=== PATIENT | male | born 1965 | race African-American/Black ===

== ENCOUNTER 2016-11-15 05:13 | Inpatient (IN) | payer MEDICAID ==
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
[2016-11-15] MEDS ORDERED: VANCOMYCIN HCL INJ 1000 MG VIAL IV ONE (05:41)
[2016-11-15 06:22] LABS: ABSOLUTE EOSINOPHILS # (AUTO) 0.2 10^3/uL (0.0-0.6); ABSOLUTE LYMPHOCYTES (AUTO) 2.3 10^3/uL (0.5-4.7); ABSOLUTE MONOCYTES (AUTO) 1.6 10^3/uL (0.1-1.4); ABSOLUTE NEUT (AUTO) 9.3 10^3/uL (1.7-8.2); BASOPHILS % (AUTO) 0.2 % (0-2); EOSINOPHILS % (AUTO) 1.3 % (0-6); HEMATOCRIT 39.6 % (37.9-51.0); HEMOGLOBIN 13.6 g/dL (13.5-17.0); HGB HCT DIFFERENCE 1.2; LYMPHOCYTES % (AUTO) 17.3 % (13-45); MEAN CORPUSCULAR HEMOGLOBIN 32.9 pg (27.0-33.4); MEAN CORPUSCULAR HGB CONC 34.4 g/dL (32.0-36.0); MEAN CORPUSCULAR VOLUME 96 fl (80-97); MONOCYTES % (AUTO) 11.7 % (3-13); RED BLOOD COUNT 4.13 10^6/uL (4.35-5.55); RED CELL DISTRIBUTION WIDTH 13.6 % (11.5-14.0); SEGMENTED NEUTROPHILS % (AUTO) 69.5 % (42-78); WHITE BLOOD COUNT 13.4 10^3/uL (4.0-10.5)
[2016-11-15] MEDS ORDERED: CEFTRIAXONE 1 GM/D5W RTU 50 ML IV ONE (06:23)
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
[2016-11-15 06:40] LABS: ALANINE AMINOTRANSFERASE 47 U/L (21-72); ALKALINE PHOSPHATASE 102 U/L (38-126); ANION GAP 13 (5-19); ASPARTATE AMINO TRANSFERASE 55 U/L (17-59); BILIRUBIN,DIRECT 0.7 mg/dL (0.0-0.4); BILIRUBIN,TOTAL 2.8 mg/dL (0.2-1.3); BLOOD UREA NITROGEN 40 mg/dL (7-20); CALCIUM 9.1 mg/dL (8.4-10.2); CARBON DIOXIDE 25 mmol/L (22-30); CHLORIDE 104 mmol/L (98-107); CREATININE RESULT 2.49 mg/dL (0.52-1.25); GLUCOSE 114 mg/dL (75-110); SODIUM 142.3 mmol/L (137-145); TOTAL PROTEIN 8.5 g/dL (6.3-8.2)
[2016-11-15 07:01] LABS: ERYTHROCYTE SEDIMENTATION RATE 93 mm/hr (0-15)
[2016-11-15 09:29] LABS: URINE BARBITURATES SCREEN NEGATIVE; URINE METHADONE SCREEN NEGATIVE; URINE OPIATES LOW NEGATIVE; URINE PHENCYCLIDINE SCREEN NEGATIVE
[2016-11-15] MEDS ORDERED: ONDANSETRON HCL INJ/PF 4 MG/2 ML SDV IV PRN (09:31)
[2016-11-15] MEDS ORDERED: ACETAMINOPHEN 325 MG TABLET PO PRN (09:31)
--- NOTE | 2016-11-15 09:55 | PDOC H&P ---
History of Present Illness Admission Date/PCP: 11/15/16 09:11 Patient complains of: Upper extremity pain and swelling History of Present Illness: KELLY MATHEWS is a 51 year old male, history of HIV who has blood testing on his right upper extremity about a week ago started to develop pain and some swelling on the forearm on the right side from where the blood was drawn. Subsequently this was followed by redness with chills and fever. No purulent drainage was noted. The patient was started on amoxicillin by his primary care physician but the swelling and pain got worse therefore the patient presents to the emergency room for evaluation. WBC was elevated at 13.4. Patient was given vancomycin intravenously and was referred for admission. He denies any sinus congestion or sore throat nor cough or chest congestion. Likewise there is no earaches or pain or drainage. There is no dysuria urgency or frequency nor penile discharge. No diarrhea. Patient denies having any rash or boils elsewhere. Past Medical History Cardiac Medical History: Reports: Coronary Artery Disease, Myocardial Infarction - stents, Hyperlipidema, Hypertension Neurological Medical History: Reports: Ischemic CVA Renal/ Medical History: Reports: Chronic Kidney Disease - Stage III Infectious Medical History: Reports: HIV Past Surgical History Past Surgical History: Reports: Cardiac Catheterization - with stents, Coronary Stent - x 8 Social History Smoking Status: Current Every Day Smoker Frequency of Alcohol Use: None Hx Recreational Drug Use: Yes - Patient reports being sober for about a year. Drugs: Heroin Family History Family History: DM Parental Family History Reviewed: Yes Children Family History Reviewed: Yes Sibling(s) Family History Reviewed.: Yes Medication/Allergy Home Medications: Abacavir Sulfate [Abacavir 300 mg Tablet] 300 mg PO BID 03/19/14 Amlodipine Besylate [Norvasc 10 mg Tablet] 10 mg PO DAILY 03/19/14 Atazanavir Sulfate [Reyataz 300 mg Capsule] 300 mg PO DAILY 03/19/14 Lamivudine [Epivir 150 Mg Tablet] 150 mg PO DAILY 03/19/14 Lisinopril [Prinivil 10 mg Tablet] 10 mg PO DAILY 03/19/14 Pravastatin Sodium [Pravachol] 20 mg PO QHS 03/19/14 Ritonavir [Norvir 100 Mg Capsule] 100 mg PO DAILY 03/19/14 Meclizine HCl [Antivert 25 mg Tablet] 25 mg PO TID PRN #30 tablet 03/27/16 Meclizine HCl [Antivert 25 mg Tablet] 25 mg PO TID PRN #21 tablet 04/03/16 Allergies/Adverse Reactions: No Known Allergies Allergy (Verified 04/03/16 12:03) Review of Systems Constitutional: PRESENT: chills, fever(s). ABSENT: headache(s), night sweats, weakness, weight gain, weight loss Eyes: ABSENT: visual disturbances Ears: ABSENT: hearing changes Nose, Mouth, and Throat: ABSENT: mouth pain, sore throat Cardiovascular: ABSENT: chest pain, dyspnea on exertion, edema, orthropnea, palpitations Respiratory: ABSENT: cough, dyspnea, hemoptysis, sputum Gastrointestinal: ABSENT: abdominal pain, constipation, diarrhea, dysphagia, hematemesis, hematochezia, melena, nausea, vomiting Genitourinary: ABSENT: difficulty urinating, dysuria, hematuria Musculoskeletal: ABSENT: joint swelling Integumentary: PRESENT: erythema - Right upper extremity, rash - Right upper extremity. ABSENT: pruritus, wounds Neurological: ABSENT: abnormal gait, abnormal speech, confusion, dizziness, focal weakness, syncope Psychiatric: ABSENT: anxiety, depression, homidical ideation, suicidal ideation Endocrine: ABSENT: cold intolerance, heat intolerance, polydipsia, polyuria Hematologic/Lymphatic: ABSENT: easy bleeding, easy bruising Physical Exam Vital Signs: Temp Pulse Resp BP Pulse Ox 97.7 F 87 18 113/78 96 11/15/16 05:19 11/15/16 05:19 11/15/16 05:19 11/15/16 05:19 11/15/16 05:19 General appearance: PRESENT: no acute distress, cooperative, well-developed, well-nourished Head exam: PRESENT: atraumatic, normocephalic Eye exam: PRESENT: conjunctiva pink, EOMI, PERRLA. ABSENT: scleral icterus Ear exam: PRESENT: normal external ear exam Mouth exam: PRESENT: moist, neck supple, tongue midline, other - No thrush Throat exam: ABSENT: post pharyngeal erythema, tonsillar erythema Neck exam: ABSENT: carotid bruit, JVD, lymphadenopathy, thyromegaly Respiratory exam: PRESENT: clear to auscultation edna. ABSENT: rales, rhonchi, wheezes Cardiovascular exam: PRESENT: RRR. ABSENT: diastolic murmur, rubs, systolic murmur Pulses: PRESENT: normal dorsalis pedis pul Vascular exam: PRESENT: normal capillary refill GI/Abdominal exam: PRESENT: normal bowel sounds, soft. ABSENT: distended, guarding, mass, organolmegaly, rebound, tenderness Rectal exam: PRESENT: deferred Extremities exam: PRESENT: full ROM, other - positive edema and swelling on the right forearm from the elbow. There is noted in duration on the medial aspect of the right forearm. There is tenderness and warmth as well as erythema noted as well.. ABSENT: calf tenderness, clubbing, pedal edema Neurological exam: PRESENT: alert, awake, oriented to person, oriented to place , oriented to time, oriented to situation, CN II-XII grossly intact. ABSENT: motor sensory deficit Psychiatric exam: PRESENT: appropriate affect, normal mood. ABSENT: homicidal ideation, suicidal ideation Skin exam: PRESENT: dry, intact, warm. ABSENT: cyanosis, rash Assessment & Plan - Diagnosis (1) Cellulitis Qualifiers: Site of cellulitis: extremity Site of cellulitis of extremity: upper extremity Laterality: right Qualified Code(s): L03.113 - Cellulitis of right upper limb Is this a current diagnosis for this admission?: Yes (2) Essential hypertension Is this a current diagnosis for this admission?: Yes (3) Chronic kidney disease, stage III (moderate) Is this a current diagnosis for this admission?: Yes (4) Coronary artery disease Qualifiers: Coronary Disease-Associated Artery/Lesion type: [place] artery [place] vs. transplanted heart: [place] heart Associated angina: without angina Qualified Code(s): I25.10 - Atherosclerotic heart disease of [place] coronary artery without angina pectoris Is this a current diagnosis for this admission?: Yes (5) Hyperlipidemia Qualifiers: Hyperlipidemia type: unspecified Qualified Code(s): E78.5 - Hyperlipidemia, unspecified Is this a current diagnosis for this admission?: Yes (6) HIV (human immunodeficiency virus infection) Is this a current diagnosis for this admission?: Yes (7) History of stroke Is this a current diagnosis for this admission?: Yes - Time Time Spent: 50 to 70 Minutes - Inpatient Certification Based on my medical assessment, after consideration of the patient's comorbidities, presenting symptoms, or acuity I expect that the services needed warrant INPATIENT care.: Yes I certify that my determination is in accordance with my understanding of Medicare's requirements for reasonable and necessary INPATIENT services [42 CFR 412.3e].: Yes Medical Necessity: Failure to Improve With Outpatient Therapy, Need for Pain Control, Need for IV Antibiotics - Plan Summary Plan Summary: Patient will be admitted to the medical floor. Blood culture was sent from the emergency room. I will begin intravenous Invanz and vancomycin. I will gently hydrate the patient and monitor the creatinine. DVT prophylaxis with Lovenox will be placed. Further testing depends on the initial evaluations outlined above. The issue retroviral medications.
[2016-11-15] MEDS ORDERED: ABACAVIR SULFATE 300 MG PO SCH (10:00)
[2016-11-15] MEDS ORDERED: ERTAPENEM SODIUM INJ 1 GM VIAL IV SCH (10:00)
[2016-11-15] MEDS ORDERED: (PENDING PHARMACY ID) (Atazanavir Sulfate [Reyataz 300 Mg Capsule] 300 MG) PO SCH (10:00)
[2016-11-15] MEDS ORDERED: VANCOMYCIN HCL INJ 1000 MG VIAL IV SCH (10:00)
[2016-11-15 10:37] LABS: APPEARANCE,URINE CLEAR; BILIRUBIN,URINE NEGATIVE (NEGATIVE); GLUCOSE, URINE NEGATIVE (NEGATIVE); KETONES,URINE NEGATIVE (NEGATIVE); LEUKOCYTE ESTERASE,URINE NEGATIVE (NEGATIVE); NITRITE,URINE NEGATIVE (NEGATIVE); PROTEIN,URINE 30 mg/dL (NEGATIVE); URINE SPECIFIC GRAVITY 1.008
[2016-11-15] MEDS: NORMAL SALINE 1000 ML 1,000 ML IV PRN (10:43)
[2016-11-15] MEDS ORDERED: RITONAVIR 100 MG TABLET PO ONE (11:00)
--- NOTE | 2016-11-15 11:34 | RADIOLOGY REPORT (SQ) ---
EXAM DESCRIPTION: VENOUS UNILATERAL UPPER COMPLETED DATE/TIME: 11/15/2016 11:13 am REASON FOR STUDY: upper extremity right edema COMPARISON: None. TECHNIQUE: Dynamic and static vernon scale and color images acquired of the right arm venous system. S elected spectral images acquired with additional compression and augmentation maneuvers. The contrala teral subclavian vein and internal jugular vein were also imaged. Images stored on PACS. LIMITATIONS: None. FINDINGS: INTERNAL JUGULAR VEIN: Normal phasicity, compression, augmentation. No visualized echogeni c material on vernon scale. No defects on color images. Comparison opposite side normal. SUBCLAVIAN VEIN: Normal compression, augmentation. No visualized echogenic material on vernon scale. No defects on color images. AXILLARY VEIN: Normal compression, augmentation. No visualized echogenic material on vernon scale. No d efects on color images. BRACHIAL VEIN: Normal compression, augmentation. No visualized echogenic material on vernon scale. No d efects on color images. BASILIC VEIN: Normal compression, augmentation. No visualized echogenic material on vernon scale. No de fects on color images. CEPHALIC VEIN: Normal compression, augmentation. No visualized echogenic material on vernon scale. No d efects on color images. OTHER: No other significant finding. CONTRALATERAL SUBCLAVIAN VEIN AND INTERNAL JUGULAR VEIN: Normal phasicity, compression and augmentation. No visualized echogenic material on vernon scale. No de fects on color images. IMPRESSION: NO EVIDENCE DVT OR SVT IN THE RIGHT ARM. TECHNICAL DOCUMENTATION: JOB ID: [id number] [employer]- All Rights Reserved
[2016-11-15] MEDS: OXYCODONE-ACETAMINOPHEN 5-325 MG TABLET PO PRN ×2 (12:12→20:52)
[2016-11-15] MEDS: ERTAPENEM SODIUM 1 GM in NORMAL SALINE 50 ML IV SCH (12:27)
[2016-11-15] MEDS: ENOXAPARIN SODIUM INJ 40 MG/0.4 ML DISP.SYRIN SUBCUT SCH (13:17)
[2016-11-15] MEDS: DOCUSATE SODIUM 100 MG CAPSULE PO SCH ×2 (13:18→17:47)
[2016-11-15] MEDS: AMLODIPINE BESYLATE 10 MG TABLET PO SCH (13:18)
[2016-11-15] MEDS: VANCOMYCIN HCL 1,000 MG in DEXTROSE 5%-WATER 250 ML IV SCH (14:59)
[2016-11-16] MEDS: LANSOPRAZOLE 30 MG TAB.RAP.DR PO SCH (05:12)
[2016-11-16 05:32] LABS: HEMATOCRIT 37.4 % (37.9-51.0); HEMOGLOBIN 12.8 g/dL (13.5-17.0); MEAN CORPUSCULAR HEMOGLOBIN 32.6 pg (27.0-33.4); MEAN CORPUSCULAR HGB CONC 34.1 g/dL (32.0-36.0); MEAN CORPUSCULAR VOLUME 96 fl (80-97); RED BLOOD COUNT 3.91 10^6/uL (4.35-5.55); RED CELL DISTRIBUTION WIDTH 13.4 % (11.5-14.0); WHITE BLOOD COUNT 8.6 10^3/uL (4.0-10.5)
[2016-11-16 05:50] LABS: ANION GAP 9 (5-19); BLOOD UREA NITROGEN 24 mg/dL (7-20); CARBON DIOXIDE 22 mmol/L (22-30); CHLORIDE 110 mmol/L (98-107); CREATININE RESULT 1.87 mg/dL (0.52-1.25); GLUCOSE 115 mg/dL (75-110); POTASSIUM 3.8 mmol/L (3.6-5.0); SODIUM 141.3 mmol/L (137-145)
[2016-11-16] MEDS: OXYCODONE-ACETAMINOPHEN 5-325 MG TABLET PO PRN ×2 (07:25→20:54)
[2016-11-16] MEDS: NORMAL SALINE 1000 ML 1,000 ML IV PRN (07:26)
[2016-11-16] MEDS: MORPHINE SULFATE 10 MG/ML INJ IV PRN (08:29)
[2016-11-16] MEDS: ENOXAPARIN SODIUM INJ 40 MG/0.4 ML DISP.SYRIN SUBCUT SCH (08:32)
[2016-11-16] MEDS: AMLODIPINE BESYLATE 10 MG TABLET PO SCH (08:32)
[2016-11-16] MEDS: DOCUSATE SODIUM 100 MG CAPSULE PO SCH ×2 (08:32→17:35)
--- NOTE | 2016-11-16 11:06 | PDOC PROGRESS REPORT ---
Subjective Progress Note for:: 11/16/16 Subjective:: Upper extremity swelling and pain is unchanged. Patient has minimal relief with oral narcotics. No diarrhea. No temperature spikes chills or fever. No shortness of breath or chest pain. Physical Exam Vital Signs: Temp Pulse Resp BP Pulse Ox 99.5 F 94 24 H 108/75 100 11/16/16 07:17 11/16/16 07:17 11/16/16 07:17 11/16/16 07:17 11/16/16 07:17 Intake & Output 11/15/16 11/16/16 11/17/16 06:59 06:59 06:59 Intake Total 1955 Output Total 1190 Balance 765 Weight 82.5 kg General appearance: PRESENT: no acute distress, cooperative Head exam: PRESENT: normocephalic Eye exam: PRESENT: EOMI Mouth exam: PRESENT: moist, neck supple Neck exam: ABSENT: JVD Respiratory exam: PRESENT: clear to auscultation edna. ABSENT: rhonchi Cardiovascular exam: PRESENT: RRR. ABSENT: gallop GI/Abdominal exam: PRESENT: normal bowel sounds, soft. ABSENT: distended, tenderness Extremities exam: PRESENT: other - Right forearm swelling and tenderness and induration unchanged.. ABSENT: pedal edema Neurological exam: PRESENT: alert, awake, oriented to situation Skin exam: PRESENT: dry, warm. ABSENT: cyanosis Results Laboratory Results: 11/16/16 04:48 11/16/16 04:48 11/16/16 11/16/16 04:48 04:48 WBC 8.6 RBC 3.91 L Hgb 12.8 L Hct 37.4 L MCV 96 MCH 32.6 MCHC 34.1 RDW 13.4 Plt Count 193 Sodium 141.3 Potassium 3.8 Chloride 110 H Carbon Dioxide 22 Anion Gap 9 BUN 24 H Creatinine 1.87 H Est GFR ( Amer) 47 L Est GFR (Non-Af Amer) 39 L Glucose 115 H Calcium 8.0 L Impressions: Venous Doppler Study 11/15/16 07:31 IMPRESSION: NO EVIDENCE DVT OR SVT IN THE RIGHT ARM. Assessment & Plan - Diagnosis (1) Cellulitis Qualifiers: Site of cellulitis: extremity Site of cellulitis of extremity: upper extremity Laterality: right Qualified Code(s): L03.113 - Cellulitis of right upper limb Is this a current diagnosis for this admission?: Yes (2) Essential hypertension Is this a current diagnosis for this admission?: Yes (3) Chronic kidney disease, stage III (moderate) Is this a current diagnosis for this admission?: Yes (4) Coronary artery disease Qualifiers: Coronary Disease-Associated Artery/Lesion type: [place] artery [place] vs. transplanted heart: [place] heart Associated angina: without angina Qualified Code(s): I25.10 - Atherosclerotic heart disease of [place] coronary artery without angina pectoris Is this a current diagnosis for this admission?: Yes (5) Hyperlipidemia Qualifiers: Hyperlipidemia type: unspecified Qualified Code(s): E78.5 - Hyperlipidemia, unspecified Is this a current diagnosis for this admission?: Yes (6) HIV (human immunodeficiency virus infection) Is this a current diagnosis for this admission?: Yes (7) History of stroke Is this a current diagnosis for this admission?: Yes - Time Time Spent with patient: 25-34 minutes - Plan Summary Plan Summary: Begin intravenous morphine for pain control. Obtain MRI of the upper extremity involved. Continue current antibiotics for now and follow cultures.
[2016-11-16] MEDS: ERTAPENEM SODIUM 1 GM in NORMAL SALINE 50 ML IV SCH (14:04)
[2016-11-16] MEDS: VANCOMYCIN HCL 1,000 MG in DEXTROSE 5%-WATER 250 ML IV SCH (14:15)
--- NOTE | 2016-11-16 14:34 | RADIOLOGY REPORT (SQ) ---
EXAM DESCRIPTION: MRI RT UPPER EXTREMITY WITHOUT COMPLETED DATE/TIME: 11/16/2016 2:17 pm REASON FOR STUDY: edema, abscess, fascitis COMPARISON: None. TECHNIQUE: T1 and inversion recovery weighted sequences of the forearm without contrast. CONTRAST TYPE AND DOSE: None. RENAL FUNCTION: Not applicable. LIMITATIONS: Excessive patient motion. FINDINGS: BONE MARROW: No marrow signal alteration. Specifically no marrow replacement or marrow ed jeanna. No evidence for osteomyelitis. No cortical break through. SOFT TISSUES: Increased T2 signal in the subcutaneous tissues extending into the fascia and into the muscle belly of the flexor carpi radialis. No organized fluid collection. OTHER: No other significant finding. IMPRESSION: Cellulitis, fasciitis and myositis. No evidence of osteomyelitis. TECHNICAL DOCUMENTATION: JOB ID: [id number] [employer]- All Rights Reserved
[2016-11-16] MEDS ORDERED: LAMIVUDINE 150 MG TABLET PO ONE (16:00)
[2016-11-16] MEDS ORDERED: RITONAVIR 100 MG TABLET PO ONE (16:00)
--- NOTE | 2016-11-16 21:14 | CONSULTATION REPORT E ---
Consultation Report NAME: KELLY MATHEWS : 1965 AGE: 51Y DATE: 11/16/2016 529 A TO: CLARITA PETERSON M.D. FROM: Requesting Physician HISTORY OF PRESENT ILLNESS: This is a 51-year-old male patient with a history of IV drug abuse and right side forearm developed swelling and pain for the last 1 week. The patient was admitted to the hospital from yesterday. Has pain in the right forearm and getting swelling. Admitted for cellulitis. He had an MRI scan today of the forearm. There is no drainable collection and no drainable abscess, but patient has inflammation with cellulitis and fasciitis including myositis. PAST MEDICAL HISTORY: History of IV drug abuse. PAST SURGICAL HISTORY: No major surgeries. REVIEW OF SYSTEMS: As per examination. PHYSICAL EXAMINATION: GENERAL: Male patient not in any distress, afebrile currently. HEAD/NECK: No lymphadenopathy or masses. RESPIRATORY: Both lungs clear to auscultation. CARDIOVASCULAR: Heart sounds regular. ABDOMINAL: Soft, nontender. EXTREMITIES: Right upper extremity, below the level of the elbow, right forearm and the posterolateral aspect there is some edema and tenderness present. No localized collection present. Radial pulses palpable. No sensorimotor deficits in the hand or fingers. DIAGNOSTIC DATA: I reviewed the MRI scan which shows cellulitis and also fasciitis and extending myositis but no abscess. IMPRESSION OVERALL: Cellulitis, fasciitis and myositis, no drainable abscess of the right forearm below the elbow. PLAN: 1. Hand elevation. 2. Continue IV antibiotics. 3. Recommended orthopedic consult for myositis management and also in case he develops an abscess, he may be able to be better managed with orthopedics because of the myositis and fasciitis, which I discussed with the hospitalist on-call tonight to consult orthopedics and call surgery as needed. DICTATING PHYSICIAN: CLARITA PETERSON M.D. [id number] PHY#: [id number] 2019 ID: [id number] JOB#: [id number] ACCT: [id number] cc:CLARITA PETERSON M.D. >
[2016-11-17] MEDS: OXYCODONE-ACETAMINOPHEN 5-325 MG TABLET PO PRN ×3 (04:34→22:45)
[2016-11-17] MEDS: NORMAL SALINE 1000 ML 1,000 ML IV PRN (04:35)
[2016-11-17] MEDS: LANSOPRAZOLE 30 MG TAB.RAP.DR PO SCH (04:35)
--- NOTE | 2016-11-17 08:26 | Progress Note ---
Provider Note Provider Note: November 16, 2016: 8:15 PM, I was contacted by phone by the on-call general surgeon, Dr. Tate. He recommended obtaining orthopedic consult 11/17/2016 for further evaluation of cellulitis involving patient's right upper extremity. He did not feel there was need for urgent orthopedic consult on the .
[2016-11-17] MEDS ORDERED: ONDANSETRON HCL INJ/PF 4 MG/2 ML SDV IV PRN (08:38)
--- NOTE | 2016-11-17 10:20 | PDOC PROGRESS REPORT ---
Subjective Progress Note for:: 11/17/16 Subjective:: Patient is now improving. Pain and swelling is less on the right upper extremity. Patient has more mobility on the elbow joint now. Denies any diarrhea. No chills or fever, nausea or vomiting, no abdominal pain. Physical Exam Vital Signs: Temp Pulse Resp BP Pulse Ox 98.5 F 75 14 128/74 H 96 11/17/16 07:10 11/17/16 07:10 11/17/16 07:10 11/17/16 07:10 11/17/16 07:10 Intake & Output 11/16/16 11/17/16 11/18/16 06:59 06:59 06:59 Intake Total 1955 2050 Output Total 1190 1325 Balance 765 725 Weight 82.5 kg 81.9 kg General appearance: PRESENT: no acute distress, cooperative Head exam: PRESENT: normocephalic Eye exam: PRESENT: EOMI Mouth exam: PRESENT: moist, neck supple Neck exam: ABSENT: JVD Respiratory exam: PRESENT: unlabored. ABSENT: rhonchi, wheezes Cardiovascular exam: PRESENT: RRR. ABSENT: gallop GI/Abdominal exam: PRESENT: soft. ABSENT: distended Extremities exam: PRESENT: other - Right upper extremity edema on the forearm and elbow is less. Tenderness is likewise less. Redness improved.. ABSENT: pedal edema Neurological exam: PRESENT: alert, awake, oriented to situation Skin exam: PRESENT: dry, warm. ABSENT: cyanosis Results Laboratory Results: 11/16/16 04:48 11/16/16 04:48 Impressions: Venous Doppler Study 11/15/16 07:31 IMPRESSION: NO EVIDENCE DVT OR SVT IN THE RIGHT ARM. Upper Extremity MRI 11/16/16 00:00 IMPRESSION: Cellulitis, fasciitis and myositis. No evidence of osteomyelitis. Assessment & Plan - Diagnosis (1) Cellulitis Qualifiers: Site of cellulitis: extremity Site of cellulitis of extremity: upper extremity Laterality: right Qualified Code(s): L03.113 - Cellulitis of right upper limb Is this a current diagnosis for this admission?: Yes (2) Essential hypertension Is this a current diagnosis for this admission?: Yes (3) Chronic kidney disease, stage III (moderate) Is this a current diagnosis for this admission?: Yes (4) Coronary artery disease Qualifiers: Coronary Disease-Associated Artery/Lesion type: [place] artery [place] vs. transplanted heart: [place] heart Associated angina: without angina Qualified Code(s): I25.10 - Atherosclerotic heart disease of [place] coronary artery without angina pectoris Is this a current diagnosis for this admission?: Yes (5) Hyperlipidemia Qualifiers: Hyperlipidemia type: unspecified Qualified Code(s): E78.5 - Hyperlipidemia, unspecified Is this a current diagnosis for this admission?: Yes (6) HIV (human immunodeficiency virus infection) Is this a current diagnosis for this admission?: Yes (7) History of stroke Is this a current diagnosis for this admission?: Yes - Time Time Spent with patient: 25-34 minutes - Plan Summary Plan Summary: Patient is clinically improving. Appreciate input by surgical service. If symptoms started to get worse we may need to consult orthopedics service as recommended. In the meantime we will keep the current antibiotics and follow cultures. Continue supportive care. Possible discharge home in 48 hours.
[2016-11-17] MEDS: ATAZANAVIR SULFATE PO SCH (10:46)
[2016-11-17] MEDS: DOCUSATE SODIUM 100 MG CAPSULE PO SCH ×2 (10:46→17:37)
[2016-11-17] MEDS: ENOXAPARIN SODIUM INJ 40 MG/0.4 ML DISP.SYRIN SUBCUT SCH (10:46)
[2016-11-17] MEDS: LAMIVUDINE 150 MG TABLET PO SCH (10:46)
[2016-11-17] MEDS: AMLODIPINE BESYLATE 10 MG TABLET PO SCH (10:46)
[2016-11-17] MEDS: RITONAVIR 100 MG TABLET PO SCH (11:50)
[2016-11-17] MEDS: ERTAPENEM SODIUM 1 GM in NORMAL SALINE 50 ML IV SCH (12:59)
--- NOTE | 2016-11-17 14:17 | PDOC PROGRESS REPORT ---
Subjective Progress Note for:: 11/17/16 Subjective:: Patient states the arm hurts but feels somewhat better today. Physical Exam Vital Signs: Temp Pulse Resp BP Pulse Ox 99.0 F 76 14 140/84 H 99 11/17/16 11:20 11/17/16 11:20 11/17/16 11:20 11/17/16 11:20 11/17/16 11:20 Intake & Output 11/16/16 11/17/16 11/18/16 06:59 06:59 06:59 Intake Total 1954 2049 Output Total 1190 1325 Balance 765 725 Weight 82.5 kg 81.9 kg General appearance: PRESENT: no acute distress - Patient is actually sleeping on his right arm Musculoskeletal exam: PRESENT: other - The right arm is generously edematous and erythematous along the inner aspect. Range of motion of the fingers and wrist appear preserved. There is no focal fluctuation. Results Laboratory Results: 11/16/16 04:48 11/16/16 04:48 Impressions: Venous Doppler Study 11/15/16 07:31 IMPRESSION: NO EVIDENCE DVT OR SVT IN THE RIGHT ARM. Upper Extremity MRI 11/16/16 00:00 IMPRESSION: Cellulitis, fasciitis and myositis. No evidence of osteomyelitis. Assessment & Plan - Diagnosis (1) Cellulitis Qualifiers: Site of cellulitis: extremity Site of cellulitis of extremity: upper extremity Laterality: right Qualified Code(s): L03.113 - Cellulitis of right upper limb Is this a current diagnosis for this admission?: YesPlan: Right upper extremity associated with the soft tissue patient, clinically improved. 1. We will exaggerate the amount of elevation in the right upper extremity 2. At this point point there is no indication for incision or drainage of the right upper extremity. We will sign off at this time; reconsult if needed.
[2016-11-17] MEDS: VANCOMYCIN HCL 1,250 MG in DEXTROSE 5%-WATER 250 ML IV SCH (14:39)
[2016-11-18] MEDS: NORMAL SALINE 1000 ML 1,000 ML IV PRN ×2 (04:42→23:22)
[2016-11-18 04:46] LABS: ANION GAP 9 (5-19); BLOOD UREA NITROGEN 15 mg/dL (7-20); CALCIUM 9.2 mg/dL (8.4-10.2); CARBON DIOXIDE 25 mmol/L (22-30); CHLORIDE 110 mmol/L (98-107); CREATININE RESULT 1.85 mg/dL (0.52-1.25); GLUCOSE 101 mg/dL (75-110); POTASSIUM 4.3 mmol/L (3.6-5.0); SODIUM 144.4 mmol/L (137-145)
[2016-11-18] MEDS: LANSOPRAZOLE 30 MG TAB.RAP.DR PO SCH (05:04)
[2016-11-18] MEDS: ENOXAPARIN SODIUM INJ 40 MG/0.4 ML DISP.SYRIN SUBCUT SCH (09:29)
[2016-11-18] MEDS: LAMIVUDINE 150 MG TABLET PO SCH (09:29)
[2016-11-18] MEDS: AMLODIPINE BESYLATE 10 MG TABLET PO SCH (09:29)
[2016-11-18] MEDS: DOCUSATE SODIUM 100 MG CAPSULE PO SCH ×2 (09:29→17:45)
[2016-11-18] MEDS: ATAZANAVIR SULFATE PO SCH (11:13)
[2016-11-18] MEDS: RITONAVIR 100 MG TABLET PO SCH (11:13)
[2016-11-18] MEDS: ERTAPENEM SODIUM 1 GM in NORMAL SALINE 50 ML IV SCH (11:51)
--- NOTE | 2016-11-18 12:11 | PDOC PROGRESS REPORT ---
Subjective Progress Note for:: 11/18/16 Subjective:: Patient reports decreased swelling in his arm Physical Exam Vital Signs: Temp Pulse Resp BP Pulse Ox 98.4 F 75 16 143/85 H 97 11/18/16 07:20 11/18/16 07:20 11/18/16 07:20 11/18/16 07:20 11/18/16 07:20 Intake & Output 11/17/16 11/18/16 11/19/16 06:59 06:59 06:59 Intake Total 2050 2350 Output Total 1325 1575 Balance 725 775 Weight 81.9 kg 81.8 kg General appearance: PRESENT: no acute distress Eye exam: PRESENT: conjunctiva pink. ABSENT: scleral icterus Ear exam: PRESENT: normal external ear exam Mouth exam: PRESENT: moist, tongue midline Neck exam: ABSENT: carotid bruit, JVD, lymphadenopathy, thyromegaly Respiratory exam: PRESENT: clear to auscultation edna. ABSENT: rales, rhonchi, wheezes Cardiovascular exam: PRESENT: RRR. ABSENT: diastolic murmur, rubs, systolic murmur GI/Abdominal exam: PRESENT: normal bowel sounds, soft. ABSENT: distended, guarding, mass, organolmegaly, rebound, tenderness Extremities exam: PRESENT: full ROM, other - Right arm swelling but decreased by the patient's report.. ABSENT: calf tenderness, clubbing, pedal edema Neurological exam: PRESENT: alert, awake, oriented to person, oriented to place , oriented to time, oriented to situation, CN II-XII grossly intact. ABSENT: motor sensory deficit Psychiatric exam: PRESENT: appropriate affect Skin exam: PRESENT: other - Erythema on the right medial arm. Patient reports that it is improved from yesterday. Results Laboratory Results: 11/16/16 04:48 11/18/16 03:58 11/18/16 03:58 Sodium 144.4 Potassium 4.3 Chloride 110 H Carbon Dioxide 25 Anion Gap 9 BUN 15 Creatinine 1.85 H Est GFR ( Amer) 47 L Est GFR (Non-Af Amer) 39 L Glucose 101 Calcium 9.2 Impressions: Venous Doppler Study 11/15/16 07:31 IMPRESSION: NO EVIDENCE DVT OR SVT IN THE RIGHT ARM. Upper Extremity MRI 11/16/16 00:00 IMPRESSION: Cellulitis, fasciitis and myositis. No evidence of osteomyelitis. Assessment & Plan - Diagnosis (1) Cellulitis Qualifiers: Site of cellulitis: extremity Site of cellulitis of extremity: upper extremity Laterality: right Qualified Code(s): L03.113 - Cellulitis of right upper limb Is this a current diagnosis for this admission?: YesPlan: The patient's cellulitis is clinically improving. Surgery has signed off as there appears to be no evidence for compartment syndrome. Continue with vancomycin and ertapenem. (2) Chronic kidney disease, stage III (moderate) Is this a current diagnosis for this admission?: YesPlan: The patient is euvolemic. (3) Coronary artery disease Qualifiers: Coronary Disease-Associated Artery/Lesion type: [place] artery [place] vs. transplanted heart: [place] heart Associated angina: without angina Qualified Code(s): I25.10 - Atherosclerotic heart disease of [place] coronary artery without angina pectoris Is this a current diagnosis for this admission?: YesPlan: Denies any chest pain. (4) Essential hypertension Is this a current diagnosis for this admission?: YesPlan: Stable (5) HIV (human immunodeficiency virus infection) Is this a current diagnosis for this admission?: Yes (6) Hyperlipidemia Qualifiers: Hyperlipidemia type: unspecified Qualified Code(s): E78.5 - Hyperlipidemia, unspecified Is this a current diagnosis for this admission?: Yes - Time Time Spent with patient: 25-34 minutes - Inpatient Certification Medical Necessity: Need for IV Antibiotics
[2016-11-18] MEDS: MORPHINE SULFATE 10 MG/ML INJ IV PRN ×2 (12:21→23:15)
[2016-11-18] MEDS: VANCOMYCIN HCL 1,250 MG in DEXTROSE 5%-WATER 250 ML IV SCH (13:53)
[2016-11-18] MEDS: OXYCODONE-ACETAMINOPHEN 5-325 MG TABLET PO PRN (23:04)
[2016-11-19 05:21] LABS: ABSOLUTE EOSINOPHILS # (AUTO) 0.3 10^3/uL (0.0-0.6); ABSOLUTE LYMPHOCYTES (AUTO) 2.3 10^3/uL (0.5-4.7); ABSOLUTE MONOCYTES (AUTO) 1.1 10^3/uL (0.1-1.4); ABSOLUTE NEUT (AUTO) 3.9 10^3/uL (1.7-8.2); BASOPHILS % (AUTO) 0.5 % (0-2); EOSINOPHILS % (AUTO) 4.1 % (0-6); HEMATOCRIT 37.2 % (37.9-51.0); HEMOGLOBIN 12.7 g/dL (13.5-17.0); HGB HCT DIFFERENCE 0.9; LYMPHOCYTES % (AUTO) 30.3 % (13-45); MEAN CORPUSCULAR HEMOGLOBIN 32.6 pg (27.0-33.4); MEAN CORPUSCULAR HGB CONC 34.2 g/dL (32.0-36.0); MEAN CORPUSCULAR VOLUME 95 fl (80-97); MONOCYTES % (AUTO) 14.3 % (3-13); RED BLOOD COUNT 3.92 10^6/uL (4.35-5.55); RED CELL DISTRIBUTION WIDTH 13.5 % (11.5-14.0); SEGMENTED NEUTROPHILS % (AUTO) 50.8 % (42-78); WHITE BLOOD COUNT 7.7 10^3/uL (4.0-10.5)
[2016-11-19] MEDS: LANSOPRAZOLE 30 MG TAB.RAP.DR PO SCH (05:34)
[2016-11-19 05:45] LABS: ANION GAP 10 (5-19); BLOOD UREA NITROGEN 12 mg/dL (7-20); CARBON DIOXIDE 22 mmol/L (22-30); CHLORIDE 111 mmol/L (98-107); CREATININE RESULT 1.69 mg/dL (0.52-1.25); GLUCOSE 80 mg/dL (75-110); POTASSIUM 4.5 mmol/L (3.6-5.0); SODIUM 143.1 mmol/L (137-145)
[2016-11-19] MEDS: ENOXAPARIN SODIUM INJ 40 MG/0.4 ML DISP.SYRIN SUBCUT SCH (09:23)
[2016-11-19] MEDS: OXYCODONE-ACETAMINOPHEN 5-325 MG TABLET PO PRN ×2 (09:24→18:48)
[2016-11-19] MEDS: AMLODIPINE BESYLATE 10 MG TABLET PO SCH (09:24)
[2016-11-19] MEDS: DOCUSATE SODIUM 100 MG CAPSULE PO SCH ×2 (09:25→17:25)
[2016-11-19] MEDS: LAMIVUDINE 150 MG TABLET PO SCH (09:25)
[2016-11-19] MEDS: RITONAVIR 100 MG TABLET PO SCH (11:19)
[2016-11-19] MEDS: ATAZANAVIR SULFATE PO SCH (11:19)
[2016-11-19] MEDS: ERTAPENEM SODIUM 1 GM in NORMAL SALINE 50 ML IV SCH (11:19)
--- NOTE | 2016-11-19 11:47 | PDOC PROGRESS REPORT ---
Subjective Progress Note for:: 11/19/16 Subjective:: Patient reports decreased swelling in his arm Physical Exam Vital Signs: Temp Pulse Resp BP Pulse Ox 97.7 F 71 16 119/78 100 11/19/16 07:28 11/19/16 07:28 11/19/16 07:28 11/19/16 07:28 11/19/16 07:28 Intake & Output 11/18/16 11/19/16 11/20/16 06:59 06:59 06:59 Intake Total 2350 3310 Output Total 1575 1700 Balance 775 1610 Weight 81.8 kg 81.4 kg General appearance: PRESENT: no acute distress Eye exam: PRESENT: conjunctiva pink. ABSENT: scleral icterus Mouth exam: PRESENT: moist, tongue midline Neck exam: ABSENT: JVD Respiratory exam: PRESENT: clear to auscultation edna. ABSENT: rales, rhonchi, wheezes Cardiovascular exam: PRESENT: RRR. ABSENT: diastolic murmur, rubs, systolic murmur GI/Abdominal exam: PRESENT: normal bowel sounds, soft. ABSENT: distended, guarding, mass, organolmegaly, rebound, tenderness Extremities exam: ABSENT: calf tenderness, clubbing, pedal edema Neurological exam: PRESENT: alert, awake, oriented to person, oriented to place , oriented to time, oriented to situation, CN II-XII grossly intact. ABSENT: motor sensory deficit Psychiatric exam: PRESENT: appropriate affect Skin exam: PRESENT: other - Erythema in the right arm is decreased from yesterday. Results Laboratory Results: 11/19/16 04:21 11/19/16 04:21 11/19/16 11/19/16 04:21 04:21 WBC 7.7 RBC 3.92 L Hgb 12.7 L Hct 37.2 L MCV 95 MCH 32.6 MCHC 34.2 RDW 13.5 Plt Count 295 Seg Neutrophils % 50.8 Lymphocytes % 30.3 Monocytes % 14.3 H Eosinophils % 4.1 Basophils % 0.5 Absolute Neutrophils 3.9 Absolute Lymphocytes 2.3 Absolute Monocytes 1.1 Absolute Eosinophils 0.3 Absolute Basophils 0.0 Sodium 143.1 Potassium 4.5 Chloride 111 H Carbon Dioxide 22 Anion Gap 10 BUN 12 Creatinine 1.69 H Est GFR ( Amer) 52 L Est GFR (Non-Af Amer) 43 L Glucose 80 Calcium 9.0 Impressions: Venous Doppler Study 11/15/16 07:31 IMPRESSION: NO EVIDENCE DVT OR SVT IN THE RIGHT ARM. Upper Extremity MRI 11/16/16 00:00 IMPRESSION: Cellulitis, fasciitis and myositis. No evidence of osteomyelitis. Assessment & Plan - Diagnosis (1) Cellulitis Qualifiers: Site of cellulitis: extremity Site of cellulitis of extremity: upper extremity Laterality: right Qualified Code(s): L03.113 - Cellulitis of right upper limb Is this a current diagnosis for this admission?: YesPlan: The patient's cellulitis is clinically improving. Surgery has signed off as there appears to be no evidence for compartment syndrome. Continue with vancomycin and ertapenem. (2) Chronic kidney disease, stage III (moderate) Is this a current diagnosis for this admission?: YesPlan: The patient is euvolemic. (3) Coronary artery disease Qualifiers: Coronary Disease-Associated Artery/Lesion type: [place] artery [place] vs. transplanted heart: [place] heart Associated angina: without angina Qualified Code(s): I25.10 - Atherosclerotic heart disease of [place] coronary artery without angina pectoris Is this a current diagnosis for this admission?: YesPlan: Denies any chest pain. (4) Essential hypertension Is this a current diagnosis for this admission?: YesPlan: Stable (5) HIV (human immunodeficiency virus infection) Is this a current diagnosis for this admission?: YesPlan: Continue with antiretrovirals (6) Hyperlipidemia Qualifiers: Hyperlipidemia type: unspecified Qualified Code(s): E78.5 - Hyperlipidemia, unspecified Is this a current diagnosis for this admission?: Yes - Time Time Spent with patient: 25-34 minutes - Inpatient Certification Medical Necessity: Need for IV Antibiotics
[2016-11-19] MEDS: VANCOMYCIN HCL 1,250 MG in DEXTROSE 5%-WATER 250 ML IV SCH (15:16)
[2016-11-19] MEDS: NORMAL SALINE 1000 ML 1,000 ML IV PRN (15:17)
[2016-11-20] MEDS: OXYCODONE-ACETAMINOPHEN 5-325 MG TABLET PO PRN (01:54)
[2016-11-20 05:41] LABS: ABSOLUTE EOSINOPHILS # (AUTO) 0.2 10^3/uL (0.0-0.6); ABSOLUTE MONOCYTES (AUTO) 0.6 10^3/uL (0.1-1.4); ABSOLUTE NEUT (AUTO) 2.6 10^3/uL (1.7-8.2); BASOPHILS % (AUTO) 0.8 % (0-2); EOSINOPHILS % (AUTO) 3.9 % (0-6); HEMATOCRIT 37.7 % (37.9-51.0); HEMOGLOBIN 13.1 g/dL (13.5-17.0); HGB HCT DIFFERENCE 1.6; LYMPHOCYTES % (AUTO) 37.4 % (13-45); MEAN CORPUSCULAR HEMOGLOBIN 32.9 pg (27.0-33.4); MEAN CORPUSCULAR HGB CONC 34.8 g/dL (32.0-36.0); MEAN CORPUSCULAR VOLUME 95 fl (80-97); MONOCYTES % (AUTO) 10.8 % (3-13); RED BLOOD COUNT 3.99 10^6/uL (4.35-5.55); RED CELL DISTRIBUTION WIDTH 13.2 % (11.5-14.0); SEGMENTED NEUTROPHILS % (AUTO) 47.1 % (42-78); WHITE BLOOD COUNT 5.4 10^3/uL (4.0-10.5)
[2016-11-20] MEDS: LANSOPRAZOLE 30 MG TAB.RAP.DR PO SCH (06:01)
[2016-11-20 06:04] LABS: ANION GAP 11 (5-19); BLOOD UREA NITROGEN 12 mg/dL (7-20); CALCIUM 8.8 mg/dL (8.4-10.2); CARBON DIOXIDE 22 mmol/L (22-30); CHLORIDE 112 mmol/L (98-107); CREATININE RESULT 1.84 mg/dL (0.52-1.25); GLUCOSE 118 mg/dL (75-110); POTASSIUM 4.3 mmol/L (3.6-5.0); SODIUM 145.2 mmol/L (137-145)
[2016-11-20 09:51] VITALS: BP 149/94
[2016-11-20] MEDS: AMLODIPINE BESYLATE 10 MG TABLET PO SCH (09:55)
[2016-11-20] MEDS: LAMIVUDINE 150 MG TABLET PO SCH (09:55)
[2016-11-20] MEDS: DOCUSATE SODIUM 100 MG CAPSULE PO SCH (09:55)
[2016-11-20] MEDS: ENOXAPARIN SODIUM INJ 40 MG/0.4 ML DISP.SYRIN SUBCUT SCH (09:55)
--- NOTE | 2016-11-20 13:05 | PDOC DISCHARGE SUMMARY ---
General - Admit/Disc Date/PCP Admission Date/Primary Care Provider: 11/15/16 09:32 Discharge Date: 11/20/16 - Discharge Diagnosis (1) Cellulitis Is this a current diagnosis for this admission?: YesSummary: Patient were negative. Patient was treated empirically with vancomycin and imipenem. Patient had previously been on amoxicillin as an outpatient. Sent home on a 14 day course of oral Ceftin. (2) Chronic kidney disease, stage III (moderate) Is this a current diagnosis for this admission?: Yes (3) Coronary artery disease Is this a current diagnosis for this admission?: Yes (4) Essential hypertension Is this a current diagnosis for this admission?: Yes (5) HIV (human immunodeficiency virus infection) Is this a current diagnosis for this admission?: Yes (6) Hyperlipidemia Is this a current diagnosis for this admission?: Yes - Additional Information Resuscitation Status: Full Code Discharge Diet: Cardiac Discharge Activity: Activity As Tolerated Home Medications: Abacavir Sulfate [Abacavir 300 mg Tablet] 300 mg PO BID 03/19/14 Atazanavir Sulfate [Rey[place]z 300 mg Capsule] 300 mg PO DAILY 03/19/14 Lamivudine [Epivir 150 mg Tablet] 150 mg PO DAILY 03/19/14 Ritonavir [Norvir 100 mg Capsule] 100 mg PO DAILY 03/19/14 Atorvastatin Calcium [Lipitor 40 mg Tablet] 40 mg PO DAILY 11/15/16 Furosemide [Lasix 20 mg Tablet] 20 mg PO DAILY 11/15/16 Lisinopril [Zestril] 40 mg PO DAILY 11/15/16 Omeprazole 20 mg PO DAILY 11/15/16 Ondansetron HCl [Zofran 4 mg Tablet] 1 tab PO Q8HP PRN 11/15/16 Tamsulosin HCl [Flomax] 0.4 mg PO DAILY 11/15/16 Amlodipine Besylate [Norvasc 10 mg Tablet] 10 mg PO DAILY tablet 11/20/16 Cefuroxime Axetil [Ceftin 500 mg Tablet] 1 tab PO BID #28 tablet 11/20/16 Clopidogrel Bisulfate [Plavix 75 mg Tablet] 150 mg PO DAILY 11/20/16 Oxycodone HCl/Acetaminophen [Percocet 5-325 mg Tablet] 1 tab PO Q4HP PRN #10 tablet 11/20/16 History of Present Illness History of Present Illness: KELLY MATHEWS is a 51 year old male history of HIV who presents with right upper extremity swelling for about 1 week prior to admission. The patient had a blood draw done prior to this occurring. Patient was seen in his primary care doctor's office and started amoxicillin. The patient had worsening swelling and presented to the emergency room and was started on vancomycin. Hospital Course Hospital Course: 11-year-old gentleman with HIV who presents with cellulitis of the right arm. Patient had a significant amount of soft tissue swelling and was started on vancomycin and imipenem empirically. All cultures have been negative. The patient because of the swelling and pain had a surgical consult ordered because of the concern about fasciitis. MRI was done of the upper extremity which showed no evidence for fasciitis. The surgical felt that there was no evidence for fasciitis and signed off. Patient clinically improved however all cultures were negative. Etiology of the organism is uncertain but he had failed amoxicillin as an outpatient and is switched over to Ceftin. I have suggested the patient might benefit from an additional day of IV antibiotics however he had some family emergencies that he needed to attend to and requested that we start him on antibiotics and send him home and he will follow- up with his primary care doctor in 1 week or sooner if his swelling does not continue to improve. Physical Exam Vital Signs: Temp Pulse Resp BP Pulse Ox 97.5 F 69 14 149/94 H 98 11/20/16 09:48 11/20/16 09:48 11/20/16 09:48 11/20/16 09:48 11/20/16 09:48 Intake & Output 11/19/16 11/20/16 11/21/16 06:59 06:59 06:59 Intake Total 3310 4545 Output Total 1700 1125 Balance 1610 3420 Weight 81.4 kg 82.5 kg General appearance: PRESENT: no acute distress Eye exam: PRESENT: conjunctiva pink. ABSENT: scleral icterus Mouth exam: PRESENT: moist, tongue midline Neck exam: ABSENT: JVD Respiratory exam: PRESENT: clear to auscultation edna. ABSENT: rales, rhonchi, wheezes Cardiovascular exam: PRESENT: RRR. ABSENT: diastolic murmur, rubs, systolic murmur GI/Abdominal exam: PRESENT: normal bowel sounds, soft. ABSENT: distended, guarding, mass, organolmegaly, rebound, tenderness Extremities exam: PRESENT: other - Right upper extremity has some mild edema.. ABSENT: calf tenderness, clubbing, pedal edema Neurological exam: PRESENT: alert, awake, oriented to person, oriented to place , oriented to time, oriented to situation, CN II-XII grossly intact. ABSENT: motor sensory deficit Psychiatric exam: PRESENT: appropriate affect Skin exam: PRESENT: dry, intact, warm. ABSENT: cyanosis, rash Results Laboratory Results: 11/20/16 04:49 11/20/16 04:49 11/20/16 11/20/16 04:49 04:49 WBC 5.4 RBC 3.99 L Hgb 13.1 L Hct 37.7 L MCV 95 MCH 32.9 MCHC 34.8 RDW 13.2 Plt Count 299 Seg Neutrophils % 47.1 Lymphocytes % 37.4 Monocytes % 10.8 Eosinophils % 3.9 Basophils % 0.8 Absolute Neutrophils 2.6 Absolute Lymphocytes 2.0 Absolute Monocytes 0.6 Absolute Eosinophils 0.2 Absolute Basophils 0.0 Sodium 145.2 H Potassium 4.3 Chloride 112 H Carbon Dioxide 22 Anion Gap 11 BUN 12 Creatinine 1.84 H Est GFR ( Amer) 48 L Est GFR (Non-Af Amer) 39 L Glucose 118 H Calcium 8.8 Impressions: Venous Doppler Study 11/15/16 07:31 IMPRESSION: NO EVIDENCE DVT OR SVT IN THE RIGHT ARM. Upper Extremity MRI 11/16/16 00:00 IMPRESSION: Cellulitis, fasciitis and myositis. No evidence of osteomyelitis. Qualifiers P[place]INT BEING DISCHARGED WITH ANY OF THE FOLLOWING DIAGNOSIS?: No Plan Discharge Plan: Discharged home in stable condition. Will follow up with primary care doctor in 1 week or sooner if the swelling or redness worsens. Time Spent: Greater than 30 Minutes
== END 2016-11-20 10:45 | disposition home or self-care (01) | DRG 603 ==
LOC: ER 05:13 → EH 09:11 → UNDOADMIN 09:11 → EH 09:32 → 5 10:26
DX: L03.113 Cellulitis of right upper limb (principal); I25.10 Atherosclerotic heart disease of native coronary artery without angina pectoris; I12.9 Hypertensive chronic kidney disease with stage 1 through stage 4 chronic kidney disease, or unspecified chronic kidney disease; N18.3 Chronic kidney disease, stage 3 (moderate); E78.5 Hyperlipidemia, unspecified; Z21 Asymptomatic human immunodeficiency virus [HIV] infection status; F17.210 Nicotine dependence, cigarettes, uncomplicated; Z79.899 Other long term (current) drug therapy; I25.2 Old myocardial infarction; Z95.5 Presence of coronary angioplasty implant and graft; Z86.73 Personal history of transient ischemic attack (TIA), and cerebral infarction without residual deficits
CPT/HCPCS: 36415; 80048; 80053; 80307; 81001; 85025; 85027; 85652; 87040; 93971; 96365; 96366; 96367; 99285; J0696; J1335; J1650; J2270; J3370; J3490; J7030; J7060

== ENCOUNTER → 2017-01-07 | Outpatient (CLI) | payer MEDICAID ==
[2017-01-07 15:39] LABS: ABSOLUTE EOSINOPHILS # (AUTO) 0.2 10^3/uL (0.0-0.6); ABSOLUTE LYMPHOCYTES (AUTO) 2.2 10^3/uL (0.5-4.7); ABSOLUTE MONOCYTES (AUTO) 0.5 10^3/uL (0.1-1.4); ABSOLUTE NEUT (AUTO) 1.2 10^3/uL (1.7-8.2); BASOPHILS % (AUTO) 0.7 % (0-2); HEMATOCRIT 39.8 % (37.9-51.0); HEMOGLOBIN 13.4 g/dL (13.5-17.0); HGB HCT DIFFERENCE 0.4; LYMPHOCYTES % (AUTO) 53.7 % (13-45); MEAN CORPUSCULAR HGB CONC 33.6 g/dL (32.0-36.0); MEAN CORPUSCULAR VOLUME 95 fl (80-97); MONOCYTES % (AUTO) 11.8 % (3-13); RED BLOOD COUNT 4.18 10^6/uL (4.35-5.55); RED CELL DISTRIBUTION WIDTH 14.2 % (11.5-14.0); SEGMENTED NEUTROPHILS % (AUTO) 28.8 % (42-78); WHITE BLOOD COUNT 4.1 10^3/uL (4.0-10.5)
[2017-01-07 16:04] LABS: ALANINE AMINOTRANSFERASE 62 U/L (21-72); ALBUMIN 4.5 g/dL (3.5-5.0); ALKALINE PHOSPHATASE 85 U/L (38-126); ANION GAP 12 (5-19); ASPARTATE AMINO TRANSFERASE 66 U/L (17-59); BILIRUBIN,DIRECT 0.6 mg/dL (0.0-0.4); BILIRUBIN,TOTAL 1.7 mg/dL (0.2-1.3); BLOOD UREA NITROGEN 32 mg/dL (7-20); CALCIUM 9.2 mg/dL (8.4-10.2); CARBON DIOXIDE 27 mmol/L (22-30); CHLORIDE 105 mmol/L (98-107); CREATININE RESULT 2.85 mg/dL (0.52-1.25); GLUCOSE 95 mg/dL (75-110); POTASSIUM 4.8 mmol/L (3.6-5.0); SODIUM 143.5 mmol/L (137-145); TOTAL PROTEIN 8.3 g/dL (6.3-8.2)
[2017-01-07 16:23] LABS: ERYTHROCYTE SEDIMENTATION RATE 34 mm/hr (0-15)
[2017-01-09 09:14] LABS: IMMUNOGLOBULIN G 1668 mg/dL (700-1600)
[2017-01-09 15:38] LABS: HGB A 97.3 % (94.0-98.0); HGB A2 2.7 % (0.7-3.1); HGB SOLUBILITY RESULT Negative (Negative)
[2017-01-12 15:38] LABS: A/G RATIO 1.2 (0.7-1.7); ALBUMIN 2 4.2 g/dL (2.9-4.4); ALPHA-1-GLOBULIN 2 0.2 g/dL (0.0-0.4); GAMMA GLOBULIN 1.3 g/dL (0.4-1.8); PROTEIN TOTAL SERUM 7.6 g/dL (6.0-8.5)
== END ==
LOC: OD 14:03
PROVIDERS: ATTEND Physician Assistant
DX: D64.9 Anemia, unspecified (principal); Z86.14 Personal history of Methicillin resistant Staphylococcus aureus infection
CPT/HCPCS: 36415; 80053; 82607; 82728; 82746; 82784; 83020; 83540; 83550; 84165; 84443; 85025; 85045; 85652; 86038; 86430; 86850

== ENCOUNTER → 2017-01-07 | Outpatient (CLI) | payer MEDICAID | LOC: LAB 14:58 | PROVIDERS: ATTEND Physician Assistant | DX: Z86.14 Personal history of Methicillin resistant Staphylococcus aureus infection (principal) | CPT/HCPCS: 87070 ==

== ENCOUNTER 2018-02-02 17:26 | Observation (INO) | payer MEDICAID ==
[2018-02-02] MEDS ORDERED: NITROGLYCERIN 2% OINTMENT 1 GM PACKET TP ONE (17:50)
[2018-02-02 17:55] LABS: ABSOLUTE EOSINOPHILS # (AUTO) 0.1 10^3/uL (0.0-0.6); ABSOLUTE MONOCYTES (AUTO) 0.5 10^3/uL (0.1-1.4); ABSOLUTE NEUT (AUTO) 3.6 10^3/uL (1.7-8.2); BASOPHILS % (AUTO) 0.7 % (0-2); EOSINOPHILS % (AUTO) 1.1 % (0-6); HEMATOCRIT 42.7 % (37.9-51.0); HEMOGLOBIN 14.5 g/dL (13.5-17.0); LYMPHOCYTES % (AUTO) 31.8 % (13-45); MEAN CORPUSCULAR HEMOGLOBIN 30.8 pg (27.0-33.4); MEAN CORPUSCULAR HGB CONC 33.9 g/dL (32.0-36.0); MEAN CORPUSCULAR VOLUME 91 fl (80-97); MONOCYTES % (AUTO) 7.8 % (3-13); PLATELET COUNT 171 10^3/uL (150-450); RED CELL DISTRIBUTION WIDTH 14.1 % (11.5-14.0); SEGMENTED NEUTROPHILS % (AUTO) 58.6 % (42-78); TOTAL CELLS COUNTED % (AUTO) 100 %; WHITE BLOOD COUNT 6.2 10^3/uL (4.0-10.5)
--- NOTE | 2018-02-02 17:57 | RADIOLOGY REPORT (SQ) ---
EXAM DESCRIPTION: CHEST SINGLE VIEW COMPLETED DATE/TIME: 02/02/2018 5:48 pm REASON FOR STUDY: bed 19 cp COMPARISON: 03/19/2014 EXAM PARAMETERS: NUMBER OF VIEWS: One view. TECHNIQUE: Single frontal radiographic view of the chest acquired. RADIATION DOSE: NA LIMITATIONS: None. FINDINGS: LUNGS AND PLEURA: No opacities, masses or pneumothorax. No pleural effusion. MEDIASTINUM AND HILAR STRUCTURES: No masses. Contour normal. HEART AND VASCULAR STRUCTURES: Heart normal in size. Normal vasculature. BONES: No acute findings. HARDWARE: None in the chest. OTHER: No other significant finding. IMPRESSION: NO ACUTE RADIOGRAPHIC FINDING IN THE CHEST. TECHNICAL DOCUMENTATION: JOB ID: [id number] [employer]- All Rights Reserved Reading location - IP/workstation name: [email or web address]
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
[2018-02-02] MEDS ORDERED: FAMOTIDINE INJ/PF 20 MG/2 ML SDV IV ONE (18:33)
[2018-02-02] MEDS ORDERED: FENTANYL CITRATE INJ/PF 100 MCG/2 ML AMPUL IV ONE (18:33)
[2018-02-02] MEDS ORDERED: ONDANSETRON HCL INJ/PF 4 MG/2 ML SDV IV ONE (18:33)
--- NOTE | 2018-02-02 18:35 | EKG REPORT ---
SEVERITY:- ABNORMAL ECG - SINUS RHYTHM PROBABLE INFEROLATERAL INFARCT, AGE INDETERM NONSPECIFIC T ABNORMALITIES, ANT-LAT LEADS : Confirmed by: Noel Willams MD 02-Feb-2018 18:35:19
[2018-02-02 18:40] LABS: ALANINE AMINOTRANSFERASE 180 U/L (21-72); ALBUMIN 4.1 g/dL (3.5-5.0); ALKALINE PHOSPHATASE 106 U/L (38-126); ANION GAP 9 (5-19); ASPARTATE AMINO TRANSFERASE 222 U/L (17-59); BILIRUBIN,DIRECT 0.4 mg/dL (0.0-0.4); BILIRUBIN,TOTAL 0.9 mg/dL (0.2-1.3); BLOOD UREA NITROGEN 27 mg/dL (7-20); CALCIUM 9.7 mg/dL (8.4-10.2); CARBON DIOXIDE 27 mmol/L (22-30); CHLORIDE 107 mmol/L (98-107); CREATINE KINASE 108 U/L (55-170); GLUCOSE 125 mg/dL (75-110); SODIUM 143.1 mmol/L (137-145); TOTAL PROTEIN 8.3 g/dL (6.3-8.2)
[2018-02-02] MEDS ORDERED: HYDRALAZINE HCL INJ/PF 20 MG/1 ML SDV IV ONE (18:48)
[2018-02-02 18:52] LABS: CREATINE KINASE MB 1.08 ng/mL (<4.55)
[2018-02-02 18:57] LABS: TROPONIN I 0.035 ng/mL
[2018-02-02] MEDS ORDERED: DEXTROSE 50%-WATER 25 GM/50 ML DISP.SYRIN IV PRN ×2 (22:05)
[2018-02-02] MEDS ORDERED: MAG HYDROX/AL HYDROX/SIMETH SUSP 30 ML UDCUP PO PRN (22:05)
[2018-02-02] MEDS ORDERED: ACETAMINOPHEN 325 MG TABLET PO PRN (22:05)
[2018-02-02] MEDS ORDERED: ZOLPIDEM TARTRATE 5 MG TABLET PO PRN (22:05)
[2018-02-02] MEDS ORDERED: PROMETHAZINE HCL 25 MG TABLET PO PRN (22:05)
[2018-02-02] MEDS ORDERED: DEXTROSE 40% GEL 15 GM TUBE PO PRN ×2 (22:05)
[2018-02-02] MEDS ORDERED: GLUCAGON,HUMAN RECOMB 1 MG INJ SUBCUT PRN (22:05)
[2018-02-02] MEDS ORDERED: PROMETHAZINE HCL INJ 25 MG/1 ML VIAL IV PRN (22:05)
[2018-02-02] MEDS: NITROGLYCERIN 0.4 MG/TAB 25 TAB/BOTTLE SL PRN ×2 (23:27→23:40)
[2018-02-02] MEDS: ATORVASTATIN CALCIUM 40 MG TABLET PO SCH (23:28)
[2018-02-02] MEDS: OXYCODONE-ACETAMINOPHEN 5-325 MG TABLET PO PRN (23:28)
[2018-02-03 00:11] LABS: APPEARANCE,URINE CLEAR; BILIRUBIN,URINE NEGATIVE (NEGATIVE); COLOR,URINE YELLOW; GLUCOSE, URINE NEGATIVE (NEGATIVE); KETONES,URINE NEGATIVE (NEGATIVE); LEUKOCYTE ESTERASE,URINE NEGATIVE (NEGATIVE); NITRITE,URINE NEGATIVE (NEGATIVE); PROTEIN,URINE 30 mg/dL (NEGATIVE); URINE SPECIFIC GRAVITY 1.011; UROBILINOGEN,URINE NEGATIVE mg/dL (<2.0)
--- NOTE | 2018-02-03 01:20 | PDOC H&P ---
History of Present Illness Admission Date/PCP: 02/02/18 21:07 Does not remember the name of the PCP in [place] [phone] [facility] [facility] Dr. Ernesto Montelongo ID: Dr. Luke Cunningham Patient complains of: Chest pain History of Present Illness: KELLY MATHEWS is a 53 year old male with medical history that I will outline below, remarkable for VT in 2006 and [address], HIV unknown CD4 count, bacterial endocarditis, spine osteomyelitis. Tells me that he woke up today around 7 AM with continuous chest pain, sharp in nature, on the left side of his chest radiated to his back and left upper extremity, has been continuous, he took a total of 5 nitroglycerin and the pain was going on and off , has associated clammy, dizziness, shortness of breath, nausea with one episode of vomiting for particles from yesterday. Denies any fever or chills. Tells me that he feels it was similar when he has heart attacks in the past. Tells me he is compliant with her medications. Patient is also complaining of his scrotal pain, he could not urinate, lower abdominal pain that happened 2 days ago, he was at his primary care physician and tells me workup was done including blood, urine and x-ray, he does not know the results. Tells me he believes his last cardiac workup was in 2013. Patient has history of drug abuse and is currently on Subutex, tells me he is not doing drugs since last January 23. EKG shows T wave inversions in the anterior and lateral leads, unfortunately we do not have new EKG after he was transferred from our facility to [facility] with STEMI in 2013. In the ED given Nitropaste and Zofran. By the time I went to see him he was chest pain-free. Troponin 0.035 Past Medical History Cardiac Medical History: Reports: Coronary Artery Disease - [address] 2 MIs in 2006 and 2013, Myocardial Infarction - stents, Hyperlipidema, Hypertension Neurological Medical History: Reports: Ischemic CVA Renal/ Medical History: Reports: Chronic Kidney Disease Infectious Medical History: Reports: HIV Past Surgical History Past Surgical History: Reports: Cardiac Catheterization - with stents, Coronary Stent - x 8, Orthopedic Surgery - Back surgery secondary to osteomyelitis Social History Smoking Status: Current Every Day Smoker Last Time Smoked: 02/02/18 Frequency of Alcohol Use: None Hx Recreational Drug Use: Yes - Opioids Drugs: Heroin Hx Prescription Drug Abuse: No Family History Family History: DM Parental Family History Reviewed: Yes - As above Children Family History Reviewed: NA Sibling(s) Family History Reviewed.: NA Medication/Allergy Home Medications: Abacavir Sulfate [Abacavir 300 mg Tablet] 300 mg PO BID 03/19/14 Atazanavir Sulfate [Reyataz 300 mg Capsule] 300 mg PO DAILY 03/19/14 Lamivudine [Epivir 150 mg Tablet] 150 mg PO DAILY 03/19/14 Ritonavir [Norvir 100 mg Capsule] 100 mg PO DAILY 03/19/14 Atorvastatin Calcium [Lipitor 40 mg Tablet] 40 mg PO DAILY 11/15/16 Furosemide [Lasix 20 mg Tablet] 20 mg PO DAILY 11/15/16 Lisinopril [Zestril] 40 mg PO DAILY 11/15/16 Omeprazole 20 mg PO DAILY 11/15/16 Ondansetron HCl [Zofran 4 mg Tablet] 1 tab PO Q8HP PRN 11/15/16 Tamsulosin HCl [Flomax] 0.4 mg PO DAILY 11/15/16 Amlodipine Besylate [Norvasc 10 mg Tablet] 10 mg PO DAILY tablet 11/20/16 Cefuroxime Axetil [Ceftin 500 mg Tablet] 1 tab PO BID #28 tablet 11/20/16 Clopidogrel Bisulfate [Plavix 75 mg Tablet] 150 mg PO DAILY 11/20/16 Oxycodone HCl/Acetaminophen [Percocet 5-325 mg Tablet] 1 tab PO Q4HP PRN #10 tablet 11/20/16 Allergies/Adverse Reactions: No Known Allergies Allergy (Verified 02/02/18 17:46) Physical Exam Vital Signs: Temp Pulse Resp BP Pulse Ox 98.5 F 66 18 159/101 H 98 02/02/18 23:06 02/02/18 23:06 02/02/18 23:06 02/02/18 23:06 02/02/18 23:06 Intake & Output 02/01/18 02/02/18 02/03/18 06:59 06:59 06:59 Weight 79.2 kg Additional comments: General appearance: Disheveled, skinny, alert and cooperative, and appears to be in no acute distress Head: Normocephalic Eyes: PEERL, EOMI, vision is grossly intact. Ears: External auditory canal and tympanic membranes clear, hearing grossly intact. Nose: No nasal discharge. Throat: Oral cavity and pharynx normal. No inflammation, swelling, exudate or lesions. Neck: Neck supple, nontender without lymphadenopathy, masses or thyromegaly. Cardiac: Normal S1 and S2. No S3, S4 or murmurs. Rhythm is regular. There is no peripheral edema, cyanosis or pallor. Extremities are warm and well perfused. Capillary refill is less than 2 seconds. No carotid bruits. Lungs: Clear to auscultation and percussion without rales, rhonchi, wheezing or diminished breath sounds. Not using accessory muscles. Abdomen: Positive bowel sounds. Soft. Nondistended, nontender. No guarding or rebound. No masses. No hepatosplenomegaly Extremities: No significant deformity or joint abnormality. No edema. Peripheral pulses intact. No varicosities. Neurological: Cranial nerves II through XII grossly intact. Strength and sensation symmetric and intact throughout. Reflexes 2+ throughout. Skin: Skin normal color, texture and turgor with no lesions or eruptions, warm and dry. Psychiatric: The mental examination revealed the patient was oriented to person , place, and time. The patient was able to demonstrate good judgment on recent , without hallucinations, abnormal affect or abnormal behaviors. Results Laboratory Results: 02/02/18 23:45 Urine Color YELLOW Urine Appearance CLEAR Urine pH 6.0 Ur Specific [place] 1.011 Urine Protein 30 H Urine Glucose (UA) NEGATIVE Urine Ketones NEGATIVE Urine Blood NEGATIVE Urine Nitrite NEGATIVE Ur Leukocyte Esterase NEGATIVE Urine WBC (Auto) 1 Urine RBC (Auto) 1 02/02/18 21:23 Troponin I Cancelled 02/02/18 02/02/18 02/02/18 17:40 18:15 18:15 WBC 6.2 RBC 4.70 Hgb 14.5 Hct 42.7 MCV 91 MCH 30.8 MCHC 33.9 RDW 14.1 H Plt Count 171 Seg Neutrophils % 58.6 Lymphocytes % 31.8 Monocytes % 7.8 Eosinophils % 1.1 Basophils % 0.7 Absolute Neutrophils 3.6 Absolute Lymphocytes 2.0 Absolute Monocytes 0.5 Absolute Eosinophils 0.1 Absolute Basophils 0.0 Sodium 143.1 Potassium 4.0 Chloride 107 Carbon Dioxide 27 Anion Gap 9 BUN 27 H Creatinine 2.54 H Est GFR ( Amer) 33 L Est GFR (Non-Af Amer) 27 L Glucose 125 H Calcium 9.7 Total Bilirubin 0.9 Direct Bilirubin 0.4 AST 222 H ALT 180 H Alkaline Phosphatase 106 Creatine Kinase 108 CK-MB (CK-2) 1.08 Troponin I 0.035 Total Protein 8.3 H Albumin 4.1 Lipase Urine Color Urine Appearance Urine pH Ur Specific [place] Urine Protein Urine Glucose (UA) Urine Ketones Urine Nitrite Urine Bilirubin Urine Urobilinogen Ur Leukocyte Esterase Urine WBC (Auto) Urine RBC (Auto) U Hyaline Cast (Auto) Urine Mucus (Auto) Urine Ascorbic Acid 02/02/18 02/02/18 18:15 23:45 WBC RBC Hgb Hct MCV MCH MCHC RDW Plt Count Seg Neutrophils % Lymphocytes % Monocytes % Eosinophils % Basophils % Absolute Neutrophils Absolute Lymphocytes Absolute Monocytes Absolute Eosinophils Absolute Basophils Sodium Potassium Chloride Carbon Dioxide Anion Gap BUN Creatinine Est GFR ( Amer) Est GFR (Non-Af Amer) Glucose Calcium Total Bilirubin Direct Bilirubin AST ALT Alkaline Phosphatase Creatine Kinase CK-MB (CK-2) Troponin I Total Protein Albumin Lipase 198.1 Urine Color YELLOW Urine Appearance CLEAR Urine pH 6.0 Ur Specific [place] 1.011 Urine Protein 30 H Urine Glucose (UA) NEGATIVE Urine Ketones NEGATIVE Urine Nitrite NEGATIVE Urine Bilirubin NEGATIVE Urine Urobilinogen NEGATIVE Ur Leukocyte Esterase NEGATIVE Urine WBC (Auto) 1 Urine RBC (Auto) 1 U Hyaline Cast (Auto) 2 Urine Mucus (Auto) RARE Urine Ascorbic Acid NEGATIVE Impressions: Chest X-Ray 02/02/18 17:27 IMPRESSION: NO ACUTE RADIOGRAPHIC FINDING IN THE CHEST. Assessment & Plan - Diagnosis (1) Chest pain Qualifiers: Chest pain type: unspecified Qualified Code(s): R07.9 - Chest pain, unspecified Is this a current diagnosis for this admission?: Yes Plan: Patient with history of coronary artery disease, 2 MIs with [address], comes with sudden onset of chest pain waking up this morning, as per patient similar to his prior MIs. We will keep the patient under telemetry monitoring and place him for a stress test as he claims he has not had any since his last VT in 2013. We will continue with his home medications. Continue with Nitropaste. (2) Chronic kidney disease, stage III (moderate) Is this a current diagnosis for this admission?: Yes Plan: Has been progressing over time, seems to be stable. Patient is aware he is going to be on hemodialysis at some point in time. (3) Essential hypertension Is this a current diagnosis for this admission?: Yes Plan: Continue with home antihypertensive medications (4) Coronary artery disease Qualifiers: Coronary Disease-Associated Artery/Lesion type: [place] artery [place] vs. transplanted heart: [place] heart Associated angina: without angina Qualified Code(s): I25.10 - Atherosclerotic heart disease of [place] coronary artery without angina pectoris Is this a current diagnosis for this admission?: Yes Plan: Continue with home medications, as per assessment #1 (5) HIV (human immunodeficiency virus infection) Is this a current diagnosis for this admission?: Yes Plan: Patient follows with infectious diseases Dr. Cunningham, does not know his CD4 count but tells me last time his viral load was undetectable. Will resume his home anti-retroviral medications. (6) Scrotal pain Is this a current diagnosis for this admission?: Yes Plan: Patient has been told he had probably kidney stones, workup has been done by his primary care physician, unknown results. So far urinalysis negative for blood. - Time Time Spent: 30 to 50 Minutes
[2018-02-03 05:14] LABS: ABSOLUTE BASOPHILS # (AUTO) 0.1 10^3/uL (0.0-0.2); ABSOLUTE EOSINOPHILS # (AUTO) 0.1 10^3/uL (0.0-0.6); ABSOLUTE LYMPHOCYTES (AUTO) 2.6 10^3/uL (0.5-4.7); ABSOLUTE MONOCYTES (AUTO) 0.7 10^3/uL (0.1-1.4); BASOPHILS % (AUTO) 0.8 % (0-2); EOSINOPHILS % (AUTO) 1.6 % (0-6); HEMATOCRIT 40.6 % (37.9-51.0); HEMOGLOBIN 13.9 g/dL (13.5-17.0); LYMPHOCYTES % (AUTO) 40.2 % (13-45); MEAN CORPUSCULAR HEMOGLOBIN 31.1 pg (27.0-33.4); MEAN CORPUSCULAR HGB CONC 34.3 g/dL (32.0-36.0); MEAN CORPUSCULAR VOLUME 91 fl (80-97); MONOCYTES % (AUTO) 10.9 % (3-13); PLATELET COUNT 150 10^3/uL (150-450); RED BLOOD COUNT 4.48 10^6/uL (4.35-5.55); RED CELL DISTRIBUTION WIDTH 14.2 % (11.5-14.0); SEGMENTED NEUTROPHILS % (AUTO) 46.5 % (42-78); TOTAL CELLS COUNTED % (AUTO) 100 %; WHITE BLOOD COUNT 6.4 10^3/uL (4.0-10.5)
[2018-02-03 05:43] LABS: URINE AMPHETAMINES SCREEN NEGATIVE; URINE BARBITURATES SCREEN NEGATIVE; URINE BENZODIAZEPINES SCREEN NEGATIVE; URINE COCAINE SCREEN NEGATIVE; URINE MARIJUANA (THC) SCREEN NEGATIVE; URINE METHADONE SCREEN NEGATIVE; URINE PHENCYCLIDINE SCREEN NEGATIVE
[2018-02-03 05:43] LABS: ALANINE AMINOTRANSFERASE 158 U/L (21-72); ALBUMIN 3.6 g/dL (3.5-5.0); ALKALINE PHOSPHATASE 86 U/L (38-126); ANION GAP 10 (5-19); ASPARTATE AMINO TRANSFERASE 178 U/L (17-59); BILIRUBIN,DIRECT 0.4 mg/dL (0.0-0.4); BILIRUBIN,TOTAL 0.8 mg/dL (0.2-1.3); BLOOD UREA NITROGEN 32 mg/dL (7-20); CALCIUM 9.2 mg/dL (8.4-10.2); CARBON DIOXIDE 25 mmol/L (22-30); CHLORIDE 109 mmol/L (98-107); GLUCOSE 119 mg/dL (75-110); POTASSIUM 4.1 mmol/L (3.6-5.0); SODIUM 143.6 mmol/L (137-145); TOTAL PROTEIN 7.3 g/dL (6.3-8.2)
[2018-02-03] MEDS: HEPARIN SOD (PORCINE) 5,000 UNIT/ML 1 ML SYRINGE SUBCUT SCH ×3 (06:08→21:10)
[2018-02-03] MEDS: LANSOPRAZOLE 30 MG TAB.RAP.DR PO SCH (06:08)
[2018-02-03] MEDS: OXYCODONE-ACETAMINOPHEN 5-325 MG TABLET PO PRN ×2 (06:08→21:15)
[2018-02-03] MEDS: NITROGLYCERIN 0.4 MG/TAB 25 TAB/BOTTLE SL PRN (06:09)
[2018-02-03] MEDS: LISINOPRIL 10 MG TABLET PO SCH (09:25)
[2018-02-03] MEDS: CLOPIDOGREL BISULFATE 75 MG TABLET PO SCH (09:25)
[2018-02-03] MEDS: FUROSEMIDE 20 MG TABLET PO SCH (09:25)
[2018-02-03] MEDS: AMLODIPINE BESYLATE 10 MG TABLET PO SCH (09:25)
[2018-02-03] MEDS: LAMIVUDINE 150 MG TABLET PO SCH (09:26)
[2018-02-03] MEDS: TAMSULOSIN HCL 0.4 MG CAP.SR.24H PO SCH (09:26)
[2018-02-03] MEDS ORDERED: RITONAVIR 100 MG PO SCH (10:00)
[2018-02-03] MEDS ORDERED: (PENDING PHARMACY ID) (Atazanavir Sulfate [Reyataz 300 Mg Capsule] 300 MG) PO SCH (10:00)
[2018-02-03] MEDS ORDERED: ABACAVIR SULFATE 300 MG PO SCH (10:00)
--- NOTE | 2018-02-03 16:02 | Physician Advisory Note ---
Physician Advisor ProgressNote .: Pursuant to the plan for [facility], I have reviewed the medical record for this patient. Physician Advisor Statement: Please consider documenting, if you agree: 1. "CP, suspect due to " (if NSTEMI, please state likely involved cardiac artery/wall) 2. ? "CHRISSY, suspect due to , baseline Cr = " ? - Cr was 2.54 on 02/02, & 2.77 on 02/03 AM. - Cr was 2.49 on 11/15/16 when he was admitted w/cellulitis, & was given IVF on adm. Cr then ranged 1.69-1.8s through d/c on 11/20/16. - DCS was 11/20/16 s/p tx'd w/vanc; on d/c had Cr 1.84 w/Na 145.2. - Cr was 2.91 on 04/03/16 when he visited the ED w/dizziness. - Cr was 2.70 on 03/27/16 when he visited the ED w/dizziness. - Cr was 2.55 on 03/19/14 when he visited the ED w/inferior STEMI & was also dx'd w/"renal insufficiency". Status: Pt w/acute CP like previous MIs, (+) trop Is, greater than they have ever been at [facility], with (+) EKG changes. He is being held for stress testing planned for 02/04 AM. He has already been in hospital care x nearly 24 hrs, & insurance is Medicaid. If you think this pt has acute NSTEMI or angina, & shouldn't have had a stress test today even if it could have been accomplished logistically, & that he isn' t safe for d/c today (due to this or CHRISSY or ...), please document this & he will be appropriate to change to Inpatient status with documentation of reasons he couldn't be safely sent home today w/further w/u outpt. If, however, you think this pt just had a nonspecific trop I leak, no angina or NC, & believe his renal fn is at baseline, & only reason no stress test done today was logistical, then just leave him as Obs for now. Thanks! CK
--- NOTE | 2018-02-03 16:40 | PDOC PROGRESS REPORT ---
Subjective Progress Note for:: 02/03/18 Subjective:: No adverse events overnight. No new complaints. He said he still having some chest pain off and on which is midsternal and nonradiating. He has a mixed response to nitroglycerin. His troponin levels have been fairly consistent, and not terribly out of the ordinary considering his level of renal impairment. He said someone came in this morning and told him his stress test is being put off until tomorrow. He does not know why. Reason For Visit: CHEST PAIN Physical Exam Vital Signs: Temp Pulse Resp BP Pulse Ox 98.6 F 97 17 115/80 100 02/03/18 12:04 02/03/18 14:00 02/03/18 12:04 02/03/18 12:04 02/03/18 12:04 Intake & Output 02/02/18 02/03/18 02/04/18 06:59 06:59 06:59 Intake Total 340 Balance 340 Weight 79.2 kg General appearance: PRESENT: no acute distress, cooperative, disheveled Respiratory exam: PRESENT: clear to auscultation edna, unlabored. ABSENT: rales , rhonchi, tachypnea, wheezes Cardiovascular exam: PRESENT: RRR, +S1, +S2. ABSENT: diastolic murmur, systolic murmur GI/Abdominal exam: PRESENT: normal bowel sounds, soft. ABSENT: guarding, rebound, tenderness Extremities exam: PRESENT: full ROM. ABSENT: pedal edema Musculoskeletal exam: PRESENT: ambulatory, normal inspection. ABSENT: deformity Neurological exam: PRESENT: alert, awake, oriented to person, oriented to place , oriented to time, oriented to situation Psychiatric exam: PRESENT: appropriate affect, normal mood Results Laboratory Results: 02/03/18 04:51 02/03/18 04:51 02/02/18 02/03/18 02/03/18 23:45 04:51 04:51 WBC 6.4 RBC 4.48 Hgb 13.9 Hct 40.6 MCV 91 MCH 31.1 MCHC 34.3 RDW 14.2 H Plt Count 150 Seg Neutrophils % 46.5 Lymphocytes % 40.2 Monocytes % 10.9 Eosinophils % 1.6 Basophils % 0.8 Absolute Neutrophils 3.0 Absolute Lymphocytes 2.6 Absolute Monocytes 0.7 Absolute Eosinophils 0.1 Absolute Basophils 0.1 Sodium 143.6 Potassium 4.1 Chloride 109 H Carbon Dioxide 25 Anion Gap 10 BUN 32 H Creatinine 2.77 H Est GFR ( Amer) 29 L Est GFR (Non-Af Amer) 24 L Glucose 119 H Calcium 9.2 Magnesium 2.2 Total Bilirubin 0.8 AST 178 H ALT 158 H Alkaline Phosphatase 86 Total Protein 7.3 Albumin 3.6 Urine Color YELLOW Urine Appearance CLEAR Urine pH 6.0 Ur Specific [place] 1.011 Urine Protein 30 H Urine Glucose (UA) NEGATIVE Urine Ketones NEGATIVE Urine Blood NEGATIVE Urine Nitrite NEGATIVE Ur Leukocyte Esterase NEGATIVE Urine WBC (Auto) 1 Urine RBC (Auto) 1 02/02/18 02/02/18 02/03/18 21:23 23:00 04:51 Troponin I Cancelled 0.044 0.038 02/03/18 11:24 Troponin I 0.035 Impressions: Chest X-Ray 02/02/18 17:27 IMPRESSION: NO ACUTE RADIOGRAPHIC FINDING IN THE CHEST. Assessment & Plan - Diagnosis (1) Chest pain Qualifiers: Chest pain type: unspecified Qualified Code(s): R07.9 - Chest pain, unspecified Is this a current diagnosis for this admission?: Yes Plan: Continue telemetry, aspirin and statin. Stress test is pending. (2) Chronic kidney disease, stage III (moderate) Is this a current diagnosis for this admission?: Yes Plan: Stable on his usual range (3) HIV (human immunodeficiency virus infection) Is this a current diagnosis for this admission?: Yes Plan: Continue his usual antiretrovirals - Time Time Spent with patient: 25-34 minutes
[2018-02-03] MEDS: ATORVASTATIN CALCIUM 40 MG TABLET PO SCH (21:09)
[2018-02-04] MEDS: HEPARIN SOD (PORCINE) 5,000 UNIT/ML 1 ML SYRINGE SUBCUT SCH ×2 (05:23→13:51)
[2018-02-04] MEDS: LANSOPRAZOLE 30 MG TAB.RAP.DR PO SCH (05:25)
[2018-02-04] MEDS ORDERED: ACETAMINOPHEN 325 MG TABLET PO PRN (07:48)
[2018-02-04] MEDS ORDERED: PROMETHAZINE HCL INJ 25 MG/1 ML VIAL IV PRN (08:00)
[2018-02-04] MEDS: OXYCODONE-ACETAMINOPHEN 5-325 MG TABLET PO PRN (08:12)
[2018-02-04] MEDS ORDERED: REGADENOSON INJ 0.4 MG/5 ML DISP.SYRIN IV ONE (12:53)
[2018-02-04] MEDS: LAMIVUDINE 150 MG TABLET PO SCH (14:00)
[2018-02-04] MEDS: LISINOPRIL 10 MG TABLET PO SCH (14:00)
[2018-02-04] MEDS: FUROSEMIDE 20 MG TABLET PO SCH (14:00)
[2018-02-04] MEDS: TAMSULOSIN HCL 0.4 MG CAP.SR.24H PO SCH (14:00)
[2018-02-04] MEDS: CLOPIDOGREL BISULFATE 75 MG TABLET PO SCH (14:00)
[2018-02-04] MEDS: AMLODIPINE BESYLATE 10 MG TABLET PO SCH (14:00)
--- NOTE | 2018-02-04 16:41 | PDOC DISCHARGE SUMMARY ---
General - Admit/Disc Date/PCP Admission Date/Primary Care Provider: 02/02/18 21:07 Discharge Date: 02/04/18 - Discharge Diagnosis (1) Chest pain Is this a current diagnosis for this admission?: Yes Summary: Enzymes remain slightly elevated because of his chronic kidney disease. Stress test was negative. (2) Chronic kidney disease, stage III (moderate) Is this a current diagnosis for this admission?: Yes Summary: Stable and its usual range. It has progressed some over time. (3) HIV (human immunodeficiency virus infection) Is this a current diagnosis for this admission?: Yes Summary: Stable on his anti-viral medications - Additional Information Discharge Diet: Cardiac Discharge Activity: Activity As Tolerated Home Medications: Atorvastatin Calcium [Lipitor 40 mg Tablet] 40 mg PO DAILY 02/03/18 Clopidogrel Bisulfate [Plavix 75 mg Tablet] 150 mg PO DAILY 02/03/18 Dolutegravir/Rilpivirine [Juluca 50-25 mg Tablet] 1 tab PO DAILY 02/03/18 Lisinopril [Prinivil 40 mg Tablet] 40 mg PO DAILY 02/03/18 Metoprolol Tartrate [Lopressor 50 mg Tablet] 50 mg PO Q12 02/03/18 Nitroglycerin [Nitrostat] 0.4 mg SL Q5MP PRN 02/03/18 Ranitidine HCl [Zantac 150 mg Tablet] 150 mg PO BID 02/03/18 History of Present Illness History of Present Illness: KELLY MATHEWS is a 53 year old male with medical history that I will outline below, remarkable for ME in 2006 and 2013 with [address], HIV unknown CD4 count, bacterial endocarditis, spine osteomyelitis. Tells me that he woke up today around 7 AM with continuous chest pain, sharp in nature, on the left side of his chest radiated to his back and left upper extremity, has been continuous, he took a total of 5 nitroglycerin and the pain was going on and off , has associated clammy, dizziness, shortness of breath, nausea with one episode of vomiting for particles from yesterday. Denies any fever or chills. Tells me that he feels it was similar when he has heart attacks in the past. Tells me he is compliant with her medications. Patient is also complaining of his scrotal pain, he could not urinate, lower abdominal pain that happened 2 days ago, he was at his primary care physician and tells me workup was done including blood, urine and x-ray, he does not know the results. Tells me he believes his last cardiac workup was in 2013. Patient has history of drug abuse and is currently on Subutex, tells me he is not doing drugs since last January 23. EKG shows T wave inversions in the anterior and lateral leads, unfortunately we do not have new EKG after he was transferred from our facility to [facility] with STEMI in 2013. In the ED given Nitropaste and Zofran. By the time I went to see him he was chest pain-free. Troponin 0.035 Hospital Course Hospital Course: His enzymes remained in a stable range and he was not having any more chest pain. He said that the real reason he came into the ER was because he had taken an into-ixy-asczapc erectile dysfunction medication and it messed up his stomach. Stress test was unremarkable. His comorbid conditions were managed with his home medication and there were not exacerbated during this hospitalization. He was discharged home today in good condition. Physical Exam Vital Signs: Temp Pulse Resp BP Pulse Ox 98.4 F 88 16 93/63 L 100 02/04/18 15:47 02/04/18 15:47 02/04/18 15:47 02/04/18 15:47 02/04/18 15:47 Intake & Output 02/03/18 02/04/18 02/05/18 06:59 06:59 06:59 Intake Total 458 Balance 458 Weight 79.2 kg 79.6 kg General appearance: PRESENT: no acute distress, cooperative, disheveled Respiratory exam: PRESENT: clear to auscultation edna, unlabored. ABSENT: rales , rhonchi, tachypnea, wheezes Cardiovascular exam: PRESENT: RRR, +S1, +S2. ABSENT: diastolic murmur, systolic murmur GI/Abdominal exam: PRESENT: normal bowel sounds, soft. ABSENT: guarding, rebound, tenderness Extremities exam: PRESENT: full ROM. ABSENT: pedal edema Musculoskeletal exam: PRESENT: ambulatory, normal inspection. ABSENT: deformity Neurological exam: PRESENT: alert, awake, oriented to person, oriented to place , oriented to time, oriented to situation Psychiatric exam: PRESENT: appropriate affect, normal mood Results Laboratory Results: 02/03/18 04:51 02/03/18 04:51 02/02/18 02/02/18 02/03/18 21:23 23:00 04:51 Troponin I Cancelled 0.044 0.038 02/03/18 11:24 Troponin I 0.035 Impressions: Chest X-Ray 02/02/18 17:27 IMPRESSION: NO ACUTE RADIOGRAPHIC FINDING IN THE CHEST. Qualifiers - * PATIENT BEING DISCHARGED WITH ANY OF THE FOLLOWING DIAGNOSIS: No
[2018-02-04 16:46] VITALS: BP 117/82
--- NOTE | 2018-02-05 13:18 | DRAGON STRESS TEST REPORT ---
Intravenous Lexiscan Cardiolite stress test using single photon emmision computerized tomography. Date of procedure:02/04/2018. Ordering Provider: Dr. Bre Smith. Patient's status: In Patient Indication: Chest pain in a patient with prior history of [place] and multiple stents. Coronary risk factors: Age, diabetes mellitus, hypertension, dyslipidemia, and tobacco abuse disorder. Resting EKG: Sinus Rhythm. T inversion in the inferolateral leads. Stress EKG: No changes of ischemia. The patient no chest pain or discomfort, and there were no arrhythmias seen. Reason for termination: Protocol. Conclusions: Normal EKG and hemodynamic response to IV Lexiscan. Nuclear data: At rest the patient was given 12.89 millicuries of technetium 99m sestamibi injected intravenously. As per protocol rest non gated SPECT images were obtained. Subsequently the patient was given intravenous Lexiscan at a dose of 0.4 mg in 5 mL intravenously, followed by flush with normal saline. Subsequently the stress dose of 33.6 millicuries of technetium 99m sestamibi was injected intravenously. As per protocol stress gated images were obtained. Nuclear interpretation: Review of images showed that there is soft tissue attenuation artifact involving the inferior wall. The rest of the segments of the myocardium had normal perfusion at rest, and normal perfusion post stress with IV Lexiscan. All segments of the myocardium had normal motion, contraction, and thickening by gated study. T. I D. ratio was normal at 1.07. Computer read rest, and stress left ventricular ejection fraction were 51 %, and 55 %, respectively. Visually both the stress and rest ejection fractions were normal, and greater than 55%. Conclusion: 1. There is no scintigraphic evidence of Lexiscan induced myocardial ischemia. 2. There is no scintigraphic evidence of myocardial infarction/scar. Recommendations: Aggressive risk factor modification, and treating the underlying co- morbidities. MTDD
== END 2018-02-04 17:09 | disposition home or self-care (01) ==
LOC: ER 17:26 → INTOOBSV 21:07 → EH 21:07 → 5 22:30
PROVIDERS: ADMIT Internal Medicine; ATTEND Internal Medicine
DX: R07.9 Chest pain, unspecified (principal); I12.9 Hypertensive chronic kidney disease with stage 1 through stage 4 chronic kidney disease, or unspecified chronic kidney disease; N18.3 Chronic kidney disease, stage 3 (moderate); B20 Human immunodeficiency virus [HIV] disease; F19.11 Other psychoactive substance abuse, in remission; N50.82 Scrotal pain; R10.30 Lower abdominal pain, unspecified; I25.10 Atherosclerotic heart disease of native coronary artery without angina pectoris; F17.210 Nicotine dependence, cigarettes, uncomplicated; R06.02 Shortness of breath; I25.2 Old myocardial infarction; Z79.899 Other long term (current) drug therapy; Z79.02 Long term (current) use of antithrombotics/antiplatelets; Z95.5 Presence of coronary angioplasty implant and graft; Z86.73 Personal history of transient ischemic attack (TIA), and cerebral infarction without residual deficits; Z86.19 Personal history of other infectious and parasitic diseases
CPT/HCPCS: 93005; 99285; 96374; 36415 ×2; 82553; 82550; 83690; 83735; 85025 ×2; 80053 ×2; 81001; 84484 ×2; 80307; 93017; 71045; 78452; 93010; A9500; J2785; J3490 ×15; J1644 ×2; J3010; J2405; S0028; Q9969; G0378

== ENCOUNTER → 2018-05-07 | Outpatient (CLI) | payer MEDICAID ==
--- NOTE | 2018-05-07 12:50 | RADIOLOGY REPORT (SQ) ---
EXAM DESCRIPTION: CHEST PA/LATERAL COMPLETED DATE/TIME: 05/07/2018 12:38 pm REASON FOR STUDY: WHEEZING COMPARISON: 03/19/2014. EXAM PARAMETERS: NUMBER OF VIEWS: two views TECHNIQUE: Digital Frontal and Lateral radiographic views of the chest acquired. RADIATION DOSE: NA LIMITATIONS: none FINDINGS: LUNGS AND PLEURA: No opacities, masses or pneumothorax. No pleural effusion. MEDIASTINUM AND HILAR STRUCTURES: No masses or contour abnormalities. HEART AND VASCULAR STRUCTURES: Heart normal size. No evidence for failure. BONES: No acute findings. HARDWARE: None in the chest. OTHER: No other significant finding. IMPRESSION: NO SIGNIFICANT RADIOGRAPHIC FINDING IN THE CHEST. TECHNICAL DOCUMENTATION: JOB ID: [id number] [employer]- All Rights Reserved Reading location - IP/workstation name: [email or web address]
--- NOTE | 2018-05-07 12:51 | RADIOLOGY REPORT (SQ) ---
EXAM DESCRIPTION: FOOT RIGHT COMPLETE COMPLETED DATE/TIME: 05/07/2018 12:38 pm REASON FOR STUDY: PAIN IN RIGHT FOOT M79.671 PAIN IN RIGHT FOOT M25.571 PAIN IN RIGHT ANKLE AND KALYAN INTS OF RIGHT FOOT R06.2 WHEEZING COMPARISON: None. NUMBER OF VIEWS: Three views. TECHNIQUE: AP, lateral and oblique without weight bearing radiographic images acquired of the right foot. LIMITATIONS: None. FINDINGS: MINERALIZATION: Normal. BONES: No acute fracture or dislocation. No worrisome bone lesions. Degenerative changes in the 1st M TP joint with hallux valgus and bunion deformity. JOINTS: No erosions. No gregory-articular osteopenia. No chondrocalcinosis. SOFT TISSUES: No swelling. No calcifications. OTHER: No other significant finding. IMPRESSION: CHRONIC CHANGES IN THE GREAT TOE. NO OTHER SIGNIFICANT FINDINGS. TECHNICAL DOCUMENTATION: JOB ID: [id number] [employer]- All Rights Reserved Reading location - IP/workstation name: [email or web address]
--- NOTE | 2018-05-07 12:52 | RADIOLOGY REPORT (SQ) ---
EXAM DESCRIPTION: ANKLE RIGHT COMPLETE COMPLETED DATE/TIME: 05/07/2018 12:38 pm REASON FOR STUDY: PAIN IN RIGHT ANKLE AND JOINTS OF RIGHT FOOT M79.671 PAIN IN RIGHT FOOT M25.571 PAIN IN RIGHT ANKLE AND JOINTS OF RIGHT FOOT R06.2 WHEEZING COMPARISON: None. NUMBER OF VIEWS: Three views. TECHNIQUE: AP, lateral, and oblique without weight bearing radiographic images acquired of the right ankle. LIMITATIONS: None. FINDINGS: MINERALIZATION: Normal. BONES: No acute fracture or dislocation. No worrisome bone lesions. Osseous density of the tip of the medial malleolus. JOINTS: No effusions. SOFT TISSUES: No soft tissue swelling. No foreign body. OTHER: No other significant finding. IMPRESSION: OSSEOUS DENSITY AT THE TIP OF THE MEDIAL MALLEOLUS WHICH MAY BE AN ACCESSORY OSSICLE OR RELATED TO OLD TRAUMA. NO OTHER SIGNIFICANT FINDINGS. TECHNICAL DOCUMENTATION: JOB ID: [id number] [employer]- All Rights Reserved Reading location - IP/workstation name: [email or web address]
[2018-05-07 13:11] LABS: ANION GAP 8 (5-19); BLOOD UREA NITROGEN 25 mg/dL (7-20); CALCIUM 9.3 mg/dL (8.4-10.2); CARBON DIOXIDE 24 mmol/L (22-30); CHLORIDE 110 mmol/L (98-107); GLUCOSE 115 mg/dL (75-110); POTASSIUM 4.5 mmol/L (3.6-5.0); SODIUM 142.2 mmol/L (137-145); URIC ACID 9.3 mg/dL (3.5-8.5)
== END ==
LOC: OD 11:48
PROVIDERS: ATTEND Family Medicine Geriatric Medicine
DX: M79.671 Pain in right foot (principal); Z79.899 Other long term (current) drug therapy; M25.571 Pain in right ankle and joints of right foot; R06.2 Wheezing
CPT/HCPCS: 36415; 71046; 80048; 84550

== ENCOUNTER → 2018-10-14 | Outpatient (CLI) | payer MEDICAID ==
[2018-10-14 12:42] LABS: HEMOGLOBIN 16.3 g/dL (13.5-17.0); MEAN CORPUSCULAR HEMOGLOBIN 31.5 pg (27.0-33.4); MEAN CORPUSCULAR HGB CONC 33.9 g/dL (32.0-36.0); MEAN CORPUSCULAR VOLUME 93 fl (80-97); PLATELET COUNT 146 10^3/uL (150-450); RED BLOOD COUNT 5.17 10^6/uL (4.35-5.55); RED CELL DISTRIBUTION WIDTH 13.9 % (11.5-14.0); WHITE BLOOD COUNT 7.1 10^3/uL (4.0-10.5)
[2018-10-14 13:00] LABS: ALANINE AMINOTRANSFERASE 205 U/L (21-72); ALBUMIN 4.3 g/dL (3.5-5.0); ALKALINE PHOSPHATASE 113 U/L (38-126); ASPARTATE AMINO TRANSFERASE 236 U/L (17-59); BILIRUBIN,DIRECT 0.5 mg/dL (0.0-0.4); BILIRUBIN,TOTAL 0.8 mg/dL (0.2-1.3); BLOOD UREA NITROGEN 26 mg/dL (7-20); CALCIUM 9.7 mg/dL (8.4-10.2); CARBON DIOXIDE 22 mmol/L (22-30); CHOLESTEROL 119.17 mg/dL (0-200); GLUCOSE 83 mg/dL (75-110); POTASSIUM 4.6 mmol/L (3.6-5.0); TOTAL PROTEIN 8.8 g/dL (6.3-8.2); TRIGLYCERIDES 129 mg/dL (<150); URIC ACID 10.1 mg/dL (3.5-8.5)
[2018-10-14 13:01] LABS: ANION GAP 11 (5-19); CHLORIDE 112 mmol/L (98-107)
[2018-10-14 13:11] LABS: DIRECT LDL 42 mg/dL (<100)
[2018-10-14 13:42] LABS: ABSOLUTE LYMPHOCYTES# (MANUAL) 2.8 10^3/uL (0.5-4.7); ABSOLUTE MONOCYTES # (MANUAL) 0.9 10^3/uL (0.1-1.4); BASOPHILS % (MANUAL) 0 % (0-2); EOSINOPHILS % (MANUAL) 8 % (0-6); LYMPHOCYTES % (MANUAL) 38 % (13-45); MONOCYTES % (MANUAL) 13 % (3-13); SEGMENTED NEUTROPHILS % (MAN) 39 % (42-78); TOTAL CELLS COUNTED 100
[2018-10-14 13:47] LABS: RBC MORPHOLOGY COMMENT NORMO-CYTIC/CHROMIC
[2018-10-14 13:49] LABS: PLATELET COMMENT DECREASED
== END ==
LOC: OD 11:14
PROVIDERS: ATTEND Family Medicine Geriatric Medicine
DX: I10 Essential (primary) hypertension (principal); R04.2 Hemoptysis; E78.5 Hyperlipidemia, unspecified; I25.10 Atherosclerotic heart disease of native coronary artery without angina pectoris; Z79.899 Other long term (current) drug therapy
CPT/HCPCS: 36415; 80053; 80061; 84443; 84550; 85025

== ENCOUNTER → 2018-12-14 | Outpatient (CLI) | payer MEDICAID ==
[2018-12-14 09:02] LABS: ABSOLUTE BASOPHILS # (AUTO) 0.1 10^3/uL (0.0-0.2); ABSOLUTE EOSINOPHILS # (AUTO) 0.3 10^3/uL (0.0-0.6); ABSOLUTE LYMPHOCYTES (AUTO) 2.7 10^3/uL (0.5-4.7); ABSOLUTE MONOCYTES (AUTO) 0.8 10^3/uL (0.1-1.4); ABSOLUTE NEUT (AUTO) 2.9 10^3/uL (1.7-8.2); BASOPHILS % (AUTO) 0.8 % (0-2); EOSINOPHILS % (AUTO) 5.1 % (0-6); HEMATOCRIT 42.9 % (37.9-51.0); HEMOGLOBIN 14.4 g/dL (13.5-17.0); MEAN CORPUSCULAR HEMOGLOBIN 31.3 pg (27.0-33.4); MEAN CORPUSCULAR HGB CONC 33.5 g/dL (32.0-36.0); MEAN CORPUSCULAR VOLUME 94 fl (80-97); MONOCYTES % (AUTO) 11.6 % (3-13); PLATELET COUNT 209 10^3/uL (150-450); RED BLOOD COUNT 4.58 10^6/uL (4.35-5.55); RED CELL DISTRIBUTION WIDTH 15.3 % (11.5-14.0); SEGMENTED NEUTROPHILS % (AUTO) 42.5 % (42-78); TOTAL CELLS COUNTED % (AUTO) 100 %; WHITE BLOOD COUNT 6.8 10^3/uL (4.0-10.5)
[2018-12-14 09:24] LABS: ALKALINE PHOSPHATASE 93 U/L (38-126); ANION GAP 10 (5-19); ASPARTATE AMINO TRANSFERASE 210 U/L (17-59); BILIRUBIN,DIRECT 0.5 mg/dL (0.0-0.4); BILIRUBIN,TOTAL 0.9 mg/dL (0.2-1.3); BLOOD UREA NITROGEN 23 mg/dL (7-20); CALCIUM 9.2 mg/dL (8.4-10.2); CARBON DIOXIDE 25 mmol/L (22-30); CHLORIDE 106 mmol/L (98-107); GLUCOSE 141 mg/dL (75-110); POTASSIUM 4.1 mmol/L (3.6-5.0); TOTAL PROTEIN 8.4 g/dL (6.3-8.2); URIC ACID 7.5 mg/dL (3.5-8.5)
--- NOTE | 2018-12-14 09:32 | RADIOLOGY REPORT (SQ) ---
EXAM DESCRIPTION: C SP 4 OR 5 VIEWS COMPLETED DATE/TIME: 12/14/2018 8:58 am REASON FOR STUDY: CERVICALGIA I10 ESSENTIAL (PRIMARY) HYPERTENSION M10.9 GOUT, UNSPECIFIED E78.5 HYPERLIPIDEMIA, UNSPECIFIED COMPARISON: None. NUMBER OF VIEWS: Five views. TECHNIQUE: AP, lateral, obliques and odontoid radiographic images acquired of the cervical spine. LIMITATIONS: None. FINDINGS: MINERALIZATION: Normal. ALIGNMENT: Anatomic. VERTEBRAE: Vertebral bodies of normal height. DISCS: Disc heights are relatively well-maintained. Mild multilevel endplate change with small osteo phytes. FORAMINA: Mild uncovertebral and facet hypertrophy with osseous neural foraminal narrowing greatest a t C3 through C5 on the right. LATERAL AND POSTERIOR ELEMENTS: Mild facet arthropathy. No facet dislocation or fracture. HARDWARE: None in the spine. SOFT TISSUES: No masses or calcifications. Lung apices clear. OTHER: No other significant finding. IMPRESSION: No evidence of acute bony abnormality of the cervical spine. Mild endplate change without significant disc height loss. Uncovertebral and facet hypertrophy with mild osseous neural foraminal narrowing greatest at C3 - C5 on the right. TECHNICAL DOCUMENTATION: JOB ID: [id number] [employer]- All Rights Reserved Reading location - IP/workstation name: [email or web address]
--- NOTE | 2018-12-14 09:33 | RADIOLOGY REPORT (SQ) ---
EXAM DESCRIPTION: SACRUM AND COCCYX COMPLETED DATE/TIME: 12/14/2018 9:05 am REASON FOR STUDY: LOW BACK PAIN I10 ESSENTIAL (PRIMARY) HYPERTENSION M10.9 GOUT, UNSPECIFIED E78.5 HYPERLIPIDEMIA, UNSPECIFIED COMPARISON: None. NUMBER OF VIEWS: Three views. TECHNIQUE: AP, lateral, and tilt views of the sacrum and coccyx. LIMITATIONS: None. FINDINGS: MINERALIZATION: Normal. BONES: No acute fracture or dislocation. No worrisome bone lesions. SOFT TISSUES: No soft tissue swelling. No foreign body. OTHER: Decreased mild osteophytosis at the pubic symphysis. IMPRESSION: NEGATIVE STUDY OF THE SACRUM AND COCCYX. TECHNICAL DOCUMENTATION: JOB ID: [id number] [employer]- All Rights Reserved Reading location - IP/workstation name: [email or web address]
--- NOTE | 2018-12-14 09:37 | RADIOLOGY REPORT (SQ) ---
EXAM DESCRIPTION: LUMBAR SPINE COMPLETE COMPLETED DATE/TIME: 12/14/2018 9:05 am REASON FOR STUDY: LOW BACK PAIN I10 ESSENTIAL (PRIMARY) HYPERTENSION M10.9 GOUT, UNSPECIFIED E78.5 HYPERLIPIDEMIA, UNSPECIFIED COMPARISON: None. NUMBER OF VIEWS: Five views including obliques. TECHNIQUE: AP, lateral, oblique, and sacral radiographic images acquired of the lumbar spine. LIMITATIONS: None. FINDINGS: MINERALIZATION: Normal. SEGMENTATION: [id number] lumbar vertebral bodies. No transitional anatomy. ALIGNMENT: Straightening of the normal lumbar lordosis. VERTEBRAE: Maintained height. No fracture or worrisome bone lesion. DISCS: Disc height loss and endplate change at L4-5 and L5-S1. POSTERIOR ELEMENTS: Pedicles and facets appear intact. No pars defects. Lower lumbar facet arthropa thy. HARDWARE: None in the spine. PARASPINAL SOFT TISSUES: Normal. PELVIS: Intact as visualized. No fractures or worrisome bone lesions. SI joints intact. OTHER: No other significant finding. IMPRESSION: No acute bony abnormality of the lumbar spine. Degenerative disc disease greatest at L4-5 and L5-S1 with mild lower lumbar facet arthropathy. TECHNICAL DOCUMENTATION: JOB ID: [id number] [employer])- All Rights Reserved Reading location - IP/workstation name: [email or web address]
== END ==
LOC: OD 08:04
PROVIDERS: ATTEND Family Medicine Geriatric Medicine
DX: I10 Essential (primary) hypertension (principal); M10.9 Gout, unspecified; E78.5 Hyperlipidemia, unspecified; Z79.899 Other long term (current) drug therapy; I25.10 Atherosclerotic heart disease of native coronary artery without angina pectoris; M54.2 Cervicalgia; M54.5 Low back pain
CPT/HCPCS: 36415; 72050; 72110; 72220; 80053; 84443; 84550; 85025

== ENCOUNTER 2018-12-15 06:33 | Emergency (ER) | payer MEDICAID ==
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
[2018-12-15 11:21] LABS: APPEARANCE,URINE CLEAR; BILIRUBIN,URINE NEGATIVE (NEGATIVE); COLOR,URINE STRAW; GLUCOSE, URINE NEGATIVE (NEGATIVE); KETONES,URINE NEGATIVE (NEGATIVE); LEUKOCYTE ESTERASE,URINE NEGATIVE (NEGATIVE); NITRITE,URINE NEGATIVE (NEGATIVE); PROTEIN,URINE NEGATIVE (NEGATIVE); URINE SPECIFIC GRAVITY 1.006; UROBILINOGEN,URINE NEGATIVE mg/dL (<2.0)
[2018-12-15 11:52] LABS: ABSOLUTE BASOPHILS # (AUTO) 0.1 10^3/uL (0.0-0.2); ABSOLUTE EOSINOPHILS # (AUTO) 0.2 10^3/uL (0.0-0.6); ABSOLUTE LYMPHOCYTES (AUTO) 2.7 10^3/uL (0.5-4.7); ABSOLUTE NEUT (AUTO) 4.7 10^3/uL (1.7-8.2); BASOPHILS % (AUTO) 1.1 % (0-2); EOSINOPHILS % (AUTO) 2.1 % (0-6); HEMATOCRIT 44.8 % (37.9-51.0); HEMOGLOBIN 15.1 g/dL (13.5-17.0); LYMPHOCYTES % (AUTO) 31.6 % (13-45); MEAN CORPUSCULAR HEMOGLOBIN 31.5 pg (27.0-33.4); MEAN CORPUSCULAR HGB CONC 33.7 g/dL (32.0-36.0); MEAN CORPUSCULAR VOLUME 94 fl (80-97); MONOCYTES % (AUTO) 11.2 % (3-13); PLATELET COUNT 196 10^3/uL (150-450); RED BLOOD COUNT 4.79 10^6/uL (4.35-5.55); RED CELL DISTRIBUTION WIDTH 15.2 % (11.5-14.0); TOTAL CELLS COUNTED % (AUTO) 100 %; WHITE BLOOD COUNT 8.6 10^3/uL (4.0-10.5)
[2018-12-15 12:09] LABS: ALBUMIN 4.2 g/dL (3.5-5.0); ALKALINE PHOSPHATASE 105 U/L (38-126); ANION GAP 10 (5-19); ASPARTATE AMINO TRANSFERASE 226 U/L (17-59); BILIRUBIN,DIRECT 0.5 mg/dL (0.0-0.4); BILIRUBIN,TOTAL 0.9 mg/dL (0.2-1.3); BLOOD UREA NITROGEN 26 mg/dL (7-20); CALCIUM 9.5 mg/dL (8.4-10.2); CARBON DIOXIDE 26 mmol/L (22-30); CHLORIDE 107 mmol/L (98-107); GLUCOSE 97 mg/dL (75-110); POTASSIUM 4.9 mmol/L (3.6-5.0); TOTAL PROTEIN 8.7 g/dL (6.3-8.2)
[2018-12-15] MEDS ORDERED: OXYCODONE-ACETAMINOPHEN 5-325 MG TABLET PO ONE (12:33)
--- NOTE | 2018-12-15 12:38 | XCELERA REPORT ---
[address] [place] [facility] [address] Lower Extremity Venous Evaluation Procedure: Color flow and duplex imaging of the veins of the right lower extremity as well as the left Common Femoral vein. Right Sided Venous Evaluation Normal vessel filling wall to wall, compression and augmentation as well as Colour flow down to the infrageniculate veins. Left Sided Venous Evaluation The left common femoral vein is fully compressible. Spontaneous and phasic flow is present in the left common femoral vein. Interpretation Summary No duplex evidence of DVT or obstruction in the right lower extremity nor in the left Common Femoral vein. Name: KELLY MATHEWS Age: 53 yrs Gender: Male : 1965 Patient Status: Emergency Patient Location: ER Study Date: 12/15/2018 11:17 AM Reason For Study: Proximal RLE pain, hx DVT Ordering Physician: MARCOS MINAYA Performed By: Kristan Briscoe : MARCOS MINAYA > Andrea Sanchez
--- NOTE | 2018-12-15 13:02 | RADIOLOGY REPORT (SQ) ---
EXAM DESCRIPTION: CT RT LOWER EXTREMITY WITHOUT COMPLETED DATE/TIME: 12/15/2018 12:52 pm REASON FOR STUDY: RLE proximal anterolateral/groin pain COMPARISON: None. TECHNIQUE: CT scan of the right hip performed without intravenous or oral contrast. Images reviewed with soft tissue and bone windows. Reconstructed coronal and sagittal MPR images reviewed. All clarisa ges stored on PACS. All CT scanners at this facility use dose modulation, iterative reconstruction, and/or weight based d osing when appropriate to reduce radiation dose to as low as reasonably achievable (ALARA). [facility]: Dose Right [facility]: CareDose [facility]: Dose Right [facility]: Teradose 4D [facility]: [employer] RADIATION DOSE: 547 mGy cm LIMITATIONS: None. FINDINGS: PELVIC BONES: No acute fracture. No worrisome bone lesions. VISUALIZED SPINE: No acute findings. SYMPTOMATIC HIP: No acute fracture or dislocation. There is mild superior joint space loss and osteo phytosis. There is subtle subchondral sclerosis of the superior surface of the femoral head. Small incidental bone islands of the right femoral head and acetabulum. Subchondral cyst formation of the superior acetabulum. OPPOSITE HIP: No acute fracture or dislocation. No worrisome bone lesions. PELVIC SOFT TISSUES: Calcific atherosclerosis of the iliac vessels. EXTRAPELVIC SOFT TISSUES: No significant findings. OTHER: No other significant finding. IMPRESSION: 1. Generally mild arthritic change of the right hip. There is degenerative subchondral cyst formation of the superior acetabulum. No fracture or dislocation. 2. There is subtle subchondral sclerosis of the superior surface of the right femoral head, concerni ng for avascular necrosis. Correlate with referable clinical signs and symptoms. MRI is the test of choice for the evaluation of suspected femoral avascular necrosis. TECHNICAL DOCUMENTATION: JOB ID: [id number] Quality ID # [id number]: Final reports with documentation of one or more dose reduction techniques (e.g., Au tomated exposure control, adjustment of the mA and/or kV according to patient size, use of iterative reconstruction technique) 2010 [employer]- All Rights Reserved Reading location - IP/workstation name: [email or web address]
[2018-12-15] MEDS ORDERED: HYDROCODONE/ACETAMINOPHEN 5-325 MG (6 TAB/ER DISP) PO PRN (13:42)
[2018-12-15 13:48] VITALS: BP 136/88
== END 2018-12-15 13:53 | disposition home or self-care (01) ==
LOC: ER 06:33
DX: M87.00 Idiopathic aseptic necrosis of unspecified bone (principal); M79.604 Pain in right leg; I10 Essential (primary) hypertension; Z86.718 Personal history of other venous thrombosis and embolism; F17.200 Nicotine dependence, unspecified, uncomplicated; I25.10 Atherosclerotic heart disease of native coronary artery without angina pectoris; I25.2 Old myocardial infarction; Z21 Asymptomatic human immunodeficiency virus [HIV] infection status; Z79.899 Other long term (current) drug therapy
CPT/HCPCS: 36415; 80053; 81001; 85025; 93971; 99284

== ENCOUNTER 2018-12-17 09:50 | Emergency (ER) | payer MEDICAID ==
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
[2018-12-17] MEDS ORDERED: OXYCODONE-ACETAMINOPHEN 5-325 MG TABLET PO ONE (12:26)
--- NOTE | 2018-12-17 16:16 | RADIOLOGY REPORT (SQ) ---
EXAM DESCRIPTION: MRI RT LOWER EXTREMITY WITHOUT COMPLETED DATE/TIME: 12/17/2018 3:42 pm REASON FOR STUDY: concern avascular necrosis femoral head COMPARISON: CT 12/15/2018 TECHNIQUE: Righthip images acquired and stored on PACS. Multiplanar images to include fat sensitive sequences as T1, fluid sensitive sequences as T2/STIR and gradient echo sequences. Large FOV fat and fluid sensitive sequences include pelvis and opposite hip. LIMITATIONS: Moderate motion artifact on numerous sequences. FINDINGS: BONE CORTEX AND MARROW: No generalized marrow replacement. No occult fracture. No worriso me bone lesions. TARGETED HIP: FEMORAL HEAD: No occult fracture. No osteophytes or subchondral cysts. Normal sphericity of femoral h ead/neck junction. No acetabular dysplasia. No evidence femoroacetabular impingement. Moderate effus ion. ACETABULUM: No acetabular dysplasia. No subchondral cysts. LABRUM: No loss of cartilage or delamination. Labrum is intact. No paralabral cysts. TROCHANTER: No trochanteric bursal effusion. No edema/fluid at the insertions of the gluteus medius and gluteus minimus. OPPOSITE HIP: Limited evaluation. No worrisome bone lesions. No significant effusion. PELVIS, LOWER LUMBAR SPINE, SACROILIAC JOINTS: PELVIS : No insufficiency/stress fractures. No significant degenerative changes. Sacroiliac joints normal. L SPINE: No significant osteophytes or degenerative changes of the visualized lumbar spine. MUSCLES AND SOFT TISSUES: Adductors and piriformis normal. Abductors and greater trochanteric bursa n ormal without edema or fluid. Iliopsoas bursa with mild edema. Hamstring attachments without edema or tear. PELVIC SOFT TISSUES: No masses or adenopathy. SCIATIC NERVE: Identified, without masses or abnormal signal. OTHER: No other significant finding. IMPRESSION: Moderate right hip joint effusion. No bone marrow edema. Correlate clinically to exclu de infection. TECHNICAL DOCUMENTATION: JOB ID: [id number] [place]-72 2010 [employer]- All Rights Reserved Reading location - IP/workstation name: [facility]
[2018-12-17] MEDS ORDERED: HYDROCODONE/ACETAMINOPHEN 5-325 MG (6 TAB/ER DISP) PO PRN (16:55)
[2018-12-17 18:03] VITALS: BP 129/71
== END 2018-12-17 18:00 | disposition home or self-care (01) ==
LOC: ER 09:50
DX: M25.451 Effusion, right hip (principal); M79.604 Pain in right leg; F17.200 Nicotine dependence, unspecified, uncomplicated; I25.10 Atherosclerotic heart disease of native coronary artery without angina pectoris; E78.00 Pure hypercholesterolemia, unspecified; B20 Human immunodeficiency virus [HIV] disease; I25.2 Old myocardial infarction
CPT/HCPCS: 99283

== ENCOUNTER 2018-12-19 12:31 | Emergency (ER) | payer MEDICAID ==
[2018-12-19] MEDS ORDERED: OXYCODONE-ACETAMINOPHEN 5-325 MG TABLET PO ONE (13:31)
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
[2018-12-19 17:12] LABS: ABSOLUTE BASOPHILS # (AUTO) 0.1 10^3/uL (0.0-0.2); ABSOLUTE EOSINOPHILS # (AUTO) 0.2 10^3/uL (0.0-0.6); ABSOLUTE LYMPHOCYTES (AUTO) 3.2 10^3/uL (0.5-4.7); ABSOLUTE MONOCYTES (AUTO) 0.8 10^3/uL (0.1-1.4); ABSOLUTE NEUT (AUTO) 3.6 10^3/uL (1.7-8.2); BASOPHILS % (AUTO) 1.3 % (0-2); HEMATOCRIT 43.1 % (37.9-51.0); HEMOGLOBIN 14.4 g/dL (13.5-17.0); LYMPHOCYTES % (AUTO) 40.4 % (13-45); MEAN CORPUSCULAR HEMOGLOBIN 31.2 pg (27.0-33.4); MEAN CORPUSCULAR HGB CONC 33.4 g/dL (32.0-36.0); MEAN CORPUSCULAR VOLUME 93 fl (80-97); MONOCYTES % (AUTO) 10.6 % (3-13); PLATELET COUNT 238 10^3/uL (150-450); RED BLOOD COUNT 4.62 10^6/uL (4.35-5.55); SEGMENTED NEUTROPHILS % (AUTO) 45.7 % (42-78); TOTAL CELLS COUNTED % (AUTO) 100 %; WHITE BLOOD COUNT 7.8 10^3/uL (4.0-10.5)
[2018-12-19 17:26] LABS: ANION GAP 12 (5-19); BLOOD UREA NITROGEN 38 mg/dL (7-20); CALCIUM 9.5 mg/dL (8.4-10.2); CARBON DIOXIDE 23 mmol/L (22-30); CHLORIDE 107 mmol/L (98-107); GLUCOSE 91 mg/dL (75-110); POTASSIUM 4.7 mmol/L (3.6-5.0)
[2018-12-19] MEDS ORDERED: KETOROLAC TROMETHAMINE 60 MG/2 ML SDV IM ONE (18:19)
[2018-12-19] MEDS ORDERED: HYDROCODONE/ACETAMINOPHEN 5-325 MG (6 TAB/ER DISP) PO PRN (18:52)
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
[2018-12-19 19:33] VITALS: BP 127/89
== END 2018-12-19 19:33 | disposition home or self-care (01) ==
LOC: ER 12:31
DX: M79.604 Pain in right leg (principal); M25.551 Pain in right hip; M25.40 Effusion, unspecified joint; F17.200 Nicotine dependence, unspecified, uncomplicated; I25.10 Atherosclerotic heart disease of native coronary artery without angina pectoris; I10 Essential (primary) hypertension; Z95.5 Presence of coronary angioplasty implant and graft; Z21 Asymptomatic human immunodeficiency virus [HIV] infection status
CPT/HCPCS: 99283; 96372; 36415; 85025; 80048; J1885

== ENCOUNTER → 2018-12-28 | Outpatient (CLI) | payer MEDICAID ==
[2018-12-28 10:40] LABS: ABSOLUTE MONOCYTES (AUTO) 0.6 10^3/uL (0.1-1.4); ABSOLUTE NEUT (AUTO) 11.6 10^3/uL (1.7-8.2); HEMATOCRIT 41.1 % (37.9-51.0); HEMOGLOBIN 13.7 g/dL (13.5-17.0); LYMPHOCYTES % (AUTO) 7.9 % (13-45); MEAN CORPUSCULAR HEMOGLOBIN 31.2 pg (27.0-33.4); MEAN CORPUSCULAR HGB CONC 33.4 g/dL (32.0-36.0); MEAN CORPUSCULAR VOLUME 93 fl (80-97); MONOCYTES % (AUTO) 4.8 % (3-13); PLATELET COUNT 325 10^3/uL (150-450); RED CELL DISTRIBUTION WIDTH 14.6 % (11.5-14.0); SEGMENTED NEUTROPHILS % (AUTO) 87.3 % (42-78); TOTAL CELLS COUNTED % (AUTO) 100 %; WHITE BLOOD COUNT 13.3 10^3/uL (4.0-10.5)
[2018-12-28 11:05] LABS: ANION GAP 15 (5-19); BLOOD UREA NITROGEN 55 mg/dL (7-20); CALCIUM 8.8 mg/dL (8.4-10.2); CARBON DIOXIDE 20 mmol/L (22-30); CHLORIDE 108 mmol/L (98-107); GLUCOSE 265 mg/dL (75-110); POTASSIUM 4.7 mmol/L (3.6-5.0)
[2018-12-28 11:13] LABS: C-REACTIVE PROTEIN < 5.0 mg/L (<10.0)
[2018-12-28 11:16] LABS: ERYTHROCYTE SEDIMENTATION RATE 69 mm/hr (0-20)
== END ==
LOC: OD 09:32
PROVIDERS: ATTEND Orthopaedic Surgery
DX: M25.551 Pain in right hip (principal)
CPT/HCPCS: 36415; 80048; 85025; 85652; 86140

== ENCOUNTER 2019-01-03 16:50 | Inpatient (IN) | payer MEDICAID ==
[2019-01-03] MEDS ORDERED: ONDANSETRON HCL INJ/PF 4 MG/2 ML SDV IV ONE (17:15)
[2019-01-03] MEDS ORDERED: NORMAL SALINE 1000 ML 2,000 ML IV ONE (17:15)
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
[2019-01-03 18:02] LABS: VENOUS BLOOD BASE EXCESS -0.5 mmol/L; VENOUS BLOOD HCO3 24.7 mmol/L (20-32); VENOUS BLOOD PCO2 42.6 mmHg (35-63); VENOUS BLOOD PH 7.38 (7.30-7.42)
[2019-01-03 18:07] LABS: HEMATOCRIT 47.4 % (37.9-51.0); HEMOGLOBIN 15.1 g/dL (13.5-17.0); MEAN CORPUSCULAR HEMOGLOBIN 31.3 pg (27.0-33.4); MEAN CORPUSCULAR HGB CONC 31.9 g/dL (32.0-36.0); MEAN CORPUSCULAR VOLUME 98 fl (80-97); PLATELET COUNT 223 10^3/uL (150-450); RED BLOOD COUNT 4.84 10^6/uL (4.35-5.55); RED CELL DISTRIBUTION WIDTH 14.7 % (11.5-14.0); WHITE BLOOD COUNT 15.8 10^3/uL (4.0-10.5)
[2019-01-03 18:20] LABS: APPEARANCE,URINE CLEAR; BILIRUBIN,URINE NEGATIVE (NEGATIVE); COLOR,URINE STRAW; GLUCOSE, URINE >=500 mg/dL (NEGATIVE); KETONES,URINE NEGATIVE (NEGATIVE); LEUKOCYTE ESTERASE,URINE NEGATIVE (NEGATIVE); NITRITE,URINE NEGATIVE (NEGATIVE); PROTEIN,URINE 30 mg/dL (NEGATIVE); UROBILINOGEN,URINE NEGATIVE mg/dL (<2.0)
[2019-01-03 18:25] LABS: ALBUMIN 3.9 g/dL (3.5-5.0); ALKALINE PHOSPHATASE 296 U/L (38-126); ANION GAP 15 (5-19); ASPARTATE AMINO TRANSFERASE 68 U/L (17-59); BILIRUBIN,DIRECT 0.4 mg/dL (0.0-0.4); BILIRUBIN,TOTAL 0.6 mg/dL (0.2-1.3); BLOOD UREA NITROGEN 75 mg/dL (7-20); CALCIUM 9.2 mg/dL (8.4-10.2); CARBON DIOXIDE 27 mmol/L (22-30); CHLORIDE 81 mmol/L (98-107); TOTAL PROTEIN 7.2 g/dL (6.3-8.2)
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
[2019-01-03 18:34] LABS: GLUCOSE 1222 mg/dL (75-110); POTASSIUM 6.2 mmol/L (3.6-5.0)
[2019-01-03] MEDS ORDERED: NORMAL SALINE 1000 ML 1,000 ML IV PRN (18:36)
[2019-01-03 18:39] LABS: ABSOLUTE LYMPHOCYTES# (MANUAL) 0.6 10^3/uL (0.5-4.7); ABSOLUTE MONOCYTES # (MANUAL) 0.6 10^3/uL (0.1-1.4); BASOPHILS % (MANUAL) 0 % (0-2); EOSINOPHILS % (MANUAL) 0 % (0-6); LYMPHOCYTES % (MANUAL) 4 % (13-45); MONOCYTES % (MANUAL) 4 % (3-13); SEGMENTED NEUTROPHILS % (MAN) 92 % (42-78); TOTAL CELLS COUNTED 100
[2019-01-03 18:40] LABS: ANISOCYTOSIS SLIGHT; PLATELET COMMENT ADEQUATE; TOXIC GRANULATION SLIGHT
--- NOTE | 2019-01-03 19:06 | RADIOLOGY REPORT (SQ) ---
EXAM DESCRIPTION: CHEST SINGLE VIEW COMPLETED DATE/TIME: 01/03/2019 6:41 pm REASON FOR STUDY: cough, high BP COMPARISON: 05/07/2018 TECHNIQUE: Single frontal radiographic view of the chest acquired. NUMBER OF VIEWS: One view. LIMITATIONS: None. FINDINGS: LUNGS AND PLEURA: No pneumothorax. Mild left basilar subsegmental atelectasis. No consol idation or pleural effusion. MEDIASTINUM AND HILAR STRUCTURES: Stable. HEART AND VASCULAR STRUCTURES: Stable. BONES: No acute findings. HARDWARE: None in the chest. OTHER: No other significant finding. IMPRESSION: Mild left basilar subsegmental atelectasis. No consolidation or pleural effusion. TECHNICAL DOCUMENTATION: JOB ID: [id number] [id number] 2010 [employer]- All Rights Reserved Reading location - IP/workstation name: [email or web address]
[2019-01-03] MEDS ORDERED: CALCIUM CHLORIDE 10% PF/INJ 1000 MG/10 ML SDV IV PRN (19:51)
[2019-01-03] MEDS ORDERED: DEXTROSE 40% GEL 15 GM TUBE PO PRN ×2 (19:52)
[2019-01-03] MEDS ORDERED: IPRATROPIUM/ALBUTEROL 0.5-2.5 MG/3 ML AMPUL NEB PRN (19:52)
[2019-01-03] MEDS ORDERED: MAG HYDROX/AL HYDROX/SIMETH SUSP 30 ML UDCUP PO PRN (19:52)
[2019-01-03] MEDS ORDERED: DEXTROSE 50%-WATER 25 GM/50 ML DISP.SYRIN IV PRN ×2 (19:52)
[2019-01-03] MEDS ORDERED: GLUCAGON,HUMAN RECOMB 1 MG INJ IM PRN (19:52)
[2019-01-03] MEDS ORDERED: INSULIN REG, HUMAN 100 UNIT/ML 3 ML VIAL (PYX) IV ONE (20:45)
[2019-01-03] MEDS ORDERED: INSULIN LISPRO 100 UNIT/ML 3 ML VIAL SUBCUT ONE (20:47)
[2019-01-03] MEDS ORDERED: HYDRALAZINE HCL INJ/PF 20 MG/1 ML SDV IV ONE (20:48)
[2019-01-03] MEDS: IPRATROPIUM/ALBUTEROL 0.5-2.5 MG/3 ML AMPUL NEB SCH (21:03)
[2019-01-03] MEDS: NORMAL SALINE 1000 ML 1,000 ML IV PRN (22:42)
[2019-01-03] MEDS: HYDRALAZINE HCL INJ/PF 20 MG/1 ML SDV IV PRN (22:43)
[2019-01-03] MEDS: HEPARIN SOD (PORCINE) 5,000 UNIT/ML 1 ML VIAL SUBCUT SCH (23:01)
[2019-01-03] MEDS: OXYCODONE-ACETAMINOPHEN 5-325 MG TABLET PO PRN (23:09)
[2019-01-04 01:41] LABS: ANION GAP 11 (5-19); BLOOD UREA NITROGEN 76 mg/dL (7-20); CALCIUM 8.7 mg/dL (8.4-10.2); CARBON DIOXIDE 23 mmol/L (22-30); CHLORIDE 100 mmol/L (98-107); POTASSIUM 5.6 mmol/L (3.6-5.0)
[2019-01-04] MEDS: INSULIN LISPRO 100 UNIT/ML 3 ML VIAL SUBCUT SCH ×4 (01:51→18:03)
[2019-01-04] MEDS: NORMAL SALINE 1000 ML 1,000 ML IV PRN ×2 (01:52→07:00)
[2019-01-04 01:54] LABS: GLUCOSE 614 mg/dL (75-110)
[2019-01-04] MEDS ORDERED: INSULIN REG, HUMAN 100 UNIT/ML 3 ML VIAL (PYX) IV ONE (03:36)
[2019-01-04] MEDS: HEPARIN SOD (PORCINE) 5,000 UNIT/ML 1 ML VIAL SUBCUT SCH ×3 (05:05→21:23)
--- NOTE | 2019-01-04 05:30 | PDOC H&P ---
History of Present Illness Admission Date/PCP: 01/03/19 20:10 FARNAZ HOOPER MD Patient complains of: Elevated glucose History of Present Illness: KELLY MATHEWS is a 53 year old male with a past medical history of HIV, stage III CKD, hypertension, coronary artery disease and right hip pain with joint effusion. He is referred to the emergency department for hyperglycemia. In the emergency department he is found to have uncontrolled hypertension, acute on chronic renal failure, a blood glucose of 1222 and hyperkalemia with peaked T waves. Patient does complain of some headache and polyuria though he denies chest pain palpitations or shortness of breath. Patient's recent medications have changed to include 60 mg p.o. daily for the last 2 weeks. In the emergency room he receives calcium, Zofran and 1 L of normal saline then referred to the hospitalist for admission. Patient denies nausea or vomiting or a history of diabetes. He does not recall the patient thinks of his viral load or CD4 count but states they are good. Past Medical History Cardiac Medical History: Reports: Coronary Artery Disease - [address] 2 MIs in 2006 and 2013, Myocardial Infarction - stents, Hyperlipidema, Hypertension Renal/ Medical History: Reports: Chronic Kidney Disease Psychiatric Medical History: Denies: Depression Infectious Medical History: Reports: HIV Past Surgical History Past Surgical History: Reports: Cardiac Catheterization - with stents, Coronary Stent - x 8, Orthopedic Surgery - Back surgery secondary to osteomyelitis Social History Information Source: Patient, [facility] Records Smoking Status: Current Every Day Smoker Frequency of Alcohol Use: None Hx Recreational Drug Use: Yes - Opioids Drugs: Heroin Hx Prescription Drug Abuse: No - Advance Directive Resuscitation Status: Full Code Family History Family History: DM Parental Family History Reviewed: Yes Children Family History Reviewed: Yes Sibling(s) Family History Reviewed.: Yes Medication/Allergy Home Medications: Atorvastatin Calcium [Lipitor 40 mg Tablet] 40 mg PO DAILY 02/03/18 Dolutegravir/Rilpivirine [Juluca 50-25 mg Tablet] 1 tab PO DAILY 02/03/18 Metoprolol Tartrate [Lopressor 50 mg Tablet] 50 mg PO Q12 02/03/18 Nitroglycerin [Nitrostat] 0.4 mg SL Q5MP PRN 02/03/18 Ranitidine HCl [Zantac 150 mg Tablet] 150 mg PO BID 02/03/18 Allopurinol [Zyloprim 100 mg Tablet] 100 mg PO DAILY 01/03/19 Amlodipine Besylate [Norvasc 5 mg Tablet] 5 mg PO DAILY 01/03/19 Aspirin [Ecotrin 81 mg EC Tablet] 81 mg PO DAILY 01/03/19 Clonidine HCl [Catapres 0.1 mg Tablet] 0.1 mg PO Q12 01/03/19 Furosemide [Lasix 20 mg Tablet] 20 mg PO DAILY 01/03/19 Meloxicam [Mobic] 7.5 mg PO BID 01/03/19 Allergies/Adverse Reactions: No Known Allergies Allergy (Verified 01/03/19 16:55) Review of Systems Constitutional: PRESENT: as per HPI, anorexia, fatigue. ABSENT: chills, fever(s), headache(s), weight gain, weight loss Eyes: ABSENT: visual disturbances Ears: ABSENT: hearing changes Cardiovascular: ABSENT: chest pain, dyspnea on exertion, edema, orthropnea, palpitations Respiratory: ABSENT: cough, hemoptysis Gastrointestinal: PRESENT: bloating. ABSENT: abdominal pain, constipation, diarrhea, hematemesis, hematochezia, nausea, vomiting Genitourinary: ABSENT: dysuria, hematuria Musculoskeletal: ABSENT: joint swelling Integumentary: ABSENT: rash, wounds Neurological: ABSENT: abnormal gait, abnormal speech, confusion, dizziness, focal weakness, frequent falls, syncope, vertigo, weakness Psychiatric: ABSENT: anxiety, depression, homidical ideation, suicidal ideation Endocrine: PRESENT: polydipsia, polyuria. ABSENT: cold intolerance, heat intolerance Hematologic/Lymphatic: ABSENT: easy bleeding, easy bruising Physical Exam Vital Signs: Temp Pulse Resp BP Pulse Ox 98.2 F 72 15 145/89 H 97 01/04/19 04:02 01/04/19 04:02 01/04/19 04:02 01/04/19 04:02 01/04/19 04:02 Intake & Output 01/02/19 01/03/19 01/04/19 11:59 11:59 11:59 Intake Total 2000 Output Total 425 Balance 1575 Weight 86.183 kg General appearance: PRESENT: cooperative, mild distress, other - Appears older than stated age, chronically ill-appearing but nontoxic Head exam: PRESENT: atraumatic, normocephalic Eye exam: PRESENT: conjunctiva pink, EOMI, PERRLA. ABSENT: scleral icterus Ear exam: PRESENT: normal external ear exam Mouth exam: PRESENT: dry mucosa, neck supple. ABSENT: moist Neck exam: ABSENT: carotid bruit, JVD, lymphadenopathy, thyromegaly Respiratory exam: PRESENT: clear to auscultation edna. ABSENT: rales, rhonchi, wheezes Cardiovascular exam: PRESENT: RRR. ABSENT: diastolic murmur, rubs, systolic murmur Pulses: PRESENT: normal dorsalis pedis pul Vascular exam: PRESENT: normal capillary refill GI/Abdominal exam: PRESENT: normal bowel sounds, soft. ABSENT: distended, guarding, mass, organolmegaly, rebound, tenderness Rectal exam: PRESENT: deferred Extremities exam: PRESENT: full ROM. ABSENT: calf tenderness, clubbing, pedal edema Neurological exam: PRESENT: alert, awake, oriented to person, oriented to place, oriented to time, oriented to situation, CN II-XII grossly intact. ABSENT: motor sensory deficit Psychiatric exam: PRESENT: appropriate affect, normal mood. ABSENT: homicidal ideation, suicidal ideation Skin exam: PRESENT: abrasion, dry, intact, warm. ABSENT: cyanosis, rash Results Laboratory Results: 01/03/19 17:41 01/04/19 01:18 01/03/19 01/03/19 01/03/19 17:41 17:41 17:41 WBC 15.8 H RBC 4.84 Hgb 15.1 Hct 47.4 MCV 98 H MCH 31.3 MCHC 31.9 L RDW 14.7 H Plt Count 223 Seg Neutrophils % Not Reportable VBG pH 7.38 VBG pCO2 42.6 VBG HCO3 24.7 VBG Base Excess -0.5 Sodium 122.6 L Potassium 6.2 H* D Chloride 81 L Carbon Dioxide 27 Anion Gap 15 BUN 75 H Creatinine 3.21 H Est GFR ( Amer) 25 L Glucose 1222 H* Calcium 9.2 Magnesium 2.8 H Total Bilirubin 0.6 AST 68 H Alkaline Phosphatase 296 H Total Protein 7.2 Albumin 3.9 Lipase 534.1 H TSH Urine Color Urine Appearance Urine pH Ur Specific [place] Urine Protein Urine Glucose (UA) Urine Ketones Urine Blood Urine Nitrite Ur Leukocyte Esterase Urine WBC (Auto) Urine RBC (Auto) 01/03/19 01/03/19 01/03/19 17:41 17:41 17:41 WBC RBC Hgb Hct MCV MCH MCHC RDW Plt Count Seg Neutrophils % VBG pH VBG pCO2 VBG HCO3 VBG Base Excess Sodium Potassium Chloride Carbon Dioxide Anion Gap BUN Creatinine Est GFR ( Amer) Glucose Calcium Magnesium Total Bilirubin AST Alkaline Phosphatase Total Protein Albumin Lipase TSH 0.09 L Urine Color STRAW Cancelled Urine Appearance CLEAR Cancelled Urine pH 7.0 Cancelled Ur Specific [place] 1.020 Cancelled Urine Protein 30 H Cancelled Urine Glucose (UA) >=500 H Cancelled Urine Ketones NEGATIVE Cancelled Urine Blood SMALL H Cancelled Urine Nitrite NEGATIVE Cancelled Ur Leukocyte Esterase NEGATIVE Cancelled Urine WBC (Auto) 1 Cancelled Urine RBC (Auto) Cancelled 01/04/19 01:18 WBC RBC Hgb Hct MCV MCH MCHC RDW Plt Count Seg Neutrophils % VBG pH VBG pCO2 VBG HCO3 VBG Base Excess Sodium 133.9 L Potassium 5.6 H Chloride 100 Carbon Dioxide 23 Anion Gap 11 BUN 76 H Creatinine 2.76 H Est GFR ( Amer) 30 L Glucose 614 H* Calcium 8.7 Magnesium Total Bilirubin AST Alkaline Phosphatase Total Protein Albumin Lipase TSH Urine Color Urine Appearance Urine pH Ur Specific [place] Urine Protein Urine Glucose (UA) Urine Ketones Urine Blood Urine Nitrite Ur Leukocyte Esterase Urine WBC (Auto) Urine RBC (Auto) Impressions: Chest X-Ray 01/03/19 18:04 IMPRESSION: Mild left basilar subsegmental atelectasis. No consolidation or pleural effusion. Assessment and Plan - Diagnosis (1) Hyperglycemia Is this a current diagnosis for this admission?: Yes Plan: Likely multifactorial secondary to steroid use, no acidosis, IV fluid hydration, insulin, follow-up A1c and serial chemistries reduce steroids (2) Abnormal EKG Is this a current diagnosis for this admission?: Yes Plan: Peak T waves secondary to hyperkalemia. Insulin, albuterol, calcium gluconate initiated. Follow-up chemistry for correction of hyperkalemia. (3) Hyponatremia Is this a current diagnosis for this admission?: Yes Plan: Pseudohyponatremia secondary to hyperglycemia. Follow-up chemistry (4) History of recent steroid use Is this a current diagnosis for this admission?: Yes Plan: Titrate prednisone from 60 mg to 30 mg daily (5) Hyperkalemia Is this a current diagnosis for this admission?: Yes Plan: Normal saline, insulin, calcium, follow-up chemistry (6) Chronic kidney disease, stage III (moderate) Is this a current diagnosis for this admission?: Yes Plan: Exacerbation secondary to severe hyperglycemia and glucosuria dehydration. Hydration, avoid nephrotoxic meds and doses follow-up chemistry - Time Time Spent with patient: 35 or more minutes - Inpatient Certification Medical Necessity: Need Close Monitoring Due to Risk of Patient Decompensation
[2019-01-04 06:59] LABS: ABSOLUTE BASOPHILS # (AUTO) 0.1 10^3/uL (0.0-0.2); ABSOLUTE LYMPHOCYTES (AUTO) 2.1 10^3/uL (0.5-4.7); ABSOLUTE MONOCYTES (AUTO) 1.2 10^3/uL (0.1-1.4); ABSOLUTE NEUT (AUTO) 14.8 10^3/uL (1.7-8.2); BASOPHILS % (AUTO) 0.3 % (0-2); EOSINOPHILS % (AUTO) 0.2 % (0-6); HEMATOCRIT 43.2 % (37.9-51.0); HEMOGLOBIN 14.3 g/dL (13.5-17.0); LYMPHOCYTES % (AUTO) 11.5 % (13-45); MEAN CORPUSCULAR HEMOGLOBIN 30.4 pg (27.0-33.4); MEAN CORPUSCULAR HGB CONC 33.1 g/dL (32.0-36.0); MONOCYTES % (AUTO) 6.4 % (3-13); PLATELET COUNT 190 10^3/uL (150-450); RED CELL DISTRIBUTION WIDTH 14.4 % (11.5-14.0); SEGMENTED NEUTROPHILS % (AUTO) 81.6 % (42-78); TOTAL CELLS COUNTED % (AUTO) 100 %; WHITE BLOOD COUNT 18.1 10^3/uL (4.0-10.5)
[2019-01-04 07:03] LABS: MEAN CORPUSCULAR VOLUME 92 fl (80-97)
--- NOTE | 2019-01-04 07:08 | PDOC CONSULTATION ---
Consultation Consult Date: 01/04/19 Provider Consulted: FARNAZ HOOPER Consult reason:: r hip pain History of Present Illness Admission Date/PCP: 01/03/19 20:10 FARNAZ HOOPER MD History of Present Illness: KELLY MATHEWS is a 53 year old male 53-year-old black male with right hip pain and effusion status post an unproductive office-based aspiration of the hip effusion. Patient elevated sedimentation rate is 69 which is subsequently decreased to 37. Past Medical History Cardiac Medical History: Reports: Coronary Artery Disease - [address] 2 MIs in 2006 and 2013, Myocardial Infarction - stents, Hyperlipidema, Hypertension Renal/ Medical History: Reports: Chronic Kidney Disease Psychiatric Medical History: Denies: Depression Infectious Medical History: Reports: HIV Past Surgical History Past Surgical History: Reports: Cardiac Catheterization - with stents, Coronary Stent - x 8, Orthopedic Surgery - Back surgery secondary to osteomyelitis Social History Information Source: Patient, DrMaximiliano Thomas, [facility] Records Smoking Status: Current Every Day Smoker Frequency of Alcohol Use: None Hx Recreational Drug Use: Yes - Opioids Drugs: Heroin Hx Prescription Drug Abuse: No - Advance Directive Resuscitation Status: Full Code Family History Family History: Reviewed & Not Pertinent, DM Parental Family History Reviewed: No Children Family History Reviewed: No Sibling(s) Family History Reviewed.: No Medication/Allergy Home Medications: Atorvastatin Calcium [Lipitor 40 mg Tablet] 40 mg PO DAILY 02/03/18 Dolutegravir/Rilpivirine [Juluca 50-25 mg Tablet] 1 tab PO DAILY 02/03/18 Metoprolol Tartrate [Lopressor 50 mg Tablet] 50 mg PO Q12 02/03/18 Nitroglycerin [Nitrostat] 0.4 mg SL Q5MP PRN 02/03/18 Ranitidine HCl [Zantac 150 mg Tablet] 150 mg PO BID 02/03/18 Allopurinol [Zyloprim 100 mg Tablet] 100 mg PO DAILY 01/03/19 Amlodipine Besylate [Norvasc 5 mg Tablet] 5 mg PO DAILY 01/03/19 Aspirin [Ecotrin 81 mg EC Tablet] 81 mg PO DAILY 01/03/19 Clonidine HCl [Catapres 0.1 mg Tablet] 0.1 mg PO Q12 01/03/19 Furosemide [Lasix 20 mg Tablet] 20 mg PO DAILY 01/03/19 Meloxicam [Mobic] 7.5 mg PO BID 01/03/19 Allergies/Adverse Reactions: No Known Allergies Allergy (Verified 01/03/19 16:55) Review of Systems All systems: as per PMH Physical Exam Vital Signs: Temp Pulse Resp BP Pulse Ox 36.8 C 72 15 145/89 H 97 01/04/19 04:02 01/04/19 04:02 01/04/19 04:02 01/04/19 04:02 01/04/19 04:02 Intake & Output 01/03/19 01/04/19 01/05/19 06:59 06:59 06:59 Intake Total 2000 Output Total 425 Balance 1575 Weight 86.183 kg Physical Exam: Middle-aged black male lying in bed in a left lateral decubitus position with his right hand overlying his anterolateral right hip General appearance: PRESENT: mild distress Head exam: PRESENT: normocephalic Respiratory exam: PRESENT: unlabored Cardiovascular exam: PRESENT: RRR Pulses: PRESENT: +1 pedal pulses bilateral GI/Abdominal exam: PRESENT: soft Rectal exam: PRESENT: deferred Extremities exam: PRESENT: other - Right hip passive range of motion is painful. Leg lengths are equal. Distal neurovascular examination is intact. Neurological exam: PRESENT: alert, awake, oriented to person, oriented to place, oriented to time, oriented to situation. ABSENT: motor sensory deficit Psychiatric exam: PRESENT: appropriate affect, normal mood. ABSENT: homicidal ideation, suicidal ideation Results Laboratory Results: 01/04/19 06:30 01/04/19 01:18 01/03/19 01/03/19 01/03/19 17:41 17:41 17:41 WBC 15.8 H RBC 4.84 Hgb 15.1 Hct 47.4 MCV 98 H MCH 31.3 MCHC 31.9 L RDW 14.7 H Plt Count 223 Seg Neutrophils % Not Reportable VBG pH 7.38 VBG pCO2 42.6 VBG HCO3 24.7 VBG Base Excess -0.5 Sodium 122.6 L Potassium 6.2 H* D Chloride 81 L Carbon Dioxide 27 Anion Gap 15 BUN 75 H Creatinine 3.21 H Est GFR ( Amer) 25 L Glucose 1222 H* Calcium 9.2 Magnesium 2.8 H Total Bilirubin 0.6 AST 68 H Alkaline Phosphatase 296 H Total Protein 7.2 Albumin 3.9 Lipase 534.1 H TSH Urine Color Urine Appearance Urine pH Ur Specific [place] Urine Protein Urine Glucose (UA) Urine Ketones Urine Blood Urine Nitrite Ur Leukocyte Esterase Urine WBC (Auto) Urine RBC (Auto) 01/03/19 01/03/19 01/03/19 17:41 17:41 17:41 WBC RBC Hgb Hct MCV MCH MCHC RDW Plt Count Seg Neutrophils % VBG pH VBG pCO2 VBG HCO3 VBG Base Excess Sodium Potassium Chloride Carbon Dioxide Anion Gap BUN Creatinine Est GFR ( Amer) Glucose Calcium Magnesium Total Bilirubin AST Alkaline Phosphatase Total Protein Albumin Lipase TSH 0.09 L Urine Color STRAW Cancelled Urine Appearance CLEAR Cancelled Urine pH 7.0 Cancelled Ur Specific [place] 1.020 Cancelled Urine Protein 30 H Cancelled Urine Glucose (UA) >=500 H Cancelled Urine Ketones NEGATIVE Cancelled Urine Blood SMALL H Cancelled Urine Nitrite NEGATIVE Cancelled Ur Leukocyte Esterase NEGATIVE Cancelled Urine WBC (Auto) 1 Cancelled Urine RBC (Auto) Cancelled 01/04/19 01/04/19 01:18 06:30 WBC 18.1 H RBC 4.70 Hgb 14.3 Hct 43.2 MCV 92 D MCH 30.4 MCHC 33.1 RDW 14.4 H Plt Count 190 Seg Neutrophils % 81.6 H VBG pH VBG pCO2 VBG HCO3 VBG Base Excess Sodium 133.9 L Potassium 5.6 H Chloride 100 Carbon Dioxide 23 Anion Gap 11 BUN 76 H Creatinine 2.76 H Est GFR ( Amer) 30 L Glucose 614 H* Calcium 8.7 Magnesium Total Bilirubin AST Alkaline Phosphatase Total Protein Albumin Lipase TSH Urine Color Urine Appearance Urine pH Ur Specific [place] Urine Protein Urine Glucose (UA) Urine Ketones Urine Blood Urine Nitrite Ur Leukocyte Esterase Urine WBC (Auto) Urine RBC (Auto) Impressions: Chest X-Ray 01/03/19 18:04 IMPRESSION: Mild left basilar subsegmental atelectasis. No consolidation or pleural effusion. Status: Imported from PACS Assessment & Plan - Diagnosis (1) Right hip joint effusion Is this a current diagnosis for this admission?: Yes Plan: 53-year-old black male with immunocompromise and ongoing right hip pain and effusion of uncertain etiology. I requested a radiology guided aspiration of the joint. - Time Time Spent: 50 to 70 Minutes Anticipated discharge: Other Within: Other
--- NOTE | 2019-01-04 07:55 | EKG REPORT ---
SEVERITY:- ABNORMAL ECG - SINUS RHYTHM PROBABLE LEFT ATRIAL ABNORMALITY INFERIOR INFARCT, AGE INDETERMINATE LATERAL LEADS ARE ALSO INVOLVED : Confirmed by: Noel Willams MD 04-Jan-2019 07:54:41
[2019-01-04] MEDS: IPRATROPIUM/ALBUTEROL 0.5-2.5 MG/3 ML AMPUL NEB SCH ×2 (08:51→20:48)
--- NOTE | 2019-01-04 10:05 | RADIOLOGY REPORT (SQ) ---
EXAM DESCRIPTION: FLUORO/NEEDLE PLACEMENT; INJECT/ASPIR HIP/SHLDR/KNEE COMPLETED DATE/TIME: 01/04/2019 9:34 am REASON FOR STUDY: aspiration of right hip/PAIN IN RIGHT HIP; PAIN IN RIGHT HIP COMPARISON: MRI dated 12/17/2018 FLUOROSCOPY TIME: 0.2 minutes 1 images saved to PACS. LIMITATIONS: None. PROCEDURE: SITE OF ASPIRATION: Right hip Using local anesthesia and sterile technique with fluoroscopic guidance, the needle was advanced into the joint. Saline was instilled. Approximately 7 mL of yellow tinged fluid was removed. There wer e no complications. Samples were sent to pathology for evaluation. IMPRESSION: Successful right hip aspiration as described. COMMENT: Patient medication list reviewed: Yes- Quality ID# [id number]:Eligible professional attests to doc umenting in the medical record they obtained, updated, or reviewed the patient's current medications. . Quality ID 145: Final reports for procedures using fluoroscopy that document radiation exposure wei ruthy, or exposure time and number of fluorographic images (if radiation exposure indices are not avail able) TECHNICAL DOCUMENTATION: JOB ID: [id number] [employer]- All Rights Reserved Reading location - IP/workstation name: [email or web address]
--- NOTE | 2019-01-04 10:05 | RADIOLOGY REPORT (SQ) ---
EXAM DESCRIPTION: FLUORO/NEEDLE PLACEMENT; INJECT/ASPIR HIP/SHLDR/KNEE COMPLETED DATE/TIME: 01/04/2019 9:34 am REASON FOR STUDY: aspiration of right hip/PAIN IN RIGHT HIP; PAIN IN RIGHT HIP COMPARISON: MRI dated 12/17/2018 FLUOROSCOPY TIME: 0.2 minutes 1 images saved to PACS. LIMITATIONS: None. PROCEDURE: SITE OF ASPIRATION: Right hip Using local anesthesia and sterile technique with fluoroscopic guidance, the needle was advanced into the joint. Saline was instilled. Approximately 7 mL of yellow tinged fluid was removed. There wer e no complications. Samples were sent to pathology for evaluation. IMPRESSION: Successful right hip aspiration as described. COMMENT: Patient medication list reviewed: Yes- Quality ID# [id number]:Eligible professional attests to doc umenting in the medical record they obtained, updated, or reviewed the patient's current medications. . Quality ID 145: Final reports for procedures using fluoroscopy that document radiation exposure wei ruthy, or exposure time and number of fluorographic images (if radiation exposure indices are not avail able) TECHNICAL DOCUMENTATION: JOB ID: [id number] [employer]- All Rights Reserved Reading location - IP/workstation name: [email or web address]
[2019-01-04] MEDS: PREDNISONE 20 MG TABLET PO SCH (10:13)
[2019-01-04] MEDS: DOCUSATE SODIUM 100 MG CAPSULE PO SCH ×2 (10:14→18:03)
--- NOTE | 2019-01-04 10:18 | Progress Note Acknowledgement ---
Progress Note Acknowledgement Progess Note Acknowledgement: I, the undersigned member of the medical staff with appropriate privileges and with supervisory authority over [ PAC ], a dependent practice allied health professional, acknowledge that I have reviewed the progress notes entered on this patient, and in my professional judgment believe that the assessment made and/or any care evidenced was appropriate
[2019-01-04] MEDS: OXYCODONE-ACETAMINOPHEN 5-325 MG TABLET PO PRN ×2 (10:25→18:07)
--- NOTE | 2019-01-04 10:29 | PDOC PROGRESS REPORT ---
Subjective Progress Note for:: 01/04/19 Subjective:: Patient was admitted to hospital yesterday for hyperglycemia and hyperkalemia, and possible abscess of the right hip. Patient was admitted glucose was over 1200, patient had been on prednisone 60 mg a day for the last 2 weeks prior to admission Reason For Visit: HYPERGLYCEMIA, HYPERKALEMIA Physical Exam Vital Signs: Temp Pulse Resp BP Pulse Ox 97.5 F 70 16 150/92 H 97 01/04/19 08:18 01/04/19 08:18 01/04/19 08:18 01/04/19 08:18 01/04/19 08:18 Intake & Output 01/03/19 01/04/19 01/05/19 06:59 06:59 06:59 Intake Total 2000 Output Total 800 Balance 1200 Weight 81.8 kg General appearance: PRESENT: no acute distress Respiratory exam: PRESENT: clear to auscultation edna. ABSENT: rales, rhonchi, wheezes Cardiovascular exam: PRESENT: RRR. ABSENT: diastolic murmur, rubs, systolic murmur Neurological exam: PRESENT: alert, awake, oriented to person, oriented to place, oriented to time, oriented to situation, CN II-XII grossly intact. ABSENT: motor sensory deficit Psychiatric exam: PRESENT: agitated, anxious, other - She states that he does not want to have pain when he has his hip aspiration performed. States when it was done in the orthopedic office that it was very painful Results Laboratory Results: 01/04/19 06:30 01/04/19 01:18 01/03/19 01/03/19 01/03/19 17:41 17:41 17:41 WBC 15.8 H RBC 4.84 Hgb 15.1 Hct 47.4 MCV 98 H MCH 31.3 MCHC 31.9 L RDW 14.7 H Plt Count 223 Seg Neutrophils % Not Reportable VBG pH 7.38 VBG pCO2 42.6 VBG HCO3 24.7 VBG Base Excess -0.5 Sodium 122.6 L Potassium 6.2 H* D Chloride 81 L Carbon Dioxide 27 Anion Gap 15 BUN 75 H Creatinine 3.21 H Est GFR ( Amer) 25 L Glucose 1222 H* Calcium 9.2 Magnesium 2.8 H Total Bilirubin 0.6 AST 68 H Alkaline Phosphatase 296 H Total Protein 7.2 Albumin 3.9 Lipase 534.1 H TSH Urine Color Urine Appearance Urine pH Ur Specific [place] Urine Protein Urine Glucose (UA) Urine Ketones Urine Blood Urine Nitrite Ur Leukocyte Esterase Urine WBC (Auto) Urine RBC (Auto) 01/03/19 01/03/19 01/03/19 17:41 17:41 17:41 WBC RBC Hgb Hct MCV MCH MCHC RDW Plt Count Seg Neutrophils % VBG pH VBG pCO2 VBG HCO3 VBG Base Excess Sodium Potassium Chloride Carbon Dioxide Anion Gap BUN Creatinine Est GFR ( Amer) Glucose Calcium Magnesium Total Bilirubin AST Alkaline Phosphatase Total Protein Albumin Lipase TSH 0.09 L Urine Color STRAW Cancelled Urine Appearance CLEAR Cancelled Urine pH 7.0 Cancelled Ur Specific [place] 1.020 Cancelled Urine Protein 30 H Cancelled Urine Glucose (UA) >=500 H Cancelled Urine Ketones NEGATIVE Cancelled Urine Blood SMALL H Cancelled Urine Nitrite NEGATIVE Cancelled Ur Leukocyte Esterase NEGATIVE Cancelled Urine WBC (Auto) 1 Cancelled Urine RBC (Auto) Cancelled 01/04/19 01/04/19 01:18 06:30 WBC 18.1 H RBC 4.70 Hgb 14.3 Hct 43.2 MCV 92 D MCH 30.4 MCHC 33.1 RDW 14.4 H Plt Count 190 Seg Neutrophils % 81.6 H VBG pH VBG pCO2 VBG HCO3 VBG Base Excess Sodium 133.9 L Potassium 5.6 H Chloride 100 Carbon Dioxide 23 Anion Gap 11 BUN 76 H Creatinine 2.76 H Est GFR ( Amer) 30 L Glucose 614 H* Calcium 8.7 Magnesium Total Bilirubin AST Alkaline Phosphatase Total Protein Albumin Lipase TSH Urine Color Urine Appearance Urine pH Ur Specific [place] Urine Protein Urine Glucose (UA) Urine Ketones Urine Blood Urine Nitrite Ur Leukocyte Esterase Urine WBC (Auto) Urine RBC (Auto) Impressions: Chest X-Ray 01/03/19 18:04 IMPRESSION: Mild left basilar subsegmental atelectasis. No consolidation or pleural effusion. Guidance Fluoroscopy 01/04/19 00:00 IMPRESSION: Successful right hip aspiration as described. Hip Aspiration/Injection 01/04/19 00:00 IMPRESSION: Successful right hip aspiration as described. Assessment and Plan - Diagnosis (1) History of recent steroid use Is this a current diagnosis for this admission?: Yes Plan: Titrate prednisone from 60 mg to 30 mg daily 01/04/2019 patient is currently taking prednisone 30 mg daily. At this point am not exactly sure why he was taking the prednisone. (2) Hyperglycemia Is this a current diagnosis for this admission?: Yes Plan: Likely multifactorial secondary to steroid use, no acidosis, IV fluid hydration, insulin, follow-up A1c and serial chemistries reduce steroids On admission patient's glucose was greater than 1200, early this morning it is gone down to 614. Fingerstick glucose last checked this morning was 427 and hemoglobin A1c on admission was 8.0. Patient is currently getting normal saline at 250 mL's per hour (3) Right hip joint effusion Is this a current diagnosis for this admission?: Yes Plan: 01/04/2019 recent is going downstairs to radiology for a aspiration of the right hip on admission white count was 15,800 this morning it was 18,100 (4) Chronic kidney disease, stage III (moderate) Is this a current diagnosis for this admission?: Yes Plan: Exacerbation secondary to severe hyperglycemia and glucosuria dehydration. Hydration, avoid nephrotoxic meds and doses follow-up chemistry 01/04/2019 currently on normal saline 250/h. Electrolytes this morning showed the potassium still slightly elevated at 5.6, however on admission it was 6.2 sodium 133 76 creatinine 2.76. Creatinine slightly improved on admission it was 3.21 (5) HIV (human immunodeficiency virus infection) Is this a current diagnosis for this admission?: Yes Plan: 01/04/2019 will check a CD4 count - Time Time Spent with patient: 35 or more minutes
[2019-01-04 10:44] LABS: FLUID TYPE SYNOVIAL
[2019-01-04 10:45] LABS: FLUID APPEARANCE CLOUDY; FLUID COLOR STRAW; FLUID VISCOSITY LIQUID
[2019-01-04] MEDS: FAMOTIDINE 20 MG TABLET PO SCH (21:22)
[2019-01-05] MEDS: ACETAMINOPHEN 325 MG TABLET PO PRN ×2 (00:07→20:01)
[2019-01-05] MEDS: INSULIN LISPRO 100 UNIT/ML 3 ML VIAL SUBCUT SCH ×4 (00:08→21:51)
[2019-01-05] MEDS: OXYCODONE-ACETAMINOPHEN 5-325 MG TABLET PO PRN ×3 (00:08→20:01)
[2019-01-05] MEDS: HYDRALAZINE HCL INJ/PF 20 MG/1 ML SDV IV PRN (03:32)
[2019-01-05] MEDS: HEPARIN SOD (PORCINE) 5,000 UNIT/ML 1 ML VIAL SUBCUT SCH ×3 (05:39→21:53)
[2019-01-05] MEDS: IPRATROPIUM/ALBUTEROL 0.5-2.5 MG/3 ML AMPUL NEB SCH ×2 (08:07→20:43)
[2019-01-05 08:35] LABS: ANION GAP 10 (5-19); BLOOD UREA NITROGEN 70 mg/dL (7-20); CALCIUM 9.1 mg/dL (8.4-10.2); CARBON DIOXIDE 25 mmol/L (22-30); CHLORIDE 108 mmol/L (98-107); GLUCOSE 181 mg/dL (75-110); POTASSIUM 4.5 mmol/L (3.6-5.0)
[2019-01-05] MEDS: PREDNISONE 20 MG TABLET PO SCH (10:28)
[2019-01-05] MEDS: FAMOTIDINE 20 MG TABLET PO SCH ×2 (10:28→21:49)
[2019-01-05] MEDS: DOCUSATE SODIUM 100 MG CAPSULE PO SCH ×2 (10:28→16:59)
[2019-01-05] MEDS ORDERED: PREDNISONE 20 MG TABLET PO ONE (10:34)
--- NOTE | 2019-01-05 10:52 | PDOC PROGRESS REPORT ---
Subjective Progress Note for:: 01/05/19 Subjective:: Patient was admitted to hospital yesterday for hyperglycemia and hyperkalemia, and possible abscess of the right hip. Patient was admitted glucose was over 1200, patient had been on prednisone 60 mg a day for the last 2 weeks prior to admission 01/05/2019 patient was admitted for metabolic problems concerning hyperglycemia and hyperkalemia. Patient's hyperglycemia was probably worsened by his steroids patient did have an A1c of 8 on admission so his blood sugars have been elevated for a while. Patient has what appears to be a abscess of the right hip as well as HIV, plus a significant cardiac history. There is a possibility that patient will need an I&D procedure of the right hip and I was asked by anesthesia about what his risk factors would be treated patient has had a significant cardiac history and in talking to cardiology here like go to [facility] if patient is to require any surgery. Certainly patient's glucose and potassium are well controlled now Reason For Visit: HYPERGLYCEMIA, HYPERKALEMIA Physical Exam Vital Signs: Temp Pulse Resp BP Pulse Ox 98.6 F 80 14 134/84 H 96 01/05/19 07:55 01/05/19 08:09 01/05/19 08:09 01/05/19 07:55 01/05/19 08:09 Intake & Output 01/04/19 01/05/19 01/06/19 06:59 06:59 06:59 Intake Total 3000 2168 Output Total 800 Balance 2200 2168 Weight 81.8 kg 81.9 kg General appearance: PRESENT: no acute distress Respiratory exam: PRESENT: clear to auscultation edna. ABSENT: rales, rhonchi, wheezes Cardiovascular exam: PRESENT: RRR. ABSENT: diastolic murmur, rubs, systolic murmur Extremities exam: PRESENT: other - Deferred to Ortho Neurological exam: PRESENT: alert, awake, oriented to person, oriented to place, oriented to time, oriented to situation, CN II-XII grossly intact. ABSENT: motor sensory deficit Psychiatric exam: PRESENT: appropriate affect, normal mood. ABSENT: homicidal ideation, suicidal ideation Results Laboratory Results: 01/04/19 06:30 01/05/19 07:45 01/04/19 01/05/19 09:21 07:45 Sodium 143.0 Potassium 4.5 Chloride 108 H Carbon Dioxide 25 Anion Gap 10 BUN 70 H Creatinine 2.66 H Est GFR ( Amer) 31 L Glucose 181 H Calcium 9.1 Lipase 429.4 H Fluid Type SYNOVIAL Fluid Source Fluid Color STRAW Fluid Appearance CLOUDY Fluid Viscosity LIQUID Fluid WBC 8433 Fluid RBC 288 Impressions: Chest X-Ray 01/03/19 18:04 IMPRESSION: Mild left basilar subsegmental atelectasis. No consolidation or pleural effusion. Guidance Fluoroscopy 01/04/19 00:00 IMPRESSION: Successful right hip aspiration as described. Hip Aspiration/Injection 01/04/19 00:00 IMPRESSION: Successful right hip aspiration as described. Assessment and Plan - Diagnosis (1) History of recent steroid use Is this a current diagnosis for this admission?: Yes Plan: Titrate prednisone from 60 mg to 30 mg daily 01/04/2019 patient is currently taking prednisone 30 mg daily. At this point am not exactly sure why he was taking the prednisone. 01/05/2019 currently weaning the patient on the steroids he is now at prednisone 20 mg a day (2) Hyperglycemia Is this a current diagnosis for this admission?: Yes Plan: Likely multifactorial secondary to steroid use, no acidosis, IV fluid hydration, insulin, follow-up A1c and serial chemistries reduce steroids On admission patient's glucose was greater than 1200, early this morning it is gone down to 614. Fingerstick glucose last checked this morning was 427 and hemoglobin A1c on admission was 8.0. Patient is currently getting normal saline at 250 mL's per hour 01/05/2019 patient's blood sugars are now under much better control on a sliding scale glucose today is 181. Due to patient's admission hemoglobin A1c of 8 would suspect that his hyperglycemia predates his steroid usage, although certainly this is a contributing factor. Start patient on low-dose of Lantus 5 units nightly (3) Right hip joint effusion Is this a current diagnosis for this admission?: Yes Plan: 01/04/2019 recent is going downstairs to radiology for a aspiration of the right hip on admission white count was 15,800 this morning it was 18,100 01/05/2019 preliminary Gram stain shows no bacteria, however the joint aspiration did reveal a large number of WBCs and was cloudy in appearance . Patient remains afebrile (4) Chronic kidney disease, stage III (moderate) Is this a current diagnosis for this admission?: Yes Plan: Exacerbation secondary to severe hyperglycemia and glucosuria dehydration. Hydration, avoid nephrotoxic meds and doses follow-up chemistry 01/04/2019 currently on normal saline 250/h. Electrolytes this morning showed the potassium still slightly elevated at 5.6, however on admission it was 6.2 sodium 133 76 creatinine 2.76. Creatinine slightly improved on admission it was 3.21 01/05/2019 testing this morning is down to 4.5 BUN 70 creatinine 2.66. Continue IV fluids (5) HIV (human immunodeficiency virus infection) Is this a current diagnosis for this admission?: Yes Plan: 01/04/2019 will check a CD4 count 01/05/2019 waiting on CD4 cell count (6) Coronary artery disease Qualifiers: Coronary Disease-Associated Artery/Lesion type: [place] artery [place] vs. transplanted heart: [place] heart Associated angina: without angina Qualified Code(s): I25.10 - Atherosclerotic heart disease of [place] coronary artery without angina pectoris Is this a current diagnosis for this admission?: Yes Plan: Patient has had 8 cardiac stents placed. Last one was done at [facility] in 2012. She has stated that if he has to have anything done from a cardiac standpoint or involving cardiac he would like to go back to [facility] - Time Time Spent with patient: 35 or more minutes - Start patient on low-dose of Lantus 5 units nightly, resume home meds.
[2019-01-05] MEDS: CLONIDINE HCL 0.1 MG TABLET PO SCH ×2 (11:06→21:50)
[2019-01-05] MEDS: AMLODIPINE BESYLATE 5 MG TABLET PO SCH (11:06)
[2019-01-05 14:37] LABS: % CD 4 POS LYMPH 23.8 % (30.8-58.5); % CD 8 POS LYMPH 37.2 % (12.0-35.5); ABSOLUTE CD 4 HELPER 428 /uL (359-1519); ABSOLUTE CD 8 SUPPRESSOR 670 /uL (109-897); CD BASOPHILS 0 % (Not Estab.); CD EOSINOPHILS 0 % (Not Estab.); CD MONOCYTES 4 % (Not Estab.); CD NEUTROPHILS 85 % (Not Estab.); CD4/CD8 RATIO 0.64 (0.92-3.72); EOSINOPHILS (ABSOLUTE) 0.1 x10E3/uL (0.0-0.4); HEMOGLOBIN 14.6 g/dL (13.0-17.7); IMMATURE GRANULOCYTES 0 % (Not Estab.); LYMPHS(ABSOLUTE) 1.8 x10E3/uL (0.7-3.1); MCHC 34.8 g/dL (31.5-35.7); MCV 89 fL (79-97); PLATELETS 200 x10E3/uL (150-450); RBC 4.69 x10E6/uL (4.14-5.80); RDW 13.9 % (12.3-15.4); WBC 15.7 x10E3/uL (3.4-10.8)
--- NOTE | 2019-01-05 15:44 | Progress Note ---
Provider Note Provider Note: I have spoken with orthopedic surgery by phone today we have discussed the patient in detail concerning the procedure that is needed concerning the right hip. Due to patient's strong cardiac history and potential risk for anesthesia patient will need to be transferred to Medical Center for multidisciplinary approach Patient was last seen at [facility] in 2012 try to transfer him to that facility tomorrow, patient has been briefed and is in agreement with this decision
[2019-01-05] MEDS ORDERED: INSULIN LISPRO 100 UNIT/ML 3 ML VIAL SUBCUT ONE (17:00)
[2019-01-05] MEDS: METOPROLOL TARTRATE 50 MG TABLET PO SCH (21:50)
[2019-01-05] MEDS: INSULIN GLARGINE,HUM.REC.ANLOG 1,000 UNIT/10 ML VIAL SUBCUT SCH (21:50)
[2019-01-05] MEDS: ATORVASTATIN CALCIUM 40 MG TABLET PO SCH (21:50)
[2019-01-06] MEDS: HEPARIN SOD (PORCINE) 5,000 UNIT/ML 1 ML VIAL SUBCUT SCH ×3 (05:02→21:00)
--- NOTE | 2019-01-06 06:36 | PDOC PROGRESS REPORT ---
Subjective Progress Note for:: 01/06/19 Reason For Visit: HYPERGLYCEMIA, HYPERKALEMIA 53-year-old immunosuppressive black male with multiple medical comorbidities that are uncontrolled and a gram-negative zenia septic arthritis of the right hip. Patient's undergone medical evaluation and attempted optimization of his med ical comorbidities. The mucker operator feels that in light of his complicated past cardiac history that he would be best served by transfer back to the facility where he has been recently treated with cardiac stents. Physical Exam Vital Signs: Temp Pulse Resp BP Pulse Ox 36.9 C 75 19 124/79 100 01/06/19 04:00 01/06/19 04:00 01/06/19 04:00 01/06/19 04:00 01/06/19 04:00 Intake & Output 01/04/19 01/05/19 01/06/19 06:59 06:59 06:59 Intake Total 3000 2168 2440 Output Total 800 Balance 2200 2168 2440 Weight 81.8 kg 81.9 kg 82.1 kg Physical Exam: Middle-aged black male in significant distress from his right hip Head exam: PRESENT: normocephalic Respiratory exam: PRESENT: unlabored Cardiovascular exam: PRESENT: RRR Musculoskeletal exam: PRESENT: other - Passive range of motion of the right hip is painful. Leg lengths are equal. Distal neurovascular examination is intact. Results Laboratory Results: 01/04/19 06:30 01/05/19 07:45 01/05/19 07:45 Sodium 143.0 Potassium 4.5 Chloride 108 H Carbon Dioxide 25 Anion Gap 10 BUN 70 H Creatinine 2.66 H Est GFR ( Amer) 31 L Glucose 181 H Calcium 9.1 Lipase 429.4 H Impressions: Chest X-Ray 01/03/19 18:04 IMPRESSION: Mild left basilar subsegmental atelectasis. No consolidation or pleural effusion. Guidance Fluoroscopy 01/04/19 00:00 IMPRESSION: Successful right hip aspiration as described. Hip Aspiration/Injection 01/04/19 00:00 IMPRESSION: Successful right hip aspiration as described. Status: Imported from PACS Assessment & Plan - Diagnosis (1) Right hip joint effusion Is this a current diagnosis for this admission?: Yes Plan: 33-year-old black male with a right hip pain, right hip effusion, and now a documented gram-negative zenia right hip septicemia. Patient would best served with an I&D of the hip as well as ongoing antibiotics. - Time Time Spent with patient: 15-24 minutes Anticipated discharge: Tertiary Hospital Disposition: Following treatment in [place], the patient is welcome to return to postoperative care and [facility] for surgery.
[2019-01-06] MEDS: INSULIN LISPRO 100 UNIT/ML 3 ML VIAL SUBCUT SCH ×4 (08:01→22:10)
[2019-01-06] MEDS: IPRATROPIUM/ALBUTEROL 0.5-2.5 MG/3 ML AMPUL NEB SCH ×2 (08:48→20:31)
[2019-01-06] MEDS: DOCUSATE SODIUM 100 MG CAPSULE PO SCH ×2 (09:05→17:08)
[2019-01-06] MEDS: FAMOTIDINE 20 MG TABLET PO SCH ×2 (09:06→21:00)
[2019-01-06] MEDS: METOPROLOL TARTRATE 50 MG TABLET PO SCH ×2 (09:06→21:00)
[2019-01-06] MEDS: CLONIDINE HCL 0.1 MG TABLET PO SCH ×2 (09:06→21:00)
[2019-01-06] MEDS: AMLODIPINE BESYLATE 5 MG TABLET PO SCH (09:06)
--- NOTE | 2019-01-06 09:34 | PDOC TRANSFER SUMMARY ---
General Admission Date/PCP: 01/03/19 20:10 RAFIQ RODRIGUEZ MD Resuscitation Status: Full Code - Transfer Diagnosis (1) History of recent steroid use Is this a current diagnosis for this admission?: Yes Diagnosis Summary: Patient was portably on his own 60 mg daily for the last 2 weeks. There is no mention of why the patient was on the steroids. (2) Hyperglycemia Is this a current diagnosis for this admission?: Yes Diagnosis Summary: Patient's admitting blood sugar was 1222. Patient's admitting hemoglobin A1c is 8, according to the patient he is never been treated for diabetes before. (3) Right hip joint effusion Is this a current diagnosis for this admission?: Yes Diagnosis Summary: Orthopedic was consulted on 01/04/2019 and they noted patient had had a previous unproductive office-based aspiration of a hip effusion they also note that previously his sed rate was 69 but has since come down to 37 On 01/04/2019 patient went to the radiology department where a successful right hip aspiration was performed the fluid was found to be cloudy with 8433 white cells 288 red cells. 98 neutrophils 1 lymphocyte and 1 monocyte. On 917 Gram stain came back showing 4+ polys 3+ RBCs and rare gram-negative rods. Fluid culture preliminary came back 1+ growth of gram-negative rods. At this point patient is on no antibiotics (4) Chronic kidney disease, stage III (moderate) Is this a current diagnosis for this admission?: Yes Diagnosis Summary: On admission patient's sodium was 133 potassium 5.6 BUN is 76 creatinine 2.76 GFR of 30 Yesterday sodium was sodium 143 potassium 4.5 BUN is 70 creatinine 2.66 GFR of 31 (5) HIV (human immunodeficiency virus infection) Is this a current diagnosis for this admission?: Yes Diagnosis Summary: CD4 count was ordered however this is not been performed yet most recent CBC showed a white count 18,100 H&H of 14.3 43.2 ,platelets 190,000 (6) Coronary artery disease Is this a current diagnosis for this admission?: Yes Diagnosis Summary: 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 Patient also reports he sees cardiology in [place] as well - Transfer Medications Home Medications: Atorvastatin Calcium [Lipitor 40 mg Tablet] 40 mg PO DAILY 02/03/18 Dolutegravir/Rilpivirine [Juluca 50-25 mg Tablet] 1 tab PO DAILY 02/03/18 Metoprolol Tartrate [Lopressor 50 mg Tablet] 50 mg PO Q12 02/03/18 Nitroglycerin [Nitrostat] 0.4 mg SL Q5MP PRN 02/03/18 Ranitidine HCl [Zantac 150 mg Tablet] 150 mg PO BID 02/03/18 Allopurinol [Zyloprim 100 mg Tablet] 100 mg PO DAILY 01/03/19 Amlodipine Besylate [Norvasc 5 mg Tablet] 5 mg PO DAILY 01/03/19 Aspirin [Ecotrin 81 mg EC Tablet] 81 mg PO DAILY 01/03/19 Clonidine HCl [Catapres 0.1 mg Tablet] 0.1 mg PO Q12 01/03/19 Furosemide [Lasix 20 mg Tablet] 20 mg PO DAILY 01/03/19 Meloxicam [Mobic] 7.5 mg PO BID 01/03/19 Transfer Medications: Current Medications Acetaminophen (Tylenol 325 Mg Tablet) 650 mg PO Q4HP PRN PRN Reason: FOR PAIN OR TEMP Stop: 02/02/19 19:51 Last Admin: 01/05/19 20:01 Dose: 650 mg Documented by: Al Hydrox/Mg Hydrox/Simethicone (Maalox Plus Susp 30 Udcup) 30 ml PO Q6HP PRN PRN Reason: HEARTBURN Stop: 02/02/19 19:51 Last Admin: 01/04/19 10:18 Dose: 30 ml Documented by: Albuterol/Ipratropium (Duoneb 3 Ml Ampul) 3 ml NEB [id number] PRN PRN Reason: SHORTNESS OF BREATH Stop: 02/02/19 19:51 Albuterol/Ipratropium (Duoneb 3 Ml Ampul) 3 ml NEB RTQ12 ANA Stop: 02/02/19 19:59 Last Admin: 01/06/19 08:48 Dose: 3 ml Documented by: Allopurinol (Zyloprim 100 Mg Tablet) 100 mg PO DAILY ANA Stop: 02/05/19 09:59 Last Admin: 01/06/19 09:05 Dose: 100 mg Documented by: Amlodipine Besylate (Norvasc 5 Mg Tablet) 5 mg PO DAILY ANA Stop: 02/04/19 10:44 Last Admin: 01/06/19 09:06 Dose: 5 mg Documented by: Atorvastatin Calcium (Lipitor 40 Mg Tablet) 40 mg PO QHS ANA Stop: 02/04/19 21:59 Last Admin: 01/05/19 21:50 Dose: 40 mg Documented by: Calcium Chloride (Calcium Chloride 10% Pf/Inj 1000 Mg/10 Ml Sdv) 1,000 mg IV ASDIR PRN PRN Reason: DIZZINESS Stop: 02/02/19 19:50 Clonidine (Catapres 0.1 Mg Tablet) 0.1 mg PO Q12 ANA Stop: 02/04/19 10:29 Last Admin: 01/06/19 09:06 Dose: 0.1 mg Documented by: Dextrose (Dextrose Inj 50% Syringe (25 Gm/50 Ml)) 12.5 gm IV PRN PRN; Protocol PRN Reason: FOR BG 50-69 IN ALERT PATIENT Stop: 02/02/19 19:51 Dextrose (Dextrose Inj 50% Syringe (25 Gm/50 Ml)) 25 gm IV PRN PRN; Protocol PRN Reason: PER PROTOCOL Stop: 02/02/19 19:51 Docusate Sodium (Colace 100 Mg Capsule) 100 mg PO BID ANA Stop: 02/03/19 09:59 Last Admin: 01/06/19 09:05 Dose: 100 mg Documented by: Famotidine (Pepcid 20 Mg Tablet) 20 mg PO Q12 ANA Stop: 02/03/19 21:59 Last Admin: 01/06/19 09:06 Dose: 20 mg Documented by: Furosemide (Lasix 20 Mg Tablet) 20 mg PO DAILY ANA Stop: 02/05/19 09:59 Last Admin: 01/06/19 09:06 Dose: 20 mg Documented by: Glucagon (Glucagen Inj 1 Mg Vial) 1 mg IM PRN PRN; Protocol PRN Reason: Evaluate for BG < 70 Stop: 02/02/19 19:51 Glucose (Glutose 40% Gel 15 Gm Tube) 15 gm PO PRN PRN; Protocol PRN Reason: FOR BG 50-69 IN ALERT PATIENT Stop: 02/02/19 19:51 Glucose (Glutose 40% Gel 15 Gm Tube) 30 gm PO PRN PRN; Protocol PRN Reason: FOR BG < 50 IN ALERT PATIENT Stop: 02/02/19 19:51 Heparin Sodium (Porcine) (Heparin Inj 5,000 Units/Ml 1 Ml Vial) 5,000 unit SUBCUT Q8 [facility] Stop: 02/02/19 21:59 Last Admin: 01/06/19 05:02 Dose: Not Given Documented by: Hydralazine HCl (Apresoline Inj/Pf 20 Mg/1 Ml Sdv) 10 mg IV Q6HP PRN PRN Reason: SBP >160 Stop: 02/02/19 20:59 Last Admin: 01/05/19 03:32 Dose: 10 mg Documented by: Insulin Glargine (Lantus Insulin 100 Unit/1 Ml 10 Ml) 6 unit SUBCUT QHS [facility] Stop: 02/04/19 21:59 Last Admin: 01/05/19 21:50 Dose: 6 unit Documented by: Insulin Human Lispro (Humalog Insulin 100 Unit/1 Ml 3 Ml Vial) 0 - 12 unit SUBCUT ACHS [facility]; Protocol Stop: 02/03/19 00:00 Last Admin: 01/06/19 08:01 Dose: Not Given Documented by: Metoprolol Tartrate (Lopressor 50 Mg Tablet) 50 mg PO Q12 [facility] Stop: 02/04/19 21:59 Last Admin: 01/06/19 09:06 Dose: 50 mg Documented by: Oxycodone/Acetaminophen (Percocet 5-325 Mg Tablet) 1 tab PO Q6HP PRN PRN Reason: PAIN Stop: 01/10/19 23:00 Last Admin: 01/05/19 20:01 Dose: 1 tab Documented by: - Allergies Allergies/Adverse Reactions: No Known Allergies Allergy (Verified 01/03/19 16:55) Hospital Course Hospital Course: She was sent to the emergency room after being called by orthopedic surgery his "blood glucose was high" and evidently patient was being seen by orthopedic surgery and had an MRI scan as an outpatient on 12/17/2018 showing some fluid in the right hip. He had had a attempted joint aspiration in the office but failed. He was put on prednisone 60 mg a day for the last 2 weeks for his right hip Patient states he is never had diabetes in the past in the office his blood sugar was in the 900s when he presented to the emergency room his blood sugar was 1222 While here in the hospital he underwent a joint aspiration with guided fluoroscopy this revealed gram-negative rods. Dr. Dillon wanted to perform a aggressive I&D of the right hip with general anesthesia we were consulted concerning risk of anesthesia, patient's previous cardiac disease. Talked to the powder worker tnt here and he felt that due to the patient's extensive coronary artery disease he should be seen at a Medical Center not only does patient have significant coronary disease he also has HIV now new onset diabetes secondary to the prednisone. Patient has been accepted at [facility] Physical Exam Vital Signs: Temp Pulse Resp BP Pulse Ox 97.7 F 69 16 148/98 H 98 01/06/19 07:57 01/06/19 08:48 01/06/19 08:48 01/06/19 07:57 01/06/19 08:48 Intake & Output 01/05/19 01/06/19 01/07/19 06:59 06:59 06:59 Intake Total 2168 2440 Balance 2168 2440 Weight 81.9 kg 82.1 kg General appearance: PRESENT: mild distress Respiratory exam: PRESENT: clear to auscultation edna. ABSENT: rales, rhonchi, wheezes Cardiovascular exam: PRESENT: RRR. ABSENT: diastolic murmur, rubs, systolic mu rmur Extremities exam: PRESENT: other - Was mild swelling of the right hip with no redness no warmth patient had full range of motion to the right hip on admission Neurological exam: PRESENT: alert, awake, oriented to person, oriented to place, oriented to time, oriented to situation, CN II-XII grossly intact. ABSENT: motor sensory deficit Psychiatric exam: PRESENT: appropriate affect, normal mood, other - She is actually very pleasant and cooperative. ABSENT: homicidal ideation, suicidal ideation Results Laboratory Results: 01/04/19 06:30 01/05/19 07:45 Impressions: Chest X-Ray 01/03/19 18:04 IMPRESSION: Mild left basilar subsegmental atelectasis. No consolidation or pleural effusion. Guidance Fluoroscopy 01/04/19 00:00 IMPRESSION: Successful right hip aspiration as described. Hip Aspiration/Injection 01/04/19 00:00 IMPRESSION: Successful right hip aspiration as described. Plan Time Spent: Greater than 30 Minutes - Patient is being transferred to [facility] for admission by the hospitalist with consultation by orthopedic surgery patient has been accepted by Maxi Fox PA-C. Patient is also been accepted by orthopedics after [facility]. Patient is medically stable for transfer and in agreement with transfer
[2019-01-06] MEDS ORDERED: FUROSEMIDE 20 MG TABLET PO SCH (10:00)
[2019-01-06] MEDS ORDERED: ALLOPURINOL 100 MG TABLET PO SCH (10:00)
[2019-01-06] MEDS: OXYCODONE-ACETAMINOPHEN 5-325 MG TABLET PO PRN (17:08)
[2019-01-06] MEDS: ATORVASTATIN CALCIUM 40 MG TABLET PO SCH (21:00)
[2019-01-06] MEDS ORDERED: MEROPENEM 1 GM in NORMAL SALINE 50 ML IV SCH (22:00)
[2019-01-06] MEDS: INSULIN GLARGINE,HUM.REC.ANLOG 1,000 UNIT/10 ML VIAL SUBCUT SCH (22:10)
[2019-01-06 23:29] VITALS: BP 131/84
== END 2019-01-06 11:00 | disposition short-term general hospital (02) | DRG 639 ==
LOC: ER 16:50 → EH 20:10 → 3S 22:31
PROVIDERS: ADMIT Internal Medicine; ATTEND Internal Medicine
PROC: 0S993ZX Drainage of Right Hip Joint, Percutaneous Approach, Diagnostic (ICD-10-PCS; principal; 2019-01-04)
DX: E09.65 Drug or chemical induced diabetes mellitus with hyperglycemia (principal); M25.451 Effusion, right hip; N18.3 Chronic kidney disease, stage 3 (moderate); I25.10 Atherosclerotic heart disease of native coronary artery without angina pectoris; T38.0X5A Adverse effect of glucocorticoids and synthetic analogues, initial encounter; Y92.9 Unspecified place or not applicable; E78.5 Hyperlipidemia, unspecified; I12.9 Hypertensive chronic kidney disease with stage 1 through stage 4 chronic kidney disease, or unspecified chronic kidney disease; F17.210 Nicotine dependence, cigarettes, uncomplicated; N17.9 Acute kidney failure, unspecified; E87.5 Hyperkalemia; I25.2 Old myocardial infarction; Z21 Asymptomatic human immunodeficiency virus [HIV] infection status; Z95.5 Presence of coronary angioplasty implant and graft; Z79.899 Other long term (current) drug therapy; Z79.82 Long term (current) use of aspirin
CPT/HCPCS: 20610; 36415; 71045; 77002; 80048; 81001; 82803; 82962; 83036; 83690; 83735; 84443; 85025; 86360; 87070; 87075; 87077; 87186; 87205; 89050; 93005; 93010; 94640; 96361; 96374; 99284; J0360; J1644; J1815; J2185; J2405; J7030; J7512; J7620

== ENCOUNTER → 2019-01-03 | Outpatient (CLI) | payer MEDICAID ==
[2019-01-03 12:49] LABS: ABSOLUTE LYMPHOCYTES (AUTO) 0.8 10^3/uL (0.5-4.7); ABSOLUTE MONOCYTES (AUTO) 0.5 10^3/uL (0.1-1.4); ABSOLUTE NEUT (AUTO) 9.9 10^3/uL (1.7-8.2); BASOPHILS % (AUTO) 0.2 % (0-2); HEMATOCRIT 46.9 % (37.9-51.0); HEMOGLOBIN 15.2 g/dL (13.5-17.0); LYMPHOCYTES % (AUTO) 6.9 % (13-45); MEAN CORPUSCULAR HGB CONC 32.4 g/dL (32.0-36.0); MEAN CORPUSCULAR VOLUME 95 fl (80-97); MONOCYTES % (AUTO) 4.5 % (3-13); PLATELET COUNT 234 10^3/uL (150-450); RED BLOOD COUNT 4.92 10^6/uL (4.35-5.55); RED CELL DISTRIBUTION WIDTH 14.4 % (11.5-14.0); SEGMENTED NEUTROPHILS % (AUTO) 88.4 % (42-78); TOTAL CELLS COUNTED % (AUTO) 100 %; WHITE BLOOD COUNT 11.2 10^3/uL (4.0-10.5)
[2019-01-03 13:15] LABS: ANION GAP 18 (5-19); BLOOD UREA NITROGEN 66 mg/dL (7-20); CALCIUM 9.1 mg/dL (8.4-10.2); CARBON DIOXIDE 25 mmol/L (22-30); CHLORIDE 83 mmol/L (98-107); POTASSIUM 5.1 mmol/L (3.6-5.0)
[2019-01-03 13:39] LABS: ERYTHROCYTE SEDIMENTATION RATE 37 mm/hr (0-20)
[2019-01-03 13:49] LABS: GLUCOSE 962 mg/dL (75-110)
== END ==
LOC: OD 11:06
PROVIDERS: ATTEND Orthopaedic Surgery
DX: M25.551 Pain in right hip (principal)
CPT/HCPCS: 36415; 80048; 85025; 85652; 86140

== ENCOUNTER 2019-01-31 19:10 | Emergency (ER) | payer MEDICAID ==
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
[2019-01-31 20:40] LABS: ABSOLUTE BASOPHILS # (AUTO) 0.1 10^3/uL (0.0-0.2); ABSOLUTE EOSINOPHILS # (AUTO) 0.2 10^3/uL (0.0-0.6); TOTAL CELLS COUNTED % (AUTO) 100 %
[2019-01-31] MEDS ORDERED: LORAZEPAM INJ 2 MG/1 ML VIAL IV ONE (20:41)
[2019-01-31] MEDS ORDERED: NORMAL SALINE 1000 ML 1,000 ML IV ONE ×2 (20:41→22:21)
[2019-01-31 20:44] LABS: ABSOLUTE MONOCYTES (AUTO) 1.5 10^3/uL (0.1-1.4); ABSOLUTE NEUT (AUTO) 11.5 10^3/uL (1.7-8.2); BASOPHILS % (AUTO) 0.8 % (0-2); HEMATOCRIT 32.9 % (37.9-51.0); LYMPHOCYTES % (AUTO) 18.6 % (13-45); MEAN CORPUSCULAR HEMOGLOBIN 29.9 pg (27.0-33.4); MEAN CORPUSCULAR HGB CONC 33.3 g/dL (32.0-36.0); MEAN CORPUSCULAR VOLUME 90 fl (80-97); MONOCYTES % (AUTO) 9.4 % (3-13); PLATELET COUNT 264 10^3/uL (150-450); RED BLOOD COUNT 3.67 10^6/uL (4.35-5.55); RED CELL DISTRIBUTION WIDTH 15.5 % (11.5-14.0); SEGMENTED NEUTROPHILS % (AUTO) 70.2 % (42-78); WHITE BLOOD COUNT 16.3 10^3/uL (4.0-10.5)
[2019-01-31 20:56] LABS: ALBUMIN 2.9 g/dL (3.5-5.0); ALKALINE PHOSPHATASE 143 U/L (38-126); ANION GAP 9 (5-19); ASPARTATE AMINO TRANSFERASE 157 U/L (17-59); BILIRUBIN,DIRECT 0.3 mg/dL (0.0-0.4); BILIRUBIN,TOTAL 0.6 mg/dL (0.2-1.3); BLOOD UREA NITROGEN 40 mg/dL (7-20); CALCIUM 8.6 mg/dL (8.4-10.2); CARBON DIOXIDE 22 mmol/L (22-30); CHLORIDE 105 mmol/L (98-107); GLUCOSE 104 mg/dL (75-110); POTASSIUM 4.6 mmol/L (3.6-5.0); TOTAL PROTEIN 6.3 g/dL (6.3-8.2)
--- NOTE | 2019-01-31 22:00 | RADIOLOGY REPORT (SQ) ---
EXAM DESCRIPTION: [facility]: XR CHEST 1 VIEW CLINICAL HISTORY: 54 years Male, shortness of breath COMPARISON: 01/03/2019 FINDINGS: Lungs are clear, with no focal infiltrate, pneumothorax, or pleural effusion. Mediastinum is within normal limits for this positioning. Bony structures are unremarkable. IMPRESSION: 1. No acute pulmonary findings.
[2019-02-01 00:52] LABS: APPEARANCE,URINE CLEAR; BILIRUBIN,URINE NEGATIVE (NEGATIVE); COLOR,URINE YELLOW; GLUCOSE, URINE NEGATIVE (NEGATIVE); KETONES,URINE NEGATIVE (NEGATIVE); LEUKOCYTE ESTERASE,URINE NEGATIVE (NEGATIVE); NITRITE,URINE NEGATIVE (NEGATIVE); PROTEIN,URINE 100 mg/dL (NEGATIVE); URINE SPECIFIC GRAVITY 1.014; UROBILINOGEN,URINE NEGATIVE mg/dL (<2.0)
[2019-02-01] MEDS ORDERED: VANCOMYCIN HCL INJ 1000 MG VIAL IV ONE (01:16)
[2019-02-01] MEDS ORDERED: PIPERACILLIN/TAZOBACTAM 3.375 GM VIAL IV ONE (01:17)
[2019-02-01] MEDS ORDERED: MORPHINE SULFATE 10 MG/ML INJ IV ONE (03:15)
[2019-02-01 03:28] VITALS: BP 116/77
--- NOTE | 2019-02-01 03:42 | ER Document Report ---
Doctor's Note Notes: 02/01/19 03:42 stable for transfer. transport has arrived.
== END 2019-02-01 03:47 | disposition short-term general hospital (02) ==
LOC: ER 19:10
DX: N17.9 Acute kidney failure, unspecified (principal); D72.829 Elevated white blood cell count, unspecified; R68.83 Chills (without fever); F17.200 Nicotine dependence, unspecified, uncomplicated; Z98.890 Other specified postprocedural states; I25.10 Atherosclerotic heart disease of native coronary artery without angina pectoris; I10 Essential (primary) hypertension; Z95.5 Presence of coronary angioplasty implant and graft; Z21 Asymptomatic human immunodeficiency virus [HIV] infection status
CPT/HCPCS: 36415; 87040; 85025; 80053; 81001; 83605; 71045; J2270; J2060; J7030; J3370; J2543

== ENCOUNTER 2019-04-15 16:01 | Emergency (ER) | payer MEDICAID ==
[2019-04-15] MEDS ORDERED: OXYCODONE-ACETAMINOPHEN 5-325 MG TABLET PO ONE (16:49)
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
--- NOTE | 2019-04-15 17:48 | RADIOLOGY REPORT (SQ) ---
EXAM DESCRIPTION: HIP RIGHT AP/LATERAL COMPLETED DATE/TIME: 04/15/2019 5:20 pm REASON FOR STUDY: pain swelling surgery nov 6 COMPARISON: None. NUMBER OF VIEWS: Two views. TECHNIQUE: AP pelvis and additional frog-leg view of the right hip. LIMITATIONS: None. FINDINGS: MINERALIZATION: Normal. RIGHT HIP: The femoral head appears to have been resected. LEFT HIP: No fracture or dislocation. No worrisome bone lesions. PUBIS AND ISCHIUM: No fracture. PELVIS: No fracture. SACRUM: No fracture or dislocation. No worrisome bone lesions. LOWER LUMBAR SPINE: No fracture or dislocation. No worrisome bone lesions. No significant disc disea se. SOFT TISSUES: No findings. OTHER: No other significant finding. IMPRESSION: The femoral head appears to have been resected. No acute finding. TECHNICAL DOCUMENTATION: JOB ID: [id number] [employer]- All Rights Reserved Reading location - IP/workstation name: [email or web address]
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
[2019-04-15] MEDS ORDERED: OXYCODONE HCL SR 10 MG TABLET PO ONE (18:49)
--- NOTE | 2019-04-15 21:32 | RADIOLOGY REPORT (SQ) ---
EXAM DESCRIPTION: US EXTREMITY VEINS UNILATERAL COMPLETED DATE/TME: 04/15/2019 16:49 CLINICAL HISTORY: 54 years, Male, right leg pain and swelling recent surger COMPARISON: None. FINDINGS: Duplex imaging of the deep venous system of right lower extremity was performed with visualization from the common femoral veins to the popliteal veins and posterior tibial vein. There is normal compressibility, augmentation and flow with no visualized thrombus. No focal fluid collection is identified. IMPRESSION: No DVT in the right lower extremity..
[2019-04-15 21:52] VITALS: BP 133/75
== END 2019-04-15 21:47 | disposition home or self-care (01) ==
LOC: ER 16:01
DX: M25.551 Pain in right hip (principal); M79.89 Other specified soft tissue disorders; F17.200 Nicotine dependence, unspecified, uncomplicated; I25.10 Atherosclerotic heart disease of native coronary artery without angina pectoris; I10 Essential (primary) hypertension; Z21 Asymptomatic human immunodeficiency virus [HIV] infection status; Z95.5 Presence of coronary angioplasty implant and graft; Z79.899 Other long term (current) drug therapy; Z98.890 Other specified postprocedural states
CPT/HCPCS: 99284; 93971; 73502; J3490

== ENCOUNTER 2019-04-19 19:31 | Emergency (ER) | payer MEDICAID ==
[2019-04-19] MEDS ORDERED: ACETAMINOPHEN 325 MG TABLET PO ONE (20:01)
[2019-04-19] MEDS ORDERED: OXYCODONE HCL IR 5 MG TABLET PO ONE ×2 (20:01→22:30)
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
[2019-04-19 21:09] LABS: ABSOLUTE BASOPHILS # (AUTO) 0.1 10^3/uL (0.0-0.2); ABSOLUTE EOSINOPHILS # (AUTO) 0.3 10^3/uL (0.0-0.6); ABSOLUTE LYMPHOCYTES (AUTO) 2.7 10^3/uL (0.5-4.7); ABSOLUTE MONOCYTES (AUTO) 0.6 10^3/uL (0.1-1.4); ABSOLUTE NEUT (AUTO) 3.1 10^3/uL (1.7-8.2); BASOPHILS % (AUTO) 0.9 % (0-2); HEMATOCRIT 38.5 % (37.9-51.0); HEMOGLOBIN 12.7 g/dL (13.5-17.0); LYMPHOCYTES % (AUTO) 40.1 % (13-45); MEAN CORPUSCULAR HEMOGLOBIN 30.2 pg (27.0-33.4); MEAN CORPUSCULAR VOLUME 91 fl (80-97); MONOCYTES % (AUTO) 9.3 % (3-13); PLATELET COUNT 185 10^3/uL (150-450); RED BLOOD COUNT 4.21 10^6/uL (4.35-5.55); RED CELL DISTRIBUTION WIDTH 16.7 % (11.5-14.0); SEGMENTED NEUTROPHILS % (AUTO) 45.7 % (42-78); TOTAL CELLS COUNTED % (AUTO) 100 %; WHITE BLOOD COUNT 6.8 10^3/uL (4.0-10.5)
[2019-04-19 21:44] LABS: ALBUMIN 3.9 g/dL (3.5-5.0); ALKALINE PHOSPHATASE 170 U/L (38-126); ANION GAP 10 (5-19); ASPARTATE AMINO TRANSFERASE 485 U/L (17-59); BILIRUBIN,DIRECT 0.6 mg/dL (0.0-0.4); BILIRUBIN,TOTAL 0.6 mg/dL (0.2-1.3); BLOOD UREA NITROGEN 24 mg/dL (7-20); CALCIUM 9.5 mg/dL (8.4-10.2); CARBON DIOXIDE 29 mmol/L (22-30); CHLORIDE 106 mmol/L (98-107); GLUCOSE 105 mg/dL (75-110); POTASSIUM 4.3 mmol/L (3.6-5.0)
[2019-04-19] MEDS ORDERED: ACETAMINOPHEN 325 MG TABLET ONE (22:19)
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
[2019-04-20 01:53] VITALS: BP 142/90
== END 2019-04-19 23:20 | disposition home or self-care (01) ==
LOC: ER 19:31
DX: M25.551 Pain in right hip (principal); F17.210 Nicotine dependence, cigarettes, uncomplicated; E78.00 Pure hypercholesterolemia, unspecified; I10 Essential (primary) hypertension; I25.2 Old myocardial infarction; Z21 Asymptomatic human immunodeficiency virus [HIV] infection status
CPT/HCPCS: 99406; 99283; 36415; 85025; 80053; J3490 ×2